=== PATIENT | female | born 1990 | race Caucasian/White ===

== ENCOUNTER 2017-08-03 10:37 | Inpatient (IN) | payer OTHER, SELFPAY ==
[2017-08-03 10:38] VITALS: BP 137/82; PULSE 112; RESP 16; TEMP 36.4; O2SAT 99; BMI 29.2
--- NOTE | 2017-08-03 11:46 | CT_ITS ---
STUDY: CT ABDOMEN AND PELVIS WITHOUT CONTRAST REASON FOR EXAM: Female, 26 years old. Right flank pain. History of kidney stones. RADIATION DOSAGE (If Supplied By Facility): CTDIvol = ( 7.37 ) mGy, DLP = ( 370.31 ) mGycm TECHNIQUE: Transaxial images were obtained from the dome of the diaphragm to the symphysis pubis without oral contrast, and without intravenous contrast. Sagittal and coronal images were reconstructed. Individualized dose optimization techniques were used for this CT. COMPARISON: Comparison is made with prior examination dated July 18, 2017. FINDINGS: The visualized lung bases are unremarkable. The visualized portions of the heart are within normal limits. Normal liver. There are surgical clips in the gallbladder fossa consistent with a prior cholecystectomy. Normal spleen. Normal pancreas. Normal bilateral adrenal glands. Moderate degree of right hydronephrosis and right hydroureter due to a 5 mm calculus in the distal portion of the right ureter just proximal to the ureterovesical junction. There is evidence of a 3 mm nonobstructive calculus in the lower pole calyx of the right kidney. Normal left kidney. Normal visualized stomach. Normal small intestine. Normal colon. The appendix is visualized and appears normal. Normal abdominal aorta. Normal inferior vena cava. Normal retroperitoneum. Normal urinary bladder. Normal abdominal wall. Normal osseous structures. CT/Abdomen/Pelvis without Cont IMPRESSION: 5 mm calculus in the distal portion of the right ureter just proximal to the ureterovesical junction causing a moderate degree of right hydronephrosis and right hydroureter. Nonobstructive 3 mm calculus in the lower pole calyx of the right kidney. Electronically Signed: Jony Alexander MD at 14:06 EST Tel [phone], Service support ,
[2017-08-03] MEDS: Ondansetron 4 MG/2 ML Vial IV ×2 (12:16→23:23)
[2017-08-03] MEDS: 0.9% Normal Saline 1,000 ML 125 ML IV (12:16)
[2017-08-03] MEDS: Ketorolac 30 MG/ML Syringe IV (12:16)
[2017-08-03 12:33] LABS: Absolute Lymphocyte Count 1.02 X10^3/ul (0.83-4.51); Absolute Neutrophil Count 8.8 X10^3/uL (2.0-7.7); Basophil# 0.01 X10^3/uL; Basophil% 0.1 % (0-1); Eosinophil# 0.01 X10^3/uL; Eosinophils% 0.1 % (0-5); Hematocrit 39.4 % (37-47); Hemoglobin 13.5 g/dl (12.0-15.0); Lymphocyte # 1.02 X10^3/ul (4.0); Lymphocyte % 9.9 % (19-41); Mean Corp Hgb Conc 34.3 g/gl (32-36); Mean Corpuscular Hgb 29.6 pg (27.0-32.0); Mean Corpuscular Volume 86.4 fL (81-99); Monocyte% 3.9 % (0-10); Neutrophil # 8.81 X10^3/uL (2.7-7.7); Neutrophil % 85.8 % (47-70); POSITIVE COUNT NO; POSITIVE DIFFERENTIAL NO; POSITIVE MORPHOLOGY NO; Platelet Count 309 K/mm3 (150-450); RBC Distribution Width CV 11.9 % (11.6-14.6); RBC Distribution Width SD 36.9 fl (35.1-43.9); Red Blood Count 4.56 M/mm3 (4.2-5.4); White Blood Count 10.3 K/mm3 (4.4-11.0)
[2017-08-03 12:41] LABS: ALB/GLOB Ratio 0.9 RATIO (0.9-2.4); AST(SGOT) 15 U/L (15-37); Alanine Aminotransfer ALT/SGPT 31 U/L (12-78); Albumin, Serum 3.8 g/dL (3.4-5.0); Alkaline Phosphatase 57 U/L (45-117); Anion Gap 11 (5-15); BUN 15 mg/dL (7-18); BUN/Creat Ratio 19.5 RATIO (10-20); Calcium,Total 8.4 mg/dL (8.5-10.1); Chloride 105 mmol/L (98-107); Creatinine, Serum 0.77 mg/dL (0.55-1.02); EST Glomerular Filtration Rate 95 mL/min (>60); Est Glom Filt Rate - Afr Amer 115 mL/min (>60); Estimated Creatinine Clearance 82.81 ml/min; Globulin 4.3 g/dL (2.2-4.2); Glucose 126 mg/dL (70-110); Lipase 206 U/L (73-393); Potassium 3.3 mmol/L (3.5-5.1); Protein, Total 8.1 g/dL (6.4-8.2); Sodium Level 140 mmol/L (136-145)
[2017-08-03 13:04] LABS: Pregnancy, Serum, hCG Quali. NEGATIVE Negative (0-9 Nonpreg)
[2017-08-03 14:08] LABS: Mucous, Urine 0 SEEN /hpf (<or=2+); Squamous Epithelial Cells - UA 0 SEEN /hpf (5-10)
[2017-08-03 14:11] LABS: Color, Urine Yellow (Yellow); Glucose, Dipstick Normal (Normal); Ketone-Dipstick 15 mg/dl (Negative); Leukocyte Esterase-Dipstick 100 /ul (Negative); Nitrite-Dipstick Negative (Negative); Occult Blood-Urine 250 /ul (Negative); Protein-Dipstick 30 mg/dl (Negative); Urine Bilirubin Dipstick Negative (Negative); Urine Clarity Turbid (Clear); Urine Urobilinogen Normal (Normal)
[2017-08-03 14:14] LABS: Internal QC Validated? YES +Cl - CLEAR BKGD; Pregnancy, Urine Negative Negative
[2017-08-03 14:17] LABS: White Blood Cells 0-5 SEEN /hpf (0-5)
[2017-08-03 14:18] LABS: Amorphous Sediment 2+; Bacteria 2+ /hpf (None Seen); Red Blood Cells-Urine 10-25 SEEN /hpf (0-5)
--- NOTE | 2017-08-03 15:23 | ED.DCSUM_ITS ---
- ER Visit Summary Date of Service: 08/03/17 Chief Complaint: [Right flank pain] History of Present Illness: The patient is a 26 F [resents the emergency department with complaint of right-sided flank pain that she states started today. Patient has had associated vomiting. Patient denies any diarrhea. Patient currently on her menstrual period. Patient states that she was recently in the hospital and diagnosed with a kidney stone on the right side. She denies any fevers.] Physical Examination: HEENT-PERRLA, EOMI. Cranial nerves II through XII grossly intact. TMs clear. Mucous membranes moist. No adenopathy. Cardiovascular-regular rate and rhythm without murmur or ectopy Lungs-clear to auscultation, chest wall stable without crepitus or subcu emphysema Abdomen-normoactive bowel sounds, soft. Patient has tenderness to the right lower quadrant. Patient has CVA tenderness on the right. There is no rebound, rigidity, or perineal signs. Extremities-intact ?4, normal range of motion, normal pulses, atraumatic] Test Results: [CBC with differential obtained showed a white blood cell count of 10.3, hemoglobin 13, hematocrit 39, platelets 309. Chemistries unremarkable other than a slightly depressed potassium at 3.3. Urinalysis unremarkable. HCG was negative. CT flank showed a 5 mm calculus at the right UVJ with moderate hydronephrosis.] Emergency Department Course and Treatment: [Patient was medicated with Toradol, Zofran, and Dilaudid. Patient continues] to complain of pain. Case will be discussed with urologist on-call to the admit patient for pain control. It was noted that patient had a CT scan within the last week that showed a questionable 3 mm stone near the right UVJ versus phlebolith with no hydro-at that time. Treatment Plan: [Admit] Disposition: [Admit] Impression: [Right ureterolithiasis with intractable pain] This note was generated with [employer] dictation software. It may contain incorrect words, spelling, and punctuation that were not noted in review of the chart prior to signing ED Disposition - Plan for ED Patient: Chief Complaint: Flank Pain Referrals: Robert Celeste DO [Primary Care Provider] -
[2017-08-03] MEDS: HYDROmorphone 1 MG/ML Syringe IV (15:37)
[2017-08-03 15:48] VITALS: BP 137/86; PULSE 84; RESP 16; O2SAT 99
[2017-08-03 15:49] VITALS: BP 137/86; PULSE 86; RESP 16; O2SAT 99
[2017-08-03 16:45] VITALS: BMI 29.5
[2017-08-03 16:46] VITALS: BP 133/79; PULSE 84; RESP 18; TEMP 36.4; O2SAT 100
--- NOTE | 2017-08-03 17:17 | PCM.HP.STD ---
Problem List (1) Ureteral calculus, right Status: Acute (2) Hydronephrosis, right Status: Acute (3) Renal colic on right side Status: Acute History of Present Illness Date of Admission: 08/03/17 Chief Complaint: 26-year-old female with a 5 mm stone distal right ureter with intractable renal colic admitted from the emergency room. The patient is a 26 year old with severe pain from a stone in the distal right ureter female who presented to the emergency room now for the second time she has a 5 mm stone in the distal right ureter intractable renal colic was admitted for admission from the emergency room. She is otherwise healthy but has not been able to pass the stone about 2 weeks. CAT scan demonstrated severe right hydronephrosis from high-grade obstruction from the distal right stone. Past Medical History Allergies latex Allergy (Verified 07/18/17 13:12) Swelling Home Medications: Ambulatory Orders Medication Instructions Recorded Venlafaxine HCl [Effexor] 37.5 mg PO DAILY 09/12/15 Ranitidine [Zantac] 150 mg PO BID PRN PRN 08/03/17 Surgical History: arthroscopy, knee, cholecystectomy Psychiatric History: No pertinent psych hx CARE ADVOCATE History: No pertinent CARE ADVOCATE history Lives: Spouse/ Significant Other Smoking Status: Never smoker Tobacco Use: Non-smoker Alcohol: None Drugs: None - *Family History Maternal History Items: No pertinent history Review of Systems Constitutional: Denies: Chills, Fever, Weight Change HEENT: Denies: Head Aches, Sinus Congestion, Sinus Drainage Cardiovascular: Denies: Chest Pain, Palpitations Respiratory: Denies: Cough, Shortness of breath at rest, Sputum production Gastrointestinal: Denies: Abdominal Pain, Nausea, Vomiting Genitourinary: Denies: Dysuria Musculoskeletal: Denies: Joint Pain, Joint Tenderness Skin: Denies: Rash, Wounds Neurological: Denies: Numbness, Tingling, Focal weakness Psychiatric: Denies: Anxiety, Depression, Homicidal Ideations, Suicidal Ideations Hematologic/ Lymphatic: Denies: Easy Bruising, Easy Bleeding VTE Information - Inpt Only VTE Present on Admission: No VTE Mechan Device Prophylaxis: SCD's Patient Problems: Active and Suspected Problems Ureteral calculus, right (Acute) Hydronephrosis, right (Acute) Renal colic on right side (Acute) - Physical Exam General: Alert, Oriented x3, Cooperative HEENT: Atraumatic, PERRLA, EOMI, Normocephalic Neck: Supple, No JVD, Negative Carotid Bruits Lungs: Clear to auscultation, Normal air movement Cardiovascular: Regular rate, No murmurs Abdomen: Bowel Sounds Present, Soft, Non Tender Extremities: No edema, Capillary Refill Less than 3 Seconds Skin: No rashes, No breakdown Musculoskeletal: No Tenderness to Palpation of Joints or Extremities Neurological: Cranial nerves II-XII grossly intact Psych/Mental Status: Normal Affect, Appropriate Vital Signs Temp Pulse Resp BP Pulse Ox 97.6 F L 84 18 133/79 H 100 08/03/17 16:46 08/03/17 16:46 08/03/17 16:46 08/03/17 16:46 08/03/17 16:46 Oxygen Delivery Method Room Air Weight: 70.76 kg Body Mass Index (BMI) 29.5 Assessment/Plan Active and Suspected Problems Ureteral calculus, right (Acute) Hydronephrosis, right (Acute) Renal colic on right side (Acute) Admitted for pain control. Will be n.p.o. at midnight. Plan for surgery tomorrow with right ESWL possible stent possible ureteroscopy. Explained to the patient the surgery and given the pain and the stone she was willing to proceed if she does not pass the stone by tomorrow.
[2017-08-03] MEDS: 0.9% Normal Saline 1,000 ML 100 ML IV (18:29)
[2017-08-03] MEDS: Ketorolac 15 MG/ML Vial IV (20:29)
[2017-08-03] MEDS: Venlafaxine XR 37.5 MG Capsule PO (20:29)
[2017-08-03 21:49] VITALS: BP 128/82; PULSE 76; RESP 18; TEMP 36.7; O2SAT 100
[2017-08-03] MEDS: Ciprofloxacin 400 MG/200 ML BAG 200 MG IV (22:08)
[2017-08-04] VITALS (9 sets, daily range): BP systolic 100–129; BP diastolic 66–94; PULSE 65–95; RESP 14–20; TEMP 36.5–37.1; O2SAT 95–100; BMI 29.5
[2017-08-04] MEDS: proCHLORPERazine 10 MG/2 ML Vial IV (05:18)
[2017-08-04] MEDS: 0.9% Normal Saline 1,000 ML 100 ML IV ×2 (05:18→16:52)
[2017-08-04] MEDS: Ciprofloxacin 400 MG/200 ML BAG 200 MG IV (09:57)
--- NOTE | 2017-08-04 12:43 | NURSING ---
off unit via bed for or. report called to sharon boateng rn
--- NOTE | 2017-08-04 13:47 | DCINST_ITS ---
Discharge Diet: Light diet - advance as tolerated Discharge Activity: Return to Normal Activity Call your doctor if you observe: Fever of 101 or Higher, Uncontrolled pain Instructions: Shock Wave Lithotripsy Allergies/Adverse Reactions: Allergies latex Allergy (Verified 07/18/17 13:12) Swelling Medications to take at Discharge Venlafaxine HCl [Effexor] 37.5 mg PO DAILY 09/12/15 Ranitidine [Zantac] 150 mg PO BID PRN PRN 08/03/17 Ciprofloxacin [Cipro] 500 mg PO BID #10 tab 08/04/17 Docusate Sodium [Colace] 100 mg PO DAILY #14 cap 08/04/17 Hydrocodone/Acetaminophen [[place] 5-325 Tablet] 1 ea PO Q4H PRN PRN #14 tab 08/04 The following prescriptions were given: Hydrocodone/Acetaminophen [[place] 5-325 Tablet] 1 ea PO Q4H PRN PRN #14 tab PRN Reason: Pain Docusate Sodium [Colace] 100 mg PO DAILY #14 cap Ciprofloxacin [Cipro] 500 mg PO BID #10 tab Primary Care Physician: Robert Celeste DO [Primary Care Provider] - Please Follow Up With: Yousuf Wallace MD When: in 2 weeks, please call to make an appointment.
--- NOTE | 2017-08-04 14:48 | PCM.OPRPT ---
Problem List (1) Ureteral calculus, right Status: Acute (2) Hydronephrosis, right Status: Acute (3) Renal colic on right side Status: Acute Report of Operation Date of Procedure: 08/04/17 Pre-Operative Diagnosis: Right distal ureteral calculi causing high-grade obstruction Post-Operative Diagnosis: Same Surgery/Procedure Performed:: Right extracorporeal shockwave lithotripsy Description of Surgical Findings:: 26-year-old female was taken back to the operating room at the smooth induction of general anesthesia she was placed supine on the table we then localize and found the stone in the distal left ureter in the pelvis we able to move the lithotripter into place and we applied shockwave lithotripter to the stone a total of 3000 shockwaves were delivered to the stone the distal ureter and. The stone broke up with a little pieces, some few fragments are still left in the ureter but should pass on her own. At that point we decided not to leave a stent in patient's anesthetic was reversed is taken back to the PACU in good condition for bypass the stone in a few days she will be discharged home and she can follow-up in the office with a KUB in a few weeks. Type of Anesthesia:: General Drains: none - Admit VTE Documentation VTE Present on Admission: No VTE Mechan Device Prophylaxis: SCD's
[2017-08-04] MEDS: Venlafaxine XR 37.5 MG Capsule PO (16:48)
[2017-08-04] MEDS: Polyethylene Glycol 3350 17 GM PACKET PO (16:48)
[2017-08-04] MEDS: Ketorolac 15 MG/ML Vial IV (16:52)
== END 2017-08-04 18:42 | disposition home or self-care (01) | DRG 691 ==
LOC: ED 12:19 → MS3 16:40
PROVIDERS: Emergency Medicine; Admitting Provider Urology; Emergency Provider Emergency Medicine; Family Provider Student in an Organized Health Care Education/Training Program; PCP Student in an Organized Health Care Education/Training Program; Visit Provider Urology
PROC: 0TF6XZZ Fragmentation in Right Ureter, External Approach (ICD-10-PCS; CPT 50590; principal; 2017-08-04 17:00)
DX: N13.2 Hydronephrosis with renal and ureteral calculous obstruction (principal); Z79.899 Other long term (current) drug therapy; Z90.49 Acquired absence of other specified parts of digestive tract
CPT/HCPCS: 74176; 80053; 81001; 81025; 83690; 84703; 85025; 99282; J7030; J0744; J2405

== ENCOUNTER → 2017-08-22 08:55 | Outpatient (CLI) | payer OTHER, SELFPAY ==
--- NOTE | 2017-08-22 08:58 | RAD_ITS ---
STUDY: X-RAY - ABDOMEN/PELVIS REASON FOR EXAM: Female, 27 years old. Kidney stones. TECHNIQUE: Single AP view of the abdomen / pelvis. COMPARISON: CT scan 08/03/2017. FINDINGS: Normal visualized lung bases. There is an unremarkable bowel gas pattern. There is no demonstrated free abdominal air. The visualized liver, spleen and kidneys are grossly normal in size and morphology. No definite renal or ureteral stones. Normal soft tissue structures. Normal visualized osseous structures. RAD/Abdomen Single View IMPRESSION: No definite renal or ureteral stones. Electronically Signed: Red Davies MD at 17:33 EST , Service support ,
== END ==
PROVIDERS: Family Provider Student in an Organized Health Care Education/Training Program; PCP Student in an Organized Health Care Education/Training Program; Visit Provider Urology
DX: N20.0 Calculus of kidney (principal)
CPT/HCPCS: 74018

== ENCOUNTER → 2017-08-22 10:12 | Outpatient (CLI) | payer OTHER, SELFPAY ==
[2017-08-22 11:17] LABS: Anion Gap 7 (5-15); BUN 12 mg/dL (7-18); BUN/Creat Ratio 20.2 RATIO (10-20); Calcium,Total 8.3 mg/dL (8.5-10.1); Chloride 107 mmol/L (98-107); Creatinine, Serum 0.59 mg/dL (0.55-1.02); EST Glomerular Filtration Rate 128 mL/min (>60); Est Glom Filt Rate - Afr Amer 155 mL/min (>60); Glucose 87 mg/dL (74-106); Potassium 3.8 mmol/L (3.5-5.1); Sodium Level 141 mmol/L (136-145)
== END ==
PROVIDERS: Family Provider Student in an Organized Health Care Education/Training Program; PCP Student in an Organized Health Care Education/Training Program; Visit Provider Urology
DX: N20.0 Calculus of kidney (principal)
CPT/HCPCS: 36415; 80048

== ENCOUNTER → 2017-10-10 13:19 | Outpatient (CLI) | payer OTHER, SELFPAY ==
[2017-10-10 14:59] LABS: Absolute Lymphocyte Count 1.02 X10^3/ul (0.83-4.51); Absolute Neutrophil Count 2.8 X10^3/uL (2.0-7.7); Eosinophil# 0.02 X10^3/uL; Eosinophils% 0.5 % (0-5); Hemoglobin 12.6 g/dl (12.0-15.0); Lymphocyte # 1.02 X10^3/ul (4.0); Lymphocyte % 23.9 % (19-41); Mean Corp Hgb Conc 33.2 g/gl (32-36); Mean Corpuscular Hgb 28.9 pg (27.0-32.0); Mean Corpuscular Volume 87.2 fL (81-99); Mean Platelet Vol. 9.8 fl (6.2-12.0); Monocyte# 0.47 X10^3/uL; Neutrophil # 2.75 X10^3/uL (2.7-7.7); Neutrophil % 64.6 % (47-70); Platelet Count 241 K/mm3 (150-450); RBC Distribution Width CV 12.7 % (11.6-14.6); RBC Distribution Width SD 40.7 fl (35.1-43.9); Red Blood Count 4.36 M/mm3 (4.2-5.4); White Blood Count 4.3 K/mm3 (4.4-11.0)
[2017-10-10 15:07] LABS: POSITIVE COUNT NO; POSITIVE DIFFERENTIAL NO; POSITIVE MORPHOLOGY NO
[2017-10-11 09:25] LABS: HIV - WCH Non-Reactive (Nonreactive); Rubella IgG 29.1 IU/mL
[2017-10-13 02:34] LABS: Rapid Plasmin Reagin (RPR) NONREACTIVE (NONREACTIVE)
[2017-10-13 09:21] LABS: HEPATITIS B SURFACE AG Negative (Negative)
== END ==
PROVIDERS: Family Provider Student in an Organized Health Care Education/Training Program; PCP Student in an Organized Health Care Education/Training Program; Visit Provider Obstetrics & Gynecology
DX: Z34.90 Encounter for supervision of normal pregnancy, unspecified, unspecified trimester (principal)
CPT/HCPCS: 85025; 86592; 86703; 86762; 86850; 86900; 86901; 87340

== ENCOUNTER → 2017-10-10 16:23 | Outpatient (CLI) | payer OTHER, SELFPAY ==
[2017-10-10 21:37] LABS: Chlamydia Trachomatis by PCR Negative (Negative); Neisserai gonorrhoeae by PCR Negative (Negative); Probe Check PASS; Sample Adequacy Control PASS; Specimen Processing Control PASS
[2017-10-13 17:19] LABS: HPV Reflexed? NOT INDICATED
== END ==
PROVIDERS: Family Provider Student in an Organized Health Care Education/Training Program; PCP Student in an Organized Health Care Education/Training Program; Visit Provider Obstetrics & Gynecology
DX: Z34.90 Encounter for supervision of normal pregnancy, unspecified, unspecified trimester (principal); Z12.4 Encounter for screening for malignant neoplasm of cervix
CPT/HCPCS: 87086; 87088; 87491; 87591; 88175; G0145

== ENCOUNTER → 2017-10-12 13:55 | Outpatient (CLI) | payer OTHER, SELFPAY ==
--- NOTE | 2017-10-12 14:01 | US_ITS ---
STUDY: THYROID ULTRASOUND REASON FOR EXAM: Female, 27 years old. Enlarged thyroid gland. TECHNIQUE: Ultrasound evaluation of the thyroid was performed with real-time and static bowers-scale imaging. COMPARISON: None. FINDINGS: RIGHT LOBE: The right lobe of the thyroid gland measures 5.5 x 1.6 x 1.6 cm. There is a homogeneous echotexture. There are several anechoic 2 mm structures throughout the thyroid parenchyma consistent with tiny cysts. LEFT LOBE: The left lobe of the thyroid gland measures 5.1 x 1.7 x 1.2 cm. There is a homogeneous echotexture. There are multiple hypoechoic regions within the left lobe of the thyroid, the largest measuring 3 mm in diameter. There is a tiny central region of echogenicity, consistent with colloid cysts. ISTHMUS: The isthmus measures 3 mm. The regional lymph nodes are normal. US/Thyroid IMPRESSION: Multiple bilateral tiny cysts, likely colloid cysts scattered throughout the thyroid parenchyma. Electronically Signed: Travon Lora DO at 14:31 EDT Tel , Service support ,
== END ==
PROVIDERS: Family Provider Student in an Organized Health Care Education/Training Program; PCP Student in an Organized Health Care Education/Training Program; Visit Provider Obstetrics & Gynecology
DX: E04.9 Nontoxic goiter, unspecified (principal)
CPT/HCPCS: 76536

== ENCOUNTER → 2017-10-17 10:47 | Outpatient (CLI) | payer OTHER, SELFPAY ==
[2017-10-17 12:27] LABS: T4 Free Direct 1.07 ng/dL (0.76-1.46)
== END ==
PROVIDERS: Family Provider Student in an Organized Health Care Education/Training Program; PCP Student in an Organized Health Care Education/Training Program; Visit Provider Obstetrics & Gynecology
DX: E01.0 Iodine-deficiency related diffuse (endemic) goiter (principal)
CPT/HCPCS: 36415; 84439; 84443

== ENCOUNTER → 2018-01-08 08:09 | Outpatient (CLI) | payer OTHER, SELFPAY ==
--- NOTE | 2018-01-08 08:10 | US_ITS ---
STUDY: SECOND AND THIRD TRIMESTER OBSTETRICAL ULTRASOUND REASON FOR EXAM: Female, 27 years old. Anatomy scan. LMP: 08/30/2017 TECHNIQUE: Transabdominal PRIOR ULTRASOUND: None. FINDINGS: There is a single intrauterine fetus. The fetus is in a transverse lie with the head on the maternal right side. There is demonstrated cardiac activity with a heart rate of 150 bpm. There is a normal amniotic fluid volume. The largest amniotic fluid pocket measures 4.4 cm. The placenta is posterior with a complete previa. There are Grade 0 placental changes. The cervix measures 5.5 cm in length. The adnexal regions are not visualized. BIOMETRY: BPD: 4.1: 18 weeks, 4 days HC: 15.8: 18 weeks, 5 days AC: 13.2: 18 weeks, 5 days FL: 2.9: 18 weeks, 6 days CI: FL/BPD: FL/HC: FL/AC: HC/AC: age by current US: 18 weeks, 5 days. KRYSTEN by current US: 06/06/2016. Estimated weight: 254 grams, +/- 37 grams, 46 %. age by prior US: weeks, days. KRYSTEN by prior US: . Age by LMP: 18 weeks, 5 days. KRYSTEN by LMP: 06/06/2016. ANATOMY: Gender: Female Cranium: Normal lateral ventricles. Normal choroid plexus. Normal cerebellum. Normal cisterna magna. Normal face, nose and lips. Chest: Normal 4-chamber heart. Abdomen/Pelvis: Normal diaphragm. Normal stomach. Normal abdominal wall. Normal cord insertion. Normal 3 vessel cord. Normal kidneys. Normal bladder. Spine: Normal cervical spine. Normal thoracic spine. Normal lumbar spine. Normal sacrum. Extremities: Normal bilateral upper extremities. Normal bilateral lower extremities. US/OB Anatomy Scan IMPRESSION: Single live fetus in a transverse presentation. No demonstrated anatomic abnormality. Placenta is grade 0 and complete previa. Cervix is closed. age by current US: 18 weeks, 5 days. KRYSTEN by current US: 06/06/2016. Estimated weight: 254 grams, +/- 37 grams, 46 %. Electronically Signed: Red Davies MD at 17:04 EDT , Service support ,
== END ==
LOC: OPUS 08:09
PROVIDERS: Family Provider Student in an Organized Health Care Education/Training Program; PCP Student in an Organized Health Care Education/Training Program; Visit Provider Obstetrics & Gynecology
DX: Z34.81 Encounter for supervision of other normal pregnancy, first trimester (principal)
CPT/HCPCS: 76805

== ENCOUNTER → 2018-03-07 12:18 | Outpatient (CLI) | payer SELFPAY ==
[2018-03-07 13:08] LABS: Absolute Lymphocyte Count 1.24 X10^3/ul (0.83-4.51); Absolute Neutrophil Count 5.4 X10^3/uL (2.0-7.7); Basophil# 0.01 X10^3/uL; Basophil% 0.1 % (0-1); Eosinophil# 0.01 X10^3/uL; Eosinophils% 0.1 % (0-5); Hematocrit 34.1 % (37-47); Hemoglobin 11.3 g/dl (12.0-15.0); Lymphocyte # 1.24 X10^3/ul (4.0); Lymphocyte % 17.6 % (19-41); Mean Corp Hgb Conc 33.1 g/gl (32-36); Mean Corpuscular Hgb 30.5 pg (27.0-32.0); Mean Corpuscular Volume 92.2 fL (81-99); Mean Platelet Vol. 9.8 fl (6.2-12.0); Monocyte# 0.41 X10^3/uL; Monocyte% 5.8 % (0-10); Neutrophil # 5.35 X10^3/uL (2.7-7.7); Neutrophil % 76.3 % (47-70); POSITIVE COUNT NO; POSITIVE DIFFERENTIAL NO; POSITIVE MORPHOLOGY NO; Platelet Count 182 K/mm3 (150-450); RBC Distribution Width SD 43.7 fl (35.1-43.9)
[2018-03-07 13:30] LABS: Glucose Challenge Gest 1H 50g 68 mg/dL (70-140)
== END ==
PROVIDERS: Nurse Practitioner Women's Health; Family Provider Student in an Organized Health Care Education/Training Program; PCP Student in an Organized Health Care Education/Training Program; Visit Provider Obstetrics & Gynecology
DX: O09.92 Supervision of high risk pregnancy, unspecified, second trimester (principal); Z67.91 Unspecified blood type, Rh negative; Z3A.00 Weeks of gestation of pregnancy not specified
CPT/HCPCS: 36415; 82950; 85025; 86850; 86900

== ENCOUNTER → 2018-03-16 08:16 | Outpatient (CLI) | payer SELFPAY | PROVIDERS: Family Provider Student in an Organized Health Care Education/Training Program; PCP Student in an Organized Health Care Education/Training Program; Visit Provider Nurse Practitioner Women's Health | DX: O44.00 Complete placenta previa NOS or without hemorrhage, unspecified trimester (principal); Z3A.00 Weeks of gestation of pregnancy not specified | CPT/HCPCS: 76816 ==

== ENCOUNTER → 2018-04-05 17:19 | Outpatient (CLI) | payer SELFPAY | PROVIDERS: Family Provider Student in an Organized Health Care Education/Training Program; PCP Student in an Organized Health Care Education/Training Program; Referring Provider Obstetrics & Gynecology; Visit Provider Obstetrics & Gynecology | DX: M54.5 Low back pain (principal) | CPT/HCPCS: 87086; 87088 ==

== ENCOUNTER → 2018-04-10 14:40 | Outpatient (CLI) | payer SELFPAY ==
[2018-04-10 16:13] LABS: Absolute Lymphocyte Count 1.21 X10^3/ul (0.83-4.51); Absolute Neutrophil Count 7.3 X10^3/uL (2.0-7.7); Basophil# 0.01 X10^3/uL; Basophil% 0.1 % (0-1); Eosinophil# 0.01 X10^3/uL; Eosinophils% 0.1 % (0-5); Hematocrit 35.5 % (37-47); Hemoglobin 11.7 g/dl (12.0-15.0); Lymphocyte # 1.21 X10^3/ul (4.0); Lymphocyte % 13.1 % (19-41); Mean Corpuscular Hgb 30.6 pg (27.0-32.0); Mean Corpuscular Volume 92.9 fL (81-99); Mean Platelet Vol. 10.7 fl (6.2-12.0); Monocyte# 0.63 X10^3/uL; Monocyte% 6.8 % (0-10); Neutrophil # 7.32 X10^3/uL (2.7-7.7); Neutrophil % 79.6 % (47-70); Platelet Count 211 K/mm3 (150-450); RBC Distribution Width CV 12.6 % (11.6-14.6); RBC Distribution Width SD 41.2 fl (35.1-43.9); Red Blood Count 3.82 M/mm3 (4.2-5.4); White Blood Count 9.2 K/mm3 (4.4-11.0)
[2018-04-10 16:16] LABS: POSITIVE COUNT NO; POSITIVE DIFFERENTIAL NO; POSITIVE MORPHOLOGY NO
[2018-04-10 16:47] LABS: ALB/GLOB Ratio 0.6 RATIO (0.9-2.4); AST(SGOT) 12 U/L (15-37); Alanine Aminotransfer ALT/SGPT 12 U/L (13-56); Albumin, Serum 2.7 g/dL (3.2-5.0); Alkaline Phosphatase 99 U/L (45-117); Anion Gap 8 (5-15); BUN 9 mg/dL (7-18); Calcium,Total 8.4 mg/dL (8.5-10.1); Chloride 105 mmol/L (98-107); Creatinine, Serum 0.56 mg/dL (0.55-1.02); EST Glomerular Filtration Rate 136 mL/min (>60); Est Glom Filt Rate - Afr Amer 164 mL/min (>60); Globulin 4.5 g/dL (2.2-4.2); Glucose 80 mg/dL (74-106); LDH 173 U/L (84-246); Potassium 3.6 mmol/L (3.5-5.1); Protein, Total 7.2 g/dL (6.4-8.2); Sodium Level 139 mmol/L (136-145)
[2018-04-10 16:59] LABS: Protein, Urine (Random) 14.2 mg/dL (<11.9); Protein:Creat Ratio 178 mg/g CRE (0-200)
== END ==
PROVIDERS: Family Provider Student in an Organized Health Care Education/Training Program; PCP Student in an Organized Health Care Education/Training Program; Referring Provider Obstetrics & Gynecology; Visit Provider Obstetrics & Gynecology
DX: I10 Essential (primary) hypertension (principal)
CPT/HCPCS: 36415; 80053; 82570; 83615; 84156; 84550; 85025

== ENCOUNTER → 2018-04-23 09:04 | Outpatient (CLI) | payer SELFPAY ==
--- NOTE | 2018-04-23 09:06 | US_ITS ---
STUDY: SECOND AND THIRD TRIMESTER OBSTETRICAL ULTRASOUND - LIMITED REASON FOR EXAM: Female, 27 years old. History of low-lying placenta. LMP: August 30, 2017. PRIOR ULTRASOUND: Comparison is made with prior study dated March 16, 2018. TECHNIQUE: Transabdominal and Transvaginal TECHNICAL QUALITY: Adequate. FINDINGS: There is a single intrauterine fetus. The fetus is in a cephalic presentation. There is demonstrated cardiac activity with a heart rate of 138 bpm. There is a normal amniotic fluid volume. The largest amniotic fluid pocket measures 3.4 cm x 1.5 cm. The amniotic fluid index (XAVI) is 9.65 cm. The placenta is posterior and low lying but not previa in location. The tip of the placenta is 1.5 cm from the cervical os. There are Grade 1 placental changes. The cervix measures 4.4 cm in length. BIOMETRY: BPD: 7.77 cm: 31 weeks, 2 days HC: 30.36 cm: 33 weeks, 6 days AC: 30.3 cm: 34 weeks, 2 days FL: 6.96 cm: 35 weeks, 5 days Age by LMP: 34 weeks, 0 days. KRYSTEN by LMP: June 04, 2018. age by prior US: 33 weeks, 5 days. KRYSTEN by prior US: June 06, 2018. age by current US: 33 weeks, 6 days. KRYSTEN by current US: June 05, 2018. Estimated weight: 2395 grams, +/- 350 grams, 52 percentile. Gender: Indeterminant US/OB Limited With Biometrics IMPRESSION: Single live uterine gestation with a mean gestational age of 33 weeks and 5 days. The measurements obtained today following the normal expected range. Low-lying posterior placenta. The distal tip of the placenta lies 1.5 cm away from the cervical os. Electronically Signed: Jony Alexander MD at 14:43 EDT Tel [phone], Service support ,
== END ==
PROVIDERS: Family Provider Student in an Organized Health Care Education/Training Program; PCP Student in an Organized Health Care Education/Training Program; Referring Provider Obstetrics & Gynecology; Visit Provider Obstetrics & Gynecology
DX: O44.43 Low lying placenta NOS or without hemorrhage, third trimester (principal); Z3A.33 33 weeks gestation of pregnancy
CPT/HCPCS: 76816

== ENCOUNTER 2018-04-29 19:26 | Outpatient (CLI) | payer SELFPAY ==
[2018-04-29 19:52] VITALS: BMI 36.8
[2018-04-29 20:18] LABS: Mucous, Urine 0 SEEN /hpf (<or=2+)
[2018-04-29 20:21] LABS: Hematocrit 33.5 % (37-47); Hemoglobin 11.1 g/dl (12.0-15.0); Mean Corp Hgb Conc 33.1 g/gl (32-36); Mean Corpuscular Hgb 30.5 pg (27.0-32.0); Mean Platelet Vol. 10.6 fl (6.2-12.0); Platelet Count 186 K/mm3 (150-450); RBC Distribution Width CV 12.2 % (11.6-14.6); RBC Distribution Width SD 39.5 fl (35.1-43.9); Red Blood Count 3.64 M/mm3 (4.2-5.4); Scan Indicated on CBC? Y/N NO; White Blood Count 8.7 K/mm3 (4.4-11.0)
[2018-04-29 20:22] LABS: Color, Urine Yellow (Yellow); Glucose, Dipstick Normal (Normal); Ketone-Dipstick Negative (Negative); Leukocyte Esterase-Dipstick 25 /ul (Negative); Nitrite-Dipstick Negative (Negative); Occult Blood-Urine Negative /ul (Negative); Protein-Dipstick Negative (Negative); Specific Gravity, Urine 1.015 (1.002-1.030); Urine Bilirubin Dipstick Negative (Negative); Urine Clarity Clear (Clear); Urine Urobilinogen Normal (Normal)
[2018-04-29 20:33] LABS: Creatinine, Serum 0.56 mg/dL (0.55-1.02); EST Glomerular Filtration Rate 135 mL/min (>60); Est Glom Filt Rate - Afr Amer 163 mL/min (>60); Estimated Creatinine Clearance 112.86 ml/min; Red Blood Cells-Urine 0-5 SEEN /hpf (0-5); Squamous Epithelial Cells - UA 0-5 SEEN /hpf (5-10)
[2018-04-29 20:34] LABS: Bacteria RARE /hpf (None Seen); White Blood Cells 0-5 SEEN /hpf (0-5)
[2018-04-29 20:37] LABS: Fibrinogen 512 mg/dl (203-444)
--- NOTE | 2018-04-30 02:33 | OB.TRI.HP_ITS ---
- Problem List (1) Abdominal pain affecting Status: Acute History of Present Illness Date of Service: 04/29/18 Was patient seen by the physician?: No Reason For Visit: R/O LABOR History of Present Illness: presents with abdominal pain no bleeding elevated temp but no fever Allergies latex Allergy (Verified 04/29/18 19:53) Swelling oxycodone Allergy (Verified 04/29/18 19:53) Itching - Pertinent Past Medical History Medical History: Past Medical History (Last Reviewed 04/18/18 @ 13:00 by Keyana Chauhan) Anxiety (Acute) effexor Surgical History: Past Surgical History (Last Reviewed 04/18/18 @ 13:00 by Keyana Chauhan) History of cholecystectomy S/P ACL repair kidney stone surgery Laboratory Studies: Laboratory Tests 04/29/18 04/29/18 04/29/18 Range/Units 20:00 20:00 20:00 WBC (4.4-11.0) K/mm3 RBC (4.2-5.4) M/mm3 Hgb (12.0-15.0) g/dl Hct (37-47) % MCV (81-99) fL MCH (27.0-32.0) pg MCHC (32-36) g/gl RDW (11.6-14.6) % RDW Differential (35.1-43.9) fl Plt Count (150-450) K/mm3 MPV (6.2-12.0) fl Fibrinogen 512 H (203-444) mg/dl Creatinine 0.56 (0.55-1.02) mg/dL Estim Creat Clear Calc 112.86 ml/min Est GFR (MDRD) Af Amer 163 (>60) mL/min Est GFR (MDRD) Non-Af 135 (>60) mL/min Urine Color Yellow (Yellow) Urine Clarity Clear (Clear) Urine pH 8.0 (5.0 - 8.0) Ur Specific [place] 1.015 (1.002-1.030) Urine Protein Negative (Negative) mg/dl Urine Glucose (UA) Normal (Normal) mg/dl Urine Ketones Negative (Negative) mg/dl Urine Occult Blood Negative (Negative) /ul Urine Nitrite Negative (Negative) Urine Bilirubin Negative (Negative) mg/dL Urine Urobilinogen Normal (Normal) mg/dl Ur Leukocyte Esterase 25 H (Negative) /ul Urine RBC 0-5 SEEN (0-5) /hpf Urine WBC 0-5 SEEN (0-5) /hpf Ur Squamous Epith Cells 0-5 SEEN (5-10) /hpf Urine Bacteria RARE (None Seen) /hpf Urine Mucus 0 SEEN (<or=2+) /hpf 04/29/18 Range/Units 20:00 WBC 8.7 (4.4-11.0) K/mm3 RBC 3.64 L (4.2-5.4) M/mm3 Hgb 11.1 L (12.0-15.0) g/dl Hct 33.5 L (37-47) % MCV 92.0 (81-99) fL MCH 30.5 (27.0-32.0) pg MCHC 33.1 (32-36) g/gl RDW 12.2 (11.6-14.6) % RDW Differential 39.5 (35.1-43.9) fl Plt Count 186 (150-450) K/mm3 MPV 10.6 (6.2-12.0) fl Fibrinogen (203-444) mg/dl Creatinine (0.55-1.02) mg/dL Estim Creat Clear Calc ml/min Est GFR (MDRD) Af Amer (>60) mL/min Est GFR (MDRD) Non-Af (>60) mL/min Urine Color (Yellow) Urine Clarity (Clear) Urine pH (5.0 - 8.0) Ur Specific [place] (1.002-1.030) Urine Protein (Negative) mg/dl Urine Glucose (UA) (Normal) mg/dl Urine Ketones (Negative) mg/dl Urine Occult Blood (Negative) /ul Urine Nitrite (Negative) Urine Bilirubin (Negative) mg/dL Urine Urobilinogen (Normal) mg/dl Ur Leukocyte Esterase (Negative) /ul Urine RBC (0-5) /hpf Urine WBC (0-5) /hpf Ur Squamous Epith Cells (5-10) /hpf Urine Bacteria (None Seen) /hpf Urine Mucus (<or=2+) /hpf NST - FHR Rate Baby A Baseline: 140 Variability:: Moderate Accelerations:: 15 x 15 Decelerations:: None NST Reactive:: Yes FHR Category:: Category I Uterine Activity:: no regular Impression/Plan abdominal pain- no contractions, reassuring labs reactive nst dc home labor precautions. flexeril given
== END 2018-04-29 21:04 | disposition home or self-care (01) ==
LOC: WPOUT 19:37 → WP 19:37
PROVIDERS: Family Provider Student in an Organized Health Care Education/Training Program; PCP Student in an Organized Health Care Education/Training Program; Visit Provider Obstetrics & Gynecology
DX: O26.899 Other specified pregnancy related conditions, unspecified trimester (principal); R10.9 Unspecified abdominal pain; O99.340 Other mental disorders complicating pregnancy, unspecified trimester; F41.9 Anxiety disorder, unspecified; Z3A.00 Weeks of gestation of pregnancy not specified
CPT/HCPCS: 36415; 59025; 59050; 81001; 82565; 85027; 85384; 87086; 87088; 99218; G0378

== ENCOUNTER 2018-05-03 13:35 | Outpatient (CLI) | payer SELFPAY ==
[2018-05-03] MEDS: Lactated Ringers 1,000 ML 999 ML IV (14:10)
[2018-05-03 14:17] VITALS: BMI 37.5
[2018-05-03 14:25] LABS: Hematocrit 35.1 % (37-47); Hemoglobin 11.8 g/dl (12.0-15.0); Mean Corp Hgb Conc 33.6 g/gl (32-36); Mean Corpuscular Hgb 30.6 pg (27.0-32.0); Mean Corpuscular Volume 91.2 fL (81-99); Mean Platelet Vol. 10.2 fl (6.2-12.0); Platelet Count 207 K/mm3 (150-450); RBC Distribution Width CV 12.3 % (11.6-14.6); RBC Distribution Width SD 40.2 fl (35.1-43.9); Red Blood Count 3.85 M/mm3 (4.2-5.4); White Blood Count 9.3 K/mm3 (4.4-11.0)
[2018-05-03 14:26] LABS: Scan Indicated on CBC? Y/N NO
[2018-05-03 14:32] LABS: International Normalized Ratio 0.9; Prothrombin Time (Protime)PT. 12.4 SECONDS (11.7-14.9)
[2018-05-03 14:33] LABS: Partial Thromboplast Time 24.6 Seconds (24.1-36.2)
[2018-05-03] MEDS: proMETHazine 25 MG/ML Syringe 12.5 MG IV (14:34)
[2018-05-03 14:35] LABS: Protein, Urine (Random) 31.1 mg/dL (<11.9); Protein:Creat Ratio 171 mg/g CRE (0-200)
[2018-05-03] MEDS: Betamethasone/Betamethasone 30 MG/5 ML Vial 12 MG IM (14:36)
[2018-05-03 14:46] LABS: AST(SGOT) 12 U/L (15-37); Alanine Aminotransfer ALT/SGPT 13 U/L (13-56); Creatinine, Serum 0.49 mg/dL (0.55-1.02); EST Glomerular Filtration Rate 159 mL/min (>60); Est Glom Filt Rate - Afr Amer 192 mL/min (>60); Estimated Creatinine Clearance 128.98 ml/min; Uric Acid 3.7 mg/dL (2.6-6.0)
[2018-05-03] MEDS: 0.9% Saline Lock 10 ML Syringe IV (15:21)
[2018-05-03] MEDS: Acetaminophen 500 MG Tablet 1000 MG PO (17:01)
[2018-05-03] MEDS: Ondansetron 4 MG/2 ML Vial IV (17:02)
--- NOTE | 2018-05-03 21:20 | OB.TRI.NOTE ---
- Problem List (1) Elevated blood pressure affecting in third trimester, antepartum Status: Acute (2) Abdominal pain affecting Status: Acute History of Present Illness Date of Service: 05/03/18 Was patient seen by the physician?: Yes Reason For Visit: RULE OUT PREECLAMPSIA Date of Service: 05/03/18 History of Present Illness: patient presents with complaints of headache intemittent visual spots and co pelvic pressure ad adbominal pain. she states she just doesn't feel good. she admits good fm and denies vb or lof. she had an initially elevated bp in the office earlier. Allergies latex Allergy (Verified 05/03/18 12:03) Swelling oxycodone Allergy (Verified 05/03/18 12:03) Itching - Pertinent Past Medical History Medical History: Past Medical History (Last Reviewed 05/03/18 @ 12:03 by Mary Ribera) Anxiety (Acute) effexor Surgical History: Past Surgical History (Last Reviewed 05/03/18 @ 12:03 by Mary Ribera) History of cholecystectomy S/P ACL repair kidney stone surgery Laboratory Studies: Laboratory Tests 05/03/18 05/03/18 05/03/18 Range/Units 14:10 14:10 14:10 WBC 9.3 (4.4-11.0) K/mm3 RBC 3.85 L (4.2-5.4) M/mm3 Hgb 11.8 L (12.0-15.0) g/dl Hct 35.1 L (37-47) % MCV 91.2 (81-99) fL MCH 30.6 (27.0-32.0) pg MCHC 33.6 (32-36) g/gl RDW 12.3 (11.6-14.6) % RDW Differential 40.2 (35.1-43.9) fl Plt Count 207 (150-450) K/mm3 MPV 10.2 (6.2-12.0) fl PT 12.4 (11.7-14.9) SECONDS INR 0.9 APTT 24.6 (24.1-36.2) Seconds Creatinine 0.49 L (0.55-1.02) mg/dL Estim Creat Clear Calc 128.98 ml/min Est GFR (MDRD) Af Amer 192 (>60) mL/min Est GFR (MDRD) Non-Af 159 (>60) mL/min Uric Acid 3.7 (2.6-6.0) mg/dL AST 12 L (15-37) U/L ALT 13 (13-56) U/L U Random Total Protein (<11.9) mg/dL Urine Creatinine (NO RANGE EST.) mg/dL Protein/Creatinin Ratio (0-200) mg/g CRE //18 Range/Units 12:15 WBC (4.4-11.0) K/mm3 RBC (4.2-5.4) M/mm3 Hgb (12.0-15.0) g/dl Hct (37-47) % MCV (81-99) fL MCH (27.0-32.0) pg MCHC (32-36) g/gl RDW (11.6-14.6) % RDW Differential (35.1-43.9) fl Plt Count (150-450) K/mm3 MPV (6.2-12.0) fl PT (11.7-14.9) SECONDS INR APTT (24.1-36.2) Seconds Creatinine (0.55-1.02) mg/dL Estim Creat Clear Calc ml/min Est GFR (MDRD) Af Amer (>60) mL/min Est GFR (MDRD) Non-Af (>60) mL/min Uric Acid (2.6-6.0) mg/dL AST (15-37) U/L ALT (13-56) U/L U Random Total Protein 31.1 H (<11.9) mg/dL Urine Creatinine 182.00 (NO RANGE EST.) mg/dL Protein/Creatinin Ratio 171 (0-200) mg/g CRE Review of Systems Constitutional: Denies: Fever, Malaise Eyes: Denies: Blurred vision, Vision Change HEENT: Denies: Head Aches, Visual Changes Cardiovascular: Denies: Chest Pain, Palpitations Respiratory: Denies: Cough, Shortness of Breath, Wheezing Gastrointestinal: Denies: Abdominal Pain, Diarrhea, Nausea, Vomiting Genitourinary: Denies: Dysuria, Hematuria Musculoskeletal: Denies: Joint Pain, Muscle pain Skin: Denies: Lesions, Rash Neurological: Denies: Blurred vision, Focal weakness, Headaches Psychiatric: Denies: Anxiety, Depression Endocrine: Denies: Heat/ Cold Intolerance Hematologic/ Lymphatic: Denies: Easy Bruising, Easy Bleeding Physical Exam General: Alert, Cooperative, No apparent distress HEENT: Atraumatic, Normocephalic. Negative for: Thyromegaly, Lymphadenopathy Cardiovascular: Regular rate Lungs: Normal air movement Abdomen: Soft, Non Tender, Gravid Neurological: Deep Tendon Reflexes 2+/4 and Symmetrical, Neuro grossly intact. Negative for: Clonus SENIOR FINANCIAL REPORTING ANALYST: Normal external genitalia. Negative for: Vulvar lesions Estimated gestational size: Appropriate for gestational size Presentation: Cephalic NST - FHR Rate Baby A Baseline: 140 Variability:: Moderate Accelerations:: 15 x 15 Decelerations:: None NST Reactive:: Yes FHR Category:: Category I Uterine Activity:: no regular Impression/Plan 27 yo with abdominal pain and elevated blood pressure- repeat bps all normal and normal labs, saravia resolved with tylenol and phenergan, zofran resolved nausea. reassuring status, BMZ given, will fu tomorrow for second dose dc home
== END 2018-05-03 17:45 | disposition home or self-care (01) ==
LOC: WPOUT 13:49 → WP 13:50
PROVIDERS: Family Provider Student in an Organized Health Care Education/Training Program; PCP Student in an Organized Health Care Education/Training Program; Referring Provider Obstetrics & Gynecology; Visit Provider Obstetrics & Gynecology
DX: O26.899 Other specified pregnancy related conditions, unspecified trimester (principal); R10.9 Unspecified abdominal pain; R03.0 Elevated blood-pressure reading, without diagnosis of hypertension; Z3A.00 Weeks of gestation of pregnancy not specified
CPT/HCPCS: 96361; 96374; 96375; 36415; 59025; 59050; 82565; 82570; 84156; 84450; 84460; 84550; 85027; 85610; 85730; 96372; 99218; J7120; A4216; G0378; J0702; J2405

== ENCOUNTER 2018-05-04 14:25 | Outpatient (CLI) | payer SELFPAY ==
[2018-05-04 15:02] VITALS: BMI 37.0
[2018-05-04] MEDS: Betamethasone/Betamethasone 30 MG/5 ML Vial 12 MG IM (15:10)
--- NOTE | 2018-05-06 02:50 | OB.TRI.NOTE ---
- Problem List (1) Abdominal pain affecting Status: Acute (2) Elevated blood pressure affecting in third trimester, antepartum Status: Acute History of Present Illness Date of Service: 05/04/18 Reason For Visit: STEROID SHOT History of Present Illness: second steroid shot Allergies latex Allergy (Verified 05/03/18 12:03) Swelling oxycodone Allergy (Verified 05/03/18 12:03) Itching - Pertinent Past Medical History Medical History: Past Medical History (Last Reviewed 05/03/18 @ 12:03 by Mary Ribera) Anxiety (Acute) effexor Surgical History: Past Surgical History (Last Reviewed 05/03/18 @ 12:03 by Mary Ribera) History of cholecystectomy S/P ACL repair kidney stone surgery Impression/Plan abdominal pain elevated bp, second celestone shot given, patient feeling better. fu as scheduled
== END 2018-05-04 15:10 | disposition home or self-care (01) ==
LOC: WPOUT 14:35 → WP 14:36
PROVIDERS: Family Provider Student in an Organized Health Care Education/Training Program; PCP Student in an Organized Health Care Education/Training Program; Referring Provider Obstetrics & Gynecology; Visit Provider Obstetrics & Gynecology
DX: O26.899 Other specified pregnancy related conditions, unspecified trimester (principal); R10.9 Unspecified abdominal pain; O16.3 Unspecified maternal hypertension, third trimester; O99.340 Other mental disorders complicating pregnancy, unspecified trimester; F41.9 Anxiety disorder, unspecified; Z3A.00 Weeks of gestation of pregnancy not specified
CPT/HCPCS: 96372; 99218; G0378; J0702

== ENCOUNTER → 2018-05-09 11:47 | Outpatient (CLI) | payer SELFPAY ==
[2018-05-09 12:12] LABS: ROM Internal Control Test YES-OK TO RESULT pt. (Internal QC); ROM Patient Test Negative (Negative)
[2018-05-09 16:14] LABS: Group B Strep DNA By PCR Negative (Negative); Internal Control PASS; Probe Check PASS; Specimen Processing Control PASS
== END ==
PROVIDERS: Family Provider Student in an Organized Health Care Education/Training Program; PCP Student in an Organized Health Care Education/Training Program; Referring Provider Obstetrics & Gynecology; Visit Provider Obstetrics & Gynecology
DX: O09.92 Supervision of high risk pregnancy, unspecified, second trimester (principal); O99.89 Other specified diseases and conditions complicating pregnancy, childbirth and the puerperium; N89.8 Other specified noninflammatory disorders of vagina; Z3A.00 Weeks of gestation of pregnancy not specified
CPT/HCPCS: 84112; 87081; 87653

== ENCOUNTER 2018-05-10 13:30 | Outpatient (CLI) | payer SELFPAY ==
[2018-05-10 13:37] VITALS: BMI 37.4
[2018-05-10 14:23] LABS: Protein, Urine (Random) 30.5 mg/dL (<11.9); Protein:Creat Ratio 188 mg/g CRE (0-200)
--- NOTE | 2018-05-21 21:11 | OB.TRI.NOTE ---
- Problem List (1) Decreased movement Status: Acute History of Present Illness Date of Service: 05/10/18 Was patient seen by the physician?: No Reason For Visit: DECREASED MOVEMENT History of Present Illness: decreased movement Allergies latex Allergy (Verified 05/21/18 12:00) Swelling oxycodone Allergy (Verified 05/21/18 12:00) Itching - Pertinent Past Medical History Medical History: Past Medical History (Last Reviewed 05/21/18 @ 12:00 by Keyana Chauhan) Anxiety (Acute) effexor Surgical History: Past Surgical History (Last Reviewed 05/21/18 @ 12:00 by Keyana Chauhan) History of cholecystectomy S/P ACL repair kidney stone surgery Laboratory Studies: Laboratory Tests 05/10/18 Range/Units 14:00 U Random Total Protein 30.5 H (<11.9) mg/dL Urine Creatinine 162.00 (NO RANGE EST.) mg/dL Protein/Creatinin Ratio 188 (0-200) mg/g CRE NST - FHR Rate Baby A Baseline: 140 Variability:: Moderate Accelerations:: 15 x 15 Decelerations:: None NST Reactive:: Yes FHR Category:: Category I Uterine Activity:: irregular Impression/Plan decreased movement, reactive nst reassuring FHT dc home fu as scheduled
== END 2018-05-10 14:30 | disposition home or self-care (01) ==
LOC: WPOUT 13:36 → WP 13:36
PROVIDERS: Family Provider Student in an Organized Health Care Education/Training Program; PCP Student in an Organized Health Care Education/Training Program; Referring Provider Obstetrics & Gynecology; Visit Provider Obstetrics & Gynecology
DX: O36.8190 Decreased fetal movements, unspecified trimester, not applicable or unspecified (principal); O99.340 Other mental disorders complicating pregnancy, unspecified trimester; F41.9 Anxiety disorder, unspecified; Z3A.00 Weeks of gestation of pregnancy not specified
CPT/HCPCS: 59025; 59050; 82570; 84156; 99218; G0378

== ENCOUNTER → 2018-05-14 09:10 | Outpatient (CLI) | payer SELFPAY ==
--- NOTE | 2018-05-14 09:13 | US_ITS ---
STUDY: SECOND AND THIRD TRIMESTER OBSTETRICAL ULTRASOUND - LIMITED REASON FOR EXAM: Female, 27 years old. Routine survey. History of a low-lying placenta. LMP: August 28, 2017. PRIOR ULTRASOUND: Comparison is made with prior examination dated April 23, 2018. TECHNIQUE: Transabdominal and Transvaginal TECHNICAL QUALITY: Adequate. FINDINGS: There is a single intrauterine fetus. The fetus is in a cephalic presentation. There is demonstrated cardiac activity with a heart rate of 136 bpm. There is a normal amniotic fluid volume. The largest amniotic fluid pocket measures 3.0 cm x 8.7 cm. The amniotic fluid index (XAVI) is 7.6 cm. The placenta is posterior and low lying but not previa in location. The distal tip of the placenta is 1.9 cm away from the cervical os. There are Grade 1 placental changes. The cervix measures 4.27 cm in length. BIOMETRY: BPD: 8.41 cm: 34 weeks, 0 days HC: 31.75 cm: 35 weeks, 5 days AC: 33.27 cm: 37 weeks, 2 days FL: 7.05 cm: 36 weeks, 1 days Age by LMP: 37 weeks, 0 days. KRYSTEN by LMP: June 04, 2018. age by prior US: 36 weeks, 6 days. KRYSTEN by prior US: June 05, 2018. age by current US: 35 weeks, 6 days. KRYSTEN by current US: June 12, 2018. Estimated weight: 2921 grams, +/- 426 grams, 39 percentile. Gender: Indeterminant US/OB Limited With Biometrics IMPRESSION: Single live intrauterine gestation with mean gestational age of 36 weeks and 6 days. The measurements obtained today following the normal expected range. Posterior low-lying placenta. Distal tip of the placenta measures 1.9 cm away from the cervical os. Electronically Signed: Jony Alexander MD at 9:39 EST Tel [phone], Service support ,
== END ==
PROVIDERS: Family Provider Student in an Organized Health Care Education/Training Program; PCP Student in an Organized Health Care Education/Training Program; Referring Provider Obstetrics & Gynecology; Visit Provider Obstetrics & Gynecology
DX: O44.43 Low lying placenta NOS or without hemorrhage, third trimester (principal); Z3A.00 Weeks of gestation of pregnancy not specified
CPT/HCPCS: 76816

== ENCOUNTER → 2018-05-16 18:19 | Outpatient (CLI) | payer SELFPAY ==
[2018-05-16 18:45] LABS: Protein, Urine (Random) 15.6 mg/dL (<11.9); Protein:Creat Ratio 119 mg/g CRE (0-200)
== END ==
PROVIDERS: Family Provider Student in an Organized Health Care Education/Training Program; PCP Student in an Organized Health Care Education/Training Program; Referring Provider Obstetrics & Gynecology; Visit Provider Obstetrics & Gynecology
DX: I10 Essential (primary) hypertension (principal)
CPT/HCPCS: 82570; 84156

== ENCOUNTER 2018-05-27 04:25 | Inpatient (IN) | payer SELFPAY ==
[2018-05-27 03:37] VITALS: BMI 34.9
[2018-05-27] MEDS: Lactated Ringers 1,000 ML 50 ML IV (04:40)
[2018-05-27 05:08] LABS: Hemoglobin 12.1 g/dl (12.0-15.0); Mean Corp Hgb Conc 32.7 g/gl (32-36); Mean Corpuscular Hgb 29.6 pg (27.0-32.0); Mean Corpuscular Volume 90.5 fL (81-99); Mean Platelet Vol. 10.3 fl (6.2-12.0); Platelet Count 236 K/mm3 (150-450); RBC Distribution Width CV 12.6 % (11.6-14.6); RBC Distribution Width SD 41.1 fl (35.1-43.9); Red Blood Count 4.09 M/mm3 (4.2-5.4); White Blood Count 10.7 K/mm3 (4.4-11.0)
[2018-05-27 05:12] LABS: Scan Indicated on CBC? Y/N NO
--- NOTE | 2018-05-27 05:58 | PCM.HP.OB ---
- Problem List (1) heart rate decelerations affecting management of mother Status: Acute (2) Low lying placenta nos or without hemorrhage, third trimester Status: Acute Comment: 2 cm away- cleared for vaginal delivery (3) Supervision of high risk in second trimester Status: Acute Comment: PRR KRYSTEN 06/06/18 girl Aleks Dave Lucas (4) Rh negative state in antepartum period Status: Acute Comment: RHOGAM PRN and 28 weeks- given (5) Anxiety Status: Acute Comment: effexor (6) Thyromegaly Status: Acute Comment: Cyst only on US, normal TSH History Date of Admission: 08/03/17 Final KRYSTEN: 06/04/18 Gestational age: 38 Weeks and 6 Days History of this : This is a 27 year-old, at 38 weeks gestational age presents due to contractions and she was found to not make any cervical change however she had a spontaneous heart rate deceleration that lasted 3 minutes. Due to the decel, the decision for delivery was made. Overall there is a category I tracing present so an IOL for planned is appropriate. Medical History: Medical History (Last Reviewed 05/21/18 @ 12:00 by Keyana Chauhan) Anxiety (Acute) F41.9 effexor Surgical History: Surgical History (Last Reviewed 05/21/18 @ 12:00 by Keyana Chauhan) History of cholecystectomy Z90.49 S/P ACL repair Z98.890 kidney stone surgery Allergies latex Allergy (Verified 05/27/18 03:39) Swelling oxycodone Allergy (Verified 05/27/18 03:39) Itching Home Medications: Home Medications vitamin,calcium,mcqswzoj-xzzf-bjovc acid tablet 1 tab PO QDAY 10/10/17 venlafaxine 37.5 mg tablet 37.5 mg PO DAILY #90 tab 11/21/17 ranitidine 150 mg tablet 150 mg PO BID PRN PRN #60 tab 03/09/18 Smoking Status: Never smoker Alcohol: None Number of Fetus(es): 1 Heart Tracins moderate variability reactive category I tracing now, previous 3 minute decel into 90s TOCO Analysis: irregular History Past Pregnancies: Past PregnanciesPregancy History 4 Elective abortions Hx Para 2 Spontaneous abortions 1 Hx # Term Pregnancies 2 Ectopic pregnancies Hx # Pregnancies Multiple births # of living children 2 Past Pregnancies Del. Date Name GA/Weeks Outcome Route Bth Weight Gen Labor Lgth Anesthesia Del Locatn Provider FOB Unknown 2008 Aleks 38 live - full term 6lbs 15 oz Male epidural [facility] AT Unknown 2016 [place] 38 live - full term 7LBS 4OZ Male epidural [facility] rr Labs: Mom's Problem List Problem Status Onset Code heart rate decelerations affecting management of mother Acute O36.8390 Mom's Labs & Results 05/27/18 05/27/18 05/27/18 04:40 04:40 04:40 WBC 10.7 RBC 4.09 L Hgb 12.1 Hct 37.0 MCV 90.5 MCH 29.6 MCHC 32.7 RDW 12.6 RDW Differential 41.1 Plt Count 236 MPV 10.3 Blood Type Cancelled Pending A1 Antigen Typing Cancelled Rho(D) Type Cancelled Antibody Screen Cancelled Pending Course Did the patient receive Yes care? Labs Blood Type: A RH: NEGATIVE RPR/VDRL/Syphilis Nonreactive Rubella status Immune HbSAg Negative Date Done: 10/10/17 Chlamydia Negative Gonorrhea Negative HIV/AIDS Non-Reactive Group B Strep: Negative Current Obstetrical History Gestational Diabetes No Incompetent Cervix No Infertility No IUGR No Macrosomia No Hypertension/Pre-eclampsia Yes: higher bp towards the end of , but no meds Placenta Previa/Abruption Yes: resolved PTL/PROM No Uterine anomaly No Oligohydramnios No Polyhydramnios No Multiple gestation No Past Medical History Asthma No Diabetes No Hypertension No Heart disease No Mitral valve prolapse No Neurologic/Seizure disorder/ No Migraines Kidney disease No Liver disease No Varicosities No Clotting disorders/Hx of DVT No Thyroid Dysfunction No Other medical diseases No Psychiatric disorders Yes: anxiety and depression Major trauma No Abnormal PAP smear No Sleep apnea No Mammogram in the last 2 years No Social History Marital Status: Alleged father Lucas Blake Hx Smoking No Smoking Status Never smoker Expected Delivery Method: Spontaneous Vaginal Describe any other labor & delivery plans:: OB Visit. KRYSTEN Calculator. Estimated Delivery Date 06/06/18. Based on Ultrasound Date 10/10/17. Current WG 37w 5d. Number 1. Expected Delivery Route/Plan. . Specific Issue/Plans. flu vaccine: no. minichart given: yes. tdap vaccine: given. rhogam: given. LARC form signed:declines. labor support person: Lucas. pain management: epidural. cut cord/dad catch: yes. : yes. PP control planned: []. special requests: [] Review of Systems Constitutional: Denies: Fever, Malaise Eyes: Denies: Blurred vision, Vision Change HEENT: Denies: Head Aches, Visual Changes Cardiovascular: Denies: Chest Pain, Palpitations Respiratory: Denies: Cough, Shortness of Breath, Wheezing Gastrointestinal: Denies: Abdominal Pain, Diarrhea, Nausea, Vomiting Genitourinary: Denies: Dysuria, Hematuria Musculoskeletal: Denies: Joint Pain, Muscle pain Skin: Denies: Lesions, Rash Neurological: Denies: Blurred vision, Focal weakness, Headaches Psychiatric: Denies: Anxiety, Depression Endocrine: Denies: Heat/ Cold Intolerance Hematologic/ Lymphatic: Denies: Easy Bruising, Easy Bleeding Physical Exam General: Alert, Cooperative, No apparent distress HEENT: Atraumatic, Normocephalic. Negative for: Thyromegaly, Lymphadenopathy Cardiovascular: Regular rate Lungs: Normal air movement Abdomen: Soft, Non Tender, Gravid Neurological: Deep Tendon Reflexes 2+/4 and Symmetrical, Neuro grossly intact. Negative for: Clonus [employer]: Normal external genitalia. Negative for: Vulvar lesions Estimated gestational size: Appropriate for gestational size Presentation: Cephalic Assessment/Plan All Active Problems (Last Reviewed 05/21/18 @ 12:00 by Keyana Chauhan) heart rate decelerations affecting management of mother (Acute) Low lying placenta nos or without hemorrhage, third trimester (Acute) Supervision of high risk in second trimester (Acute) Rh negative state in antepartum period (Acute) Anxiety (Acute) Thyromegaly (Acute) Abdominal pain affecting (Resolved) Decreased movement (Resolved) Elevated blood pressure affecting in third trimester, antepartum (Resolved) Hydronephrosis, right (Resolved) Placenta previa antepartum (Resolved) Renal colic on right side (Resolved) Ureteral calculus, right (Resolved) This is a 27 year-old, , at 38 weeks gestational age presents for IOL secondary to heart rate decel Patient presents IOL, plan expectant management for , cytotec then pitocin/AROM PRN Pain management: plans epidural. GBS neg rh neg- rhogam after delivery if indicated Management of any complications: borderline low lying placenta- resolved I have reviewed the [facility] and made any clinically relevant updates.
[2018-05-27] MEDS: miSOPROStol 25 MCG TABLET VAGINAL (08:20)
--- NOTE | 2018-05-27 12:08 | PCM.PN.BLA ---
Progress Note fht 140s moderate variability reactive no decels s/p cytotec x 1- now /-3 recommend pitocin and epi PRN
[2018-05-27] MEDS: Oxytocin 30 units/NS 500 ml 30 UNITS/500 ML IV.SOLN 167 UNITS IV ×3 (12:55→18:30)
[2018-05-27] MEDS: Oxytocin 30 units/NS 500 ml 30 UNITS/500 ML IV.SOLN 334 UNITS IV (18:00)
--- NOTE | 2018-05-27 18:16 | PCM.OB.VAG ---
- Problem List (1) heart rate decelerations affecting management of mother Status: Acute (2) Low lying placenta nos or without hemorrhage, third trimester Status: Acute Comment: 2 cm away- cleared for vaginal delivery (3) Supervision of high risk in second trimester Status: Acute Comment: PRR KRYSTEN 06/06/18 girl Aleks Dave Lucas (4) Rh negative state in antepartum period Status: Acute Comment: RHOGAM PRN and 28 weeks- given (5) Anxiety Status: Acute Comment: effexor (6) Thyromegaly Status: Acute Comment: Cyst only on US, normal TSH Vaginal Delivery Maternal Presentation: Medically Indicated Induction 27-year-old at 38 weeks 6 days induction of labor secondary to heart rate decelerations Method of Induction: Pitocin, Cytotec Medical Reason for Induction: Compromise: list: Amniotic Membrane Rupture Type: Artificial Amniotic Fluid Description: Moderate meconium Final KRYSTEN: 06/04/18 Gestational age: 38 Weeks and 6 Days Date of Procedure: 05/27/18 Pre-Operative Diagnosis: Induction of labor deceleration Post-Operative Diagnosis: Same Surgery/ Procedure Performed: Spontaneous Vaginal Delivery Type of Anesthesia: Epidural Description of Procedure: Patient began pushing and delivered the head in the MALATHI presentation. The head was delivered atraumatically a loose nuchal cord x2 was identified and easily reduced over the infant's head. The anterior and posterior shoulders delivered without complication followed by the rest of the and the was placed on the maternal abdomen. Delayed cord clamping was employed for approximately 60 seconds. Cord was clamped and cut and gentle traction was applied to the cord and the placenta delivered spontaneously immediately following it was noted to be intact with three-vessel cord. The perineum and vagina were inspected and noted to have no laceration. EBL was 400 cc and some mild uterine atony was encountered but with bimanual massage and emptying the bladder bleeding was within normal limits. Methergine x1 was given.. Patient and tolerated delivery well. Presentation: MALATHI Placental Delivery Description: Spontaneous Placenta Disposition: [facility] Cord Vessel Description: 3 Vessels Cord Entanglement: Around neck x 2, loose Estimated Blood Loss: 400 Infant A gender: Female Episiotomy Description: None Laceration: None Medications given after delivery: IV Pitocin, IM Methergin Complications: None
[2018-05-28] MEDS: Acetaminophen 500 MG Tablet 1000 MG PO (00:06)
[2018-05-28 00:08] VITALS: BP 102/68; PULSE 97; RESP 16; TEMP 36.3; O2SAT 97
[2018-05-28 04:00] VITALS: BP 122/65; PULSE 85; RESP 18; TEMP 36.4
--- NOTE | 2018-05-28 07:52 | PCM.PN.OB ---
Patient Problems: Active and Suspected Problems (Last Reviewed 05/21/18 @ 12:00 by Keyana Chauhan) heart rate decelerations affecting management of mother (Acute) Subjective: No CP, LOF. Doing well - Physical Exam General: Alert, Oriented x3 Abdomen: Soft, Non Tender, - - FF below U Vital Signs Temp Pulse Resp BP Pulse Ox 97.5 F L 85 18 122/65 H 97 05/28/18 04:00 05/28/18 04:00 05/28/18 04:00 05/28/18 04:00 05/28/18 00:08 Oxygen Delivery Method Room Air Weight: 203 lb 14.841 oz Body Mass Index (BMI) 34.9 Finger Stick Blood Glucose 84 Intake and Output for Last 24 Hours 05/26/18 05/27/18 05/28/18 23:59 23:59 23:59 Output Total 400 / 400 350 / 350 Balance -400 / -400 -350 / -350 Laboratory Tests Past 24 Hrs 05/27/18 20:51 Screen NEGATIVE Baby's Blood Type A POSITIVE Baby's ANTWAN NEGATIVE Medical Necessity - Tobacco Use Smoking Status: Never smoker Assessment/Plan All Active Problems (Last Reviewed 05/21/18 @ 12:00 by Keyana Chauhan) heart rate decelerations affecting management of mother (Acute) Low lying placenta nos or without hemorrhage, third trimester (Acute) Supervision of high risk in second trimester (Acute) Rh negative state in antepartum period (Acute) Anxiety (Acute) Thyromegaly (Acute) Abdominal pain affecting (Resolved) Decreased movement (Resolved) Elevated blood pressure affecting in third trimester, antepartum (Resolved) Hydronephrosis, right (Resolved) Placenta previa antepartum (Resolved) Renal colic on right side (Resolved) Ureteral calculus, right (Resolved) PPD #1: Routine care, needs rhogam. Pain controlled.
[2018-05-28] MEDS: Venlafaxine HCl 75 MG Tablet 37.5 MG PO (08:02)
[2018-05-28] MEDS: Senna/Docusate Sodium 1 Tablet PO (08:02)
[2018-05-28] MEDS: Naproxen 250 MG Tablet PO (08:04)
[2018-05-28 08:53] VITALS: BP 105/76; PULSE 87; RESP 16; TEMP 36.3; O2SAT 98
[2018-05-28] MEDS: Prenatal Vits Tablet 1 TABLET PO (10:34)
[2018-05-28 11:50] VITALS: BP 108/81; PULSE 80; RESP 16; TEMP 36.3; O2SAT 94
[2018-05-28 15:15] VITALS: BP 119/56; PULSE 87; RESP 16; TEMP 36.3
[2018-05-28 19:40] VITALS: BP 126/63; PULSE 90; RESP 16; TEMP 36.3; O2SAT 97
[2018-05-29 01:00] VITALS: BP 125/71; PULSE 85; RESP 16; TEMP 35.9; O2SAT 98
[2018-05-29] MEDS: Naproxen 250 MG Tablet PO (01:01)
[2018-05-29 08:12] VITALS: BP 112/67; PULSE 80; RESP 18; TEMP 36.3
[2018-05-29] MEDS: Senna/Docusate Sodium 1 Tablet PO (08:27)
[2018-05-29] MEDS: Prenatal Vits Tablet 1 TABLET PO (08:27)
--- NOTE | 2018-05-29 08:36 | PCM.PN.OB ---
Patient Problems: Active and Suspected Problems (Last Reviewed 05/21/18 @ 12:00 by Keyana Chauhan) heart rate decelerations affecting management of mother (Acute) Subjective: No CP, SOb. Doing well. Plans home today. - Physical Exam General: Alert, Oriented x3 Abdomen: Soft, Non Tender, - - FF below U Vital Signs Temp Pulse Resp BP Pulse Ox 97.3 F L 80 18 112/67 98 05/29/18 08:12 05/29/18 08:12 05/29/18 08:12 05/29/18 08:12 05/29/18 01:00 Oxygen Delivery Method Room Air Weight: 203 lb 14.841 oz Body Mass Index (BMI) 34.9 Finger Stick Blood Glucose 84 Intake and Output for Last 24 Hours 05/27/18 05/28/18 05/29/18 23:59 23:59 23:59 Output Total 400 / 400 350 / 350 Balance -400 / -400 -350 / -350 Medical Necessity - Tobacco Use Smoking Status: Never smoker Assessment/Plan All Active Problems (Last Reviewed 05/21/18 @ 12:00 by Keyana Chauhan) heart rate decelerations affecting management of mother (Acute) Low lying placenta nos or without hemorrhage, third trimester (Acute) Supervision of high risk in second trimester (Acute) Rh negative state in antepartum period (Acute) Anxiety (Acute) Thyromegaly (Acute) Abdominal pain affecting (Resolved) Decreased movement (Resolved) Elevated blood pressure affecting in third trimester, antepartum (Resolved) Hydronephrosis, right (Resolved) Placenta previa antepartum (Resolved) Renal colic on right side (Resolved) Ureteral calculus, right (Resolved) PPD #2 Routine care. . Home today. Needs rhogam.
--- NOTE | 2018-05-29 08:38 | PCM.DCVAG ---
Additional Instructions: If you experience any of the following, contact your healthcare provider. Bleeding that soaks a pad every hour for 2 hours Fever 100.4 or higher Unrelieved incision or abdominal pain Swelling, redness, discharge or bleeding from your incision or episiotomy site Your incision begins to separate Problems urinating (including inability to urinate or burning while urinating). Visual changes Severe headache Flu-like symptoms Pain or redness in one of both of your breasts Pain, warmth, tenderness or swelling in your legs, especially the calf area Frequent nausea and vomiting Symptoms of depression or anxiety If you experience any of the following, call 911 or go to the nearest Emergency Room. Chest pain Problems breathing Seizure activity Partial or complete paralysis of a body part, slurred speech, weakness or drooping of the face, or a sudden inability to walk or hold your balance Allergies/Adverse Reactions: Allergies latex Allergy (Verified 05/27/18 03:39) Swelling oxycodone Allergy (Verified 05/27/18 03:39) Itching Medications to take at Discharge vitamin,calcium,wxlvzcly-saaa-xnfxb acid tablet 1 tab PO QDAY 10/10/17 venlafaxine 37.5 mg tablet 37.5 mg PO DAILY #90 tab 11/21/17 ranitidine 150 mg tablet 150 mg PO BID PRN PRN #60 tab 03/09/18 Primary Care Physician: Robert Celeste DO [Primary Care Provider] - Test Results: Test results from this visit will be discussed in further detail at your follow-up appointment, if applicable.
--- NOTE | 2018-05-29 08:39 | DCINST_ITS ---
Additional Instructions: If you experience any of the following, contact your healthcare provider. * Bleeding that soaks a pad every hour for 2 hours * Fever 100.4 or higher * Unrelieved incision or abdominal pain * Swelling, redness, discharge or bleeding from your incision or episiotomy site * Your incision begins to separate * Problems urinating (including inability to urinate or burning while urinating). * Visual changes * Severe headache * Flu-like symptoms * Pain or redness in one of both of your breasts * Pain, warmth, tenderness or swelling in your legs, especially the calf area * Frequent nausea and vomiting * Symptoms of depression or anxiety If you experience any of the following, call 911 or go to the nearest Emergency Room. * Chest pain * Problems breathing * Seizure activity * Partial or complete paralysis of a body part, slurred speech, weakness or drooping of the face, or a sudden inability to walk or hold your balance Allergies/Adverse Reactions: Allergies latex Allergy (Verified 05/27/18 03:39) Swelling oxycodone Allergy (Verified 05/27/18 03:39) Itching Medications to take at Discharge vitamin,calcium,xyusredw-qwaw-jgpdc acid tablet 1 tab PO QDAY 10/10/17 venlafaxine 37.5 mg tablet 37.5 mg PO DAILY #90 tab 11/21/17 ranitidine 150 mg tablet 150 mg PO BID PRN PRN #60 tab 03/09/18 Primary Care Physician: Robert Celeste DO [Primary Care Provider] - Test Results: Test results from this visit will be discussed in further detail at your follow- up appointment, if applicable.
[2018-05-29] MEDS: Venlafaxine HCl 75 MG Tablet 37.5 MG PO (09:48)
--- NOTE | 2018-05-29 11:00 | NURSING ---
certificate verified with mother and father. Telecia signed to confirm spelling and correct dates prior to discharge. this RN served as the witness. community health education coordinator aware that copy of signed paperwork not available at discharge. parents ended up taking paperwork in suitcase. this RN signed a second copy without mother's signature just stating a witness was indeed present. no further needs at this time.
== END 2018-05-29 11:20 | disposition home or self-care (01) | DRG 806 ==
LOC: WPOUT 04:27 → WP 05:35
PROVIDERS: Admitting Provider Obstetrics & Gynecology; Family Provider Student in an Organized Health Care Education/Training Program; PCP Student in an Organized Health Care Education/Training Program; Referring Provider Obstetrics & Gynecology; Visit Provider Obstetrics & Gynecology
DX: O76 Abnormality in fetal heart rate and rhythm complicating labor and delivery (principal); O44.43 Low lying placenta NOS or without hemorrhage, third trimester; Z37.0 Single live birth; O36.0130 Maternal care for anti-D [Rh] antibodies, third trimester, not applicable or unspecified; O69.81X0 Labor and delivery complicated by cord around neck, without compression, not applicable or unspecified; O77.0 Labor and delivery complicated by meconium in amniotic fluid; O99.344 Other mental disorders complicating childbirth; F32.9 Major depressive disorder, single episode, unspecified; F41.9 Anxiety disorder, unspecified; O99.284 Endocrine, nutritional and metabolic diseases complicating childbirth; E01.0 Iodine-deficiency related diffuse (endemic) goiter; O99.62 Diseases of the digestive system complicating childbirth; K21.9 Gastro-esophageal reflux disease without esophagitis; Z3A.38 38 weeks gestation of pregnancy
CPT/HCPCS: 59025; 59050; 85027; 85461; 86850; 86900; 86901; 90384; 99218; J7120; G0378; J2790

== ENCOUNTER → 2018-09-17 18:18 | Outpatient (CLI) | payer SELFPAY ==
[2018-09-17 16:51] VITALS: BMI 34.9
== END ==
PROVIDERS: Family Provider Student in an Organized Health Care Education/Training Program; PCP Student in an Organized Health Care Education/Training Program; Referring Provider Nurse Practitioner Women's Health; Visit Provider Nurse Practitioner Women's Health
DX: N39.0 Urinary tract infection, site not specified (principal)
CPT/HCPCS: 87086; 87088

== ENCOUNTER → 2020-09-04 14:24 | Outpatient (CLI) | payer SELFPAY ==
[2018-09-17 16:51] VITALS: BMI 34.9
[2020-09-04 15:24] LABS: hCG Titer Quant., Serum 16 mIU/mL (1-3)
== END ==
LOC: PAVLAB 14:26
PROVIDERS: PCP Student in an Organized Health Care Education/Training Program; Referring Provider Obstetrics & Gynecology; Visit Provider Obstetrics & Gynecology
DX: N92.6 Irregular menstruation, unspecified (principal)
CPT/HCPCS: 36415; 84702

== ENCOUNTER → 2020-09-06 16:24 | Outpatient (CLI) | payer SELFPAY ==
[2018-09-17 16:51] VITALS: BMI 34.9
[2020-09-06 17:22] LABS: hCG Titer Quant., Serum 77 mIU/mL (1-3)
== END ==
LOC: LAB 16:25
PROVIDERS: PCP Student in an Organized Health Care Education/Training Program; Visit Provider Obstetrics & Gynecology
DX: O20.0 Threatened abortion (principal); Z3A.00 Weeks of gestation of pregnancy not specified
CPT/HCPCS: 36415; 84702

== ENCOUNTER → 2020-10-01 | Outpatient (CLI) | payer SELFPAY ==
[2020-10-01 10:03] VITALS: BMI 32.7
[2020-10-01 15:34] LABS: Amphetamine Urine VISTA NEGATIVE (<1000 ng/mL); Barbiturate Urine VISTA NEGATIVE (< 200 ng/mL); Benzodiazepine Urine VISTA NEGATIVE (< 200 ng/mL); Cocaine Urine VISTA NEGATIVE (< 300 ng/mL); Ecstacy Urine VISTA NEGATIVE (< 500 ng/mL); Methadone Urine VISTA NEGATIVE (< 300 ng/mL); PCP Urine VISTA NEGATIVE (< 25 ng/mL); THC Urine VISTA NEGATIVE (< 50 ng/mL); Vista UDS pH Range 5
[2020-10-05 07:06] LABS: Chlamydia By Nucleic Acid AMP Negative (Negative)
[2020-10-05 12:34] LABS: Gonococcus By Nucleic Acid AMP Negative (Negative)
[2020-10-08 03:07] LABS: HPV Genotype 16, Aptima Negative (Negative)
[2020-10-08 09:02] LABS: HPV APTIMA, High Risk Positive (Negative); HPV Genotype 18,45 Aptima Negative (Negative)
== END | disposition home or self-care (01) ==
LOC: LABSPEC 13:26
PROVIDERS: PCP Student in an Organized Health Care Education/Training Program; Visit Provider Obstetrics & Gynecology
DX: Z34.80 Encounter for supervision of other normal pregnancy, unspecified trimester (principal); Z12.4 Encounter for screening for malignant neoplasm of cervix
CPT/HCPCS: 80307; 87086; 87088; 87186; 87491; 87591; 87624; 88175; G0145

== ENCOUNTER → 2020-10-15 | Outpatient (CLI) | payer SELFPAY ==
[2020-10-15 09:56] VITALS: BMI 32.7
[2020-10-15 13:52] LABS: Protein, Urine (Random) 18.5 mg/dL (<11.9); Protein:Creat Ratio 128 mg/g CRE (0-200)
== END | disposition home or self-care (01) ==
PROVIDERS: PCP Student in an Organized Health Care Education/Training Program; Visit Provider Obstetrics & Gynecology
DX: O13.1 Gestational [pregnancy-induced] hypertension without significant proteinuria, first trimester (principal); Z3A.00 Weeks of gestation of pregnancy not specified
CPT/HCPCS: 82570; 84156

== ENCOUNTER → 2020-10-26 11:55 | Outpatient (CLI) | payer SELFPAY ==
[2020-10-26 11:27] VITALS: BMI 33.0
[2020-10-26 12:48] LABS: Absolute Lymphocyte Count 1.27 X10^3/uL (0.83-4.51); Absolute Neutrophil Count 4.3 X10^3/uL (2.0-7.7); Basophil# 0.01 X10^3/uL; Basophil% 0.2 % (0-1); Eosinophil# 0.01 X10^3/uL; Eosinophils% 0.2 % (0-5); Hematocrit 39.6 % (37-47); Hemoglobin 12.9 g/dL (12.0-15.0); Lymphocyte # 1.27 X10^3/ul (0.83-4.51); Lymphocyte % 21.6 % (19-41); Mean Corp Hgb Conc 32.6 g/dL (32-36); Mean Corpuscular Hgb 28.5 pg (27.0-32.0); Mean Corpuscular Volume 87.4 fL (81-99); Mean Platelet Vol. 10.5 fl (6.2-12.0); Monocyte% 5.1 % (0-10); NRBC Flagged by Analyzer 0 % (0-5); Neutrophil # 4.29 X10^3/uL (2.7-7.7); Neutrophil % 72.7 % (47-70); Platelet Count 214 K/mm3 (150-450); RBC Distribution Width SD 38.3 fl (35.1-43.9); Red Blood Count 4.53 M/mm3 (4.2-5.4); White Blood Count 5.9 K/mm3 (4.4-11.0)
[2020-10-26 13:24] LABS: ALB/GLOB Ratio 0.8 RATIO (0.9-2.4); AST(SGOT) 10 U/L (15-37); Alanine Aminotransfer ALT/SGPT 19 U/L (13-56); Albumin, Serum 3.3 g/dL (3.2-5.0); Alkaline Phosphatase 54 U/L (45-117); Anion Gap 7 (5-15); BUN 11 mg/dL (7-18); BUN/Creat Ratio 20.1 RATIO (10-20); Calcium,Total 8.8 mg/dL (8.5-10.1); Chloride 104 mmol/L (98-107); Creatinine, Serum 0.55 mg/dL (0.55-1.02); EST Glomerular Filtration Rate 137 mL/min (>60); Est Glom Filt Rate - Afr Amer 166 mL/min (>60); Glucose 80 mg/dL (74-106); Potassium 3.6 mmol/L (3.5-5.1); Protein, Total 7.3 g/dL (6.4-8.2); Sodium Level 136 mmol/L (136-145)
[2020-10-26 13:49] LABS: HIV - WCH Non-Reactive (Nonreactive); Hepatitis B Surface Antigen Non-Reactive (Nonreactive); Hepatitis C Antibody Non-Reactive (Nonreactive); Rubella IgG Reactive (Nonreactive)
== END ==
LOC: PAVLAB 11:57 → LAB 11:59
PROVIDERS: PCP Student in an Organized Health Care Education/Training Program; Referring Provider Obstetrics & Gynecology; Visit Provider Obstetrics & Gynecology
DX: O13.9 Gestational [pregnancy-induced] hypertension without significant proteinuria, unspecified trimester (principal); Z3A.00 Weeks of gestation of pregnancy not specified
CPT/HCPCS: 36415; 80053; 85025; 86703; 86762; 86803; 86850; 86900; 86901; 87340

== ENCOUNTER → 2020-11-19 | Outpatient (CLI) | payer SELFPAY ==
[2020-11-19 13:19] VITALS: BMI 33.0
== END | disposition home or self-care (01) ==
LOC: LABSPEC 16:33
PROVIDERS: PCP Student in an Organized Health Care Education/Training Program; Referring Provider Obstetrics & Gynecology; Visit Provider Obstetrics & Gynecology
DX: R30.0 Dysuria (principal)
CPT/HCPCS: 87086; 87088; 87186

== ENCOUNTER → 2020-12-16 | Outpatient (CLI) | payer SELFPAY ==
[2020-12-16 11:43] VITALS: BMI 34.2
== END | disposition home or self-care (01) ==
LOC: LABSPEC 12:55
PROVIDERS: PCP Student in an Organized Health Care Education/Training Program; Referring Provider Nurse Practitioner Women's Health; Visit Provider Nurse Practitioner Women's Health
DX: O23.40 Unspecified infection of urinary tract in pregnancy, unspecified trimester (principal); Z3A.00 Weeks of gestation of pregnancy not specified
CPT/HCPCS: 87086; 87088; 87186

== ENCOUNTER → 2020-12-21 13:16 | Outpatient (CLI) | payer SELFPAY ==
[2020-11-19 13:19] VITALS: BMI 33.0
[2020-12-21 11:49] VITALS: BMI 34.2
--- NOTE | 2020-12-21 13:18 | US_ITS ---
STUDY: SECOND AND THIRD TRIMESTER OBSTETRICAL ULTRASOUND REASON FOR EXAM: Female, 30 years old anatomy scan LMP: 08/09/2020. TECHNIQUE: Transabdominal and Transvaginal TECHNICAL QUALITY: Adequate. PRIOR ULTRASOUND: None. FINDINGS: There is a single intrauterine fetus. The fetus is in a breech presentation. There is demonstrated cardiac activity with a heart rate of 157 bpm. There is a normal amniotic fluid volume. The largest amniotic fluid pocket measures 4.7 x 4.3 cm. The amniotic fluid index (XAVI) is within normal limits. The placenta is anterior and low lying but not previa in location. There are Grade 0 placental changes. The cervix measures 4.6 cm in length. The bilateral adnexal regions are normal. BIOMETRY: BPD: 3.98 cm: 18 weeks, 0 days HC: 15.98 cm: 18 weeks, 5 days AC: 13.8 cm: 19 weeks, 1 days FL: 2.91 cm: 18 weeks, 6 days CI: 70% FL/BPD: 73% FL/HC: FL/AC: 21% HC/AC: 1.16 age by current US: 18 weeks, 5 days. KRYSTEN by current US: 05/19/2021. Estimated weight: 267 grams, +/- 40 grams, 35 %. Age by LMP: 19 weeks, 1 days. KRYSTEN by LMP: 05/16/2021. ANATOMY: Gender: Indeterminant Cranium: Normal lateral ventricles. Normal choroid plexus. Normal cerebellum. Normal cisterna magna. Normal face, nose and lips. Chest: Normal 4-chamber heart. Abdomen/Pelvis: Normal diaphragm. Normal stomach. Normal abdominal wall. Normal cord insertion. Normal 3 vessel cord. Normal kidneys. Normal bladder. Spine: Limited evaluation of the cervical, thoracic and lumbar spine. This is due to the position. Follow-up is recommended. Extremities: Normal bilateral upper extremities. Normal bilateral lower extremities. IMPRESSION: Single live intrauterine gestation with mean gestational age of 18 weeks and 5 days. Limited visualization of the spine as described. Follow-up is recommended. Anterior low-lying placenta. Electronically Signed: Jony Alexander MD at 15:18 EDT , Service support , STUDY: FIRST TRIMESTER OBSTETRICAL ULTRASOUND REASON FOR EXAM: Female, 30 years old anatomy scan LMP: 08/09/2020. TECHNIQUE: Transvaginal TECHNICAL QUALITY: Adequate. PRIOR ULTRASOUND: None. FINDINGS: Transvaginal examination for assessment of the placenta and cervical length. Cervical length is 4.6 cm. Anterior low-lying placenta. US/OB Anatomy Scan IMPRESSION: Anterior low-lying placenta. Cervical length measures 4.6 cm. Electronically Signed: Jony Alexander MD at 15:19 EDT , Service support ,
--- NOTE | 2020-12-21 13:18 | US_ITS ---
STUDY: SECOND AND THIRD TRIMESTER OBSTETRICAL ULTRASOUND REASON FOR EXAM: Female, 30 years old anatomy scan LMP: 08/09/2020. TECHNIQUE: Transabdominal and Transvaginal TECHNICAL QUALITY: Adequate. PRIOR ULTRASOUND: None. FINDINGS: There is a single intrauterine fetus. The fetus is in a breech presentation. There is demonstrated cardiac activity with a heart rate of 157 bpm. There is a normal amniotic fluid volume. The largest amniotic fluid pocket measures 4.7 x 4.3 cm. The amniotic fluid index (XAVI) is within normal limits. The placenta is anterior and low lying but not previa in location. There are Grade 0 placental changes. The cervix measures 4.6 cm in length. The bilateral adnexal regions are normal. BIOMETRY: BPD: 3.98 cm: 18 weeks, 0 days HC: 15.98 cm: 18 weeks, 5 days AC: 13.8 cm: 19 weeks, 1 days FL: 2.91 cm: 18 weeks, 6 days CI: 70% FL/BPD: 73% FL/HC: FL/AC: 21% HC/AC: 1.16 age by current US: 18 weeks, 5 days. KRYSTEN by current US: 05/19/2021. Estimated weight: 267 grams, +/- 40 grams, 35 %. Age by LMP: 19 weeks, 1 days. KRYSTEN by LMP: 05/16/2021. ANATOMY: Gender: Indeterminant Cranium: Normal lateral ventricles. Normal choroid plexus. Normal cerebellum. Normal cisterna magna. Normal face, nose and lips. Chest: Normal 4-chamber heart. Abdomen/Pelvis: Normal diaphragm. Normal stomach. Normal abdominal wall. Normal cord insertion. Normal 3 vessel cord. Normal kidneys. Normal bladder. Spine: Limited evaluation of the cervical, thoracic and lumbar spine. This is due to the position. Follow-up is recommended. Extremities: Normal bilateral upper extremities. Normal bilateral lower extremities. IMPRESSION: Single live intrauterine gestation with mean gestational age of 18 weeks and 5 days. Limited visualization of the spine as described. Follow-up is recommended. Anterior low-lying placenta. Electronically Signed: Jony Alexander MD at 15:18 EDT , Service support , STUDY: FIRST TRIMESTER OBSTETRICAL ULTRASOUND REASON FOR EXAM: Female, 30 years old anatomy scan LMP: 08/09/2020. TECHNIQUE: Transvaginal TECHNICAL QUALITY: Adequate. PRIOR ULTRASOUND: None. FINDINGS: Transvaginal examination for assessment of the placenta and cervical length. Cervical length is 4.6 cm. Anterior low-lying placenta. US/Transvaginal w/Preg US IMPRESSION: Anterior low-lying placenta. Cervical length measures 4.6 cm. Electronically Signed: Jony Alexander MD at 15:19 EDT , Service support ,
== END ==
PROVIDERS: PCP Student in an Organized Health Care Education/Training Program; Visit Provider Obstetrics & Gynecology
DX: O32.1XX0 Maternal care for breech presentation, not applicable or unspecified (principal); Z3A.18 18 weeks gestation of pregnancy
CPT/HCPCS: 76805; 76817

== ENCOUNTER → 2020-12-22 12:23 | Outpatient (CLI) | payer SELFPAY ==
[2020-12-22 11:33] VITALS: BMI 34.2
== END ==
LOC: LAB 12:25
PROVIDERS: PCP Student in an Organized Health Care Education/Training Program; Referring Provider Nurse Practitioner Women's Health; Visit Provider Nurse Practitioner Women's Health
DX: O46.90 Antepartum hemorrhage, unspecified, unspecified trimester (principal)
CPT/HCPCS: 36415; 86850; 86900; 86901

== ENCOUNTER → 2021-01-04 14:23 | Outpatient (CLI) | payer SELFPAY ==
[2020-12-21 11:49] VITALS: BMI 34.2
[2020-12-22 11:33] VITALS: BMI 34.2
--- NOTE | 2021-01-04 14:26 | US_ITS ---
STUDY: SECOND AND THIRD TRIMESTER OBSTETRICAL ULTRASOUND - LIMITED REASON FOR EXAM: Female, 30 years old complete spine views LMP: 08/09/2020 PRIOR ULTRASOUND: 12/21/2020 TECHNIQUE: Transabdominal TECHNICAL QUALITY: Adequate. FINDINGS: There is a single intrauterine fetus. The fetus is in a cephalic presentation. There is demonstrated cardiac activity with a heart rate of 119 bpm. There is a normal amniotic fluid volume. The largest amniotic fluid pocket measures cm. The amniotic fluid index (XAVI) is cm. The placenta is anterior and low lying but not previa in location. There are Grade 0 placental changes. The cervix measures 3.6 cm in length. Normal appearance to the spine. US/OB Limited (No Biometrics) IMPRESSION: 1. Living intrauterine as described above. 2. Anterior low-lying placenta. 3. Normal spine. Electronically Signed: Bao Gonzalez MD at 10:49 EDT Tel , Service support ,
== END ==
PROVIDERS: PCP Student in an Organized Health Care Education/Training Program; Referring Provider Obstetrics & Gynecology; Visit Provider Obstetrics & Gynecology
DX: Z34.80 Encounter for supervision of other normal pregnancy, unspecified trimester (principal)
CPT/HCPCS: 76815

== ENCOUNTER → 2021-02-11 | Outpatient (CLI) | payer SELFPAY ==
[2021-02-11 14:56] VITALS: BMI 34.2
== END | disposition home or self-care (01) ==
LOC: LABSPEC 16:54
PROVIDERS: PCP Student in an Organized Health Care Education/Training Program; Visit Provider Obstetrics & Gynecology
DX: O26.899 Other specified pregnancy related conditions, unspecified trimester (principal); R10.9 Unspecified abdominal pain; Z3A.00 Weeks of gestation of pregnancy not specified
CPT/HCPCS: 87070; 87205

== ENCOUNTER → 2021-02-15 07:54 | Outpatient (CLI) | payer SELFPAY ==
[2021-01-18 09:46] VITALS: BMI 34.2
[2021-02-11 14:56] VITALS: BMI 34.2
--- NOTE | 2021-02-15 07:57 | US_ITS ---
STUDY: SECOND AND THIRD TRIMESTER OBSTETRICAL ULTRASOUND - LIMITED REASON FOR EXAM: Female, 30 years old placenta follow-up LMP: 08/09/2020. PRIOR ULTRASOUND: Comparison is made with prior examination dated 01/04/2021. TECHNIQUE: Transabdominal TECHNICAL QUALITY: Adequate. FINDINGS: There is a single intrauterine fetus. The fetus is in a breech presentation. There is demonstrated cardiac activity with a heart rate of 152 bpm. There is a normal amniotic fluid volume. The largest amniotic fluid pocket measures 3.3 cm. The amniotic fluid index (XAVI) is within normal limits. The placenta is anterior in location and is not low lying. There are Grade 0 placental changes. The cervix measures 3.6 cm in length. US/OB Limited (No Biometrics) IMPRESSION: The placenta is anterior in location and is not low lying at this time. Electronically Signed: Jony Alexander MD at 13:05 EDT , Service support ,
[2021-02-15 10:02] LABS: Absolute Lymphocyte Count 1.08 X10^3/uL (0.83-4.51); Absolute Neutrophil Count 6.2 X10^3/uL (2.0-7.7); Basophil# 0.01 X10^3/uL; Basophil% 0.1 % (0-1); Eosinophil# 0.03 X10^3/uL; Eosinophils% 0.4 % (0-5); Hematocrit 36.1 % (37-47); Hemoglobin 11.8 g/dL (12.0-15.0); Lymphocyte # 1.08 X10^3/ul (0.83-4.51); Lymphocyte % 14.1 % (19-41); Mean Corp Hgb Conc 32.7 g/dL (32-36); Mean Corpuscular Hgb 29.9 pg (27.0-32.0); Mean Corpuscular Volume 91.4 fL (81-99); Mean Platelet Vol. 10.3 fl (6.2-12.0); Monocyte# 0.36 X10^3/uL; Monocyte% 4.7 % (0-10); NRBC Flagged by Analyzer 0 % (0-5); Neutrophil # 6.15 X10^3/uL (2.7-7.7); Neutrophil % 80.4 % (47-70); Platelet Count 199 K/mm3 (150-450); RBC Distribution Width CV 12.3 % (11.6-14.6); Red Blood Count 3.95 M/mm3 (4.2-5.4); White Blood Count 7.7 K/mm3 (4.4-11.0)
[2021-02-15 10:10] LABS: Glucose Challenge Gest 1H 50g 92 mg/dL (70-140)
== END ==
PROVIDERS: Nurse Practitioner Women's Health; PCP Student in an Organized Health Care Education/Training Program; Referring Provider Obstetrics & Gynecology; Visit Provider Obstetrics & Gynecology
DX: Z13.1 Encounter for screening for diabetes mellitus (principal); O44.42 Low lying placenta NOS or without hemorrhage, second trimester; Z3A.23 23 weeks gestation of pregnancy
CPT/HCPCS: 76815; 82950; 85025

== ENCOUNTER → 2021-03-18 10:39 | Outpatient (CLI) | payer SELFPAY ==
[2021-03-18 11:27] LABS: Syphilis Antibodies Non-reactive
== END ==
LOC: PAVLAB 10:40
PROVIDERS: Obstetrics & Gynecology; PCP Student in an Organized Health Care Education/Training Program; Referring Provider Obstetrics & Gynecology; Visit Provider Obstetrics & Gynecology
DX: O36.0190 Maternal care for anti-D [Rh] antibodies, unspecified trimester, not applicable or unspecified (principal); Z3A.00 Weeks of gestation of pregnancy not specified
CPT/HCPCS: 36415; 86780; 86850; 86900; 86901

== ENCOUNTER → 2021-04-14 11:08 | Outpatient (CLI) | payer SELFPAY ==
[2021-04-14 11:22] LABS: ROM Internal Control Test YES-OK TO RESULT pt. (Internal QC)
[2021-04-14 11:27] LABS: Absolute Lymphocyte Count 1.27 X10^3/uL (0.83-4.51); Basophil# 0.01 X10^3/uL; Basophil% 0.1 % (0-1); Eosinophil# 0.02 X10^3/uL; Eosinophils% 0.2 % (0-5); Lymphocyte # 1.27 X10^3/ul (0.83-4.51); Lymphocyte % 14.1 % (19-41); Mean Corp Hgb Conc 33.3 g/dL (32-36); Mean Corpuscular Hgb 30.4 pg (27.0-32.0); Mean Corpuscular Volume 91.1 fL (81-99); Mean Platelet Vol. 10.4 fl (6.2-12.0); Monocyte# 0.56 X10^3/uL; Monocyte% 6.2 % (0-10); NRBC Flagged by Analyzer 0 % (0-5); Neutrophil # 7.02 X10^3/uL (2.7-7.7); Platelet Count 219 K/mm3 (150-450); RBC Distribution Width CV 12.5 % (11.6-14.6); RBC Distribution Width SD 41.2 fl (35.1-43.9); Red Blood Count 3.95 M/mm3 (4.2-5.4)
[2021-04-14 11:37] LABS: ALB/GLOB Ratio 0.6 RATIO (0.9-2.4); AST(SGOT) 11 U/L (15-37); Alanine Aminotransfer ALT/SGPT 12 U/L (13-56); Albumin, Serum 2.6 g/dL (3.2-5.0); Alkaline Phosphatase 93 U/L (45-117); Anion Gap 6 (5-15); BUN 11 mg/dL (7-18); BUN/Creat Ratio 17.3 RATIO (10-20); Calcium,Total 8.6 mg/dL (8.5-10.1); Chloride 107 mmol/L (98-107); Creatinine, Serum 0.64 mg/dL (0.55-1.02); EST Glomerular Filtration Rate 116 mL/min (>60); Est Glom Filt Rate - Afr Amer 140 mL/min (>60); Globulin 4.6 g/dL (2.2-4.2); Glucose 81 mg/dL (74-106); Potassium 3.7 mmol/L (3.5-5.1); Protein, Total 7.2 g/dL (6.4-8.2); Sodium Level 137 mmol/L (136-145)
[2021-04-14 11:37] LABS: ROM Patient Test Negative (Negative)
[2021-04-14 11:38] LABS: Protein, Urine (Random) 76.5 mg/dL (<11.9); Protein:Creat Ratio 500 mg/g CRE (0-200)
== END ==
PROVIDERS: PCP Student in an Organized Health Care Education/Training Program; Referring Provider Obstetrics & Gynecology; Visit Provider Obstetrics & Gynecology
DX: O26.892 Other specified pregnancy related conditions, second trimester (principal); N89.8 Other specified noninflammatory disorders of vagina; R10.2 Pelvic and perineal pain; O13.2 Gestational [pregnancy-induced] hypertension without significant proteinuria, second trimester; Z3A.00 Weeks of gestation of pregnancy not specified
CPT/HCPCS: 36415; 80053; 82570; 84112; 84156; 85025; 87077; 87086; 87088; 87186

== ENCOUNTER 2021-04-16 17:54 | Outpatient (CLI) | payer SELFPAY ==
[2021-04-16 17:58] VITALS: BMI 38.3
[2021-04-16 18:18] VITALS: BP 127/71; PULSE 88; TEMP 36.5
[2021-04-16 18:41] VITALS: BP 126/70; PULSE 82
[2021-04-16 18:56] VITALS: BP 125/71; PULSE 83
[2021-04-16] MEDS: Acetaminophen 500 MG Tablet 1000 MG PO (19:09)
[2021-04-16 19:33] VITALS: BP 129/73; PULSE 80; TEMP 36.6; O2SAT 99
--- NOTE | 2021-04-21 07:56 | OB.TRI.PN ---
Progress Notes Date of Service: 04/16/21 Progress Note: Patient presents for triage evaluation secondary to cramping and diarrhea. Cervix unchanged from prior exam. Not alesia on monitor. Reported headache- BPs normal. FHT: Moderate variability reactive no decelerations category I tracing [place]: Irregular Contractions Assessment and plan: Reactive NST, reassuring maternal and status patient discharged to home to follow-up at next scheduled visit. See problem list details for additional plan information. Charges/Coding Procedures Urinary/Genital 52xxx-59xxx: 05411-21 non-stress test Interp
== END 2021-04-16 20:30 | disposition home or self-care (01) ==
LOC: WPOUT 17:57 → WP 17:57
PROVIDERS: PCP Student in an Organized Health Care Education/Training Program; Referring Provider Obstetrics & Gynecology; Visit Provider Obstetrics & Gynecology
DX: O62.9 Abnormality of forces of labor, unspecified (principal); O26.891 Other specified pregnancy related conditions, first trimester; R10.9 Unspecified abdominal pain; O99.891 Other specified diseases and conditions complicating pregnancy; R19.7 Diarrhea, unspecified; R51.9 Headache, unspecified; Z3A.00 Weeks of gestation of pregnancy not specified
CPT/HCPCS: 59025; 59050; 99218; G0378

== ENCOUNTER → 2021-04-22 | Outpatient (CLI) | payer SELFPAY | END | disposition home or self-care (01) | PROVIDERS: PCP Student in an Organized Health Care Education/Training Program; Referring Provider Obstetrics & Gynecology; Visit Provider Obstetrics & Gynecology | DX: Z34.80 Encounter for supervision of other normal pregnancy, unspecified trimester (principal) | CPT/HCPCS: 87081 ==

== ENCOUNTER 2021-04-27 22:05 | Outpatient (CLI) | payer SELFPAY ==
[2021-04-27 22:15] VITALS: PULSE 98; O2SAT 98
[2021-04-27 22:20] VITALS: BP 135/67; PULSE 90; TEMP 36.9
[2021-04-27 22:30] VITALS: BMI 38.0
[2021-04-27 22:58] LABS: Color, Urine Yellow (Yellow); Glucose, Dipstick Normal (Normal); Ketone-Dipstick Negative (Negative); Leukocyte Esterase-Dipstick 500 /ul (Negative); Nitrite-Dipstick Positive (Negative); Occult Blood-Urine 150 /ul (Negative); Protein-Dipstick 30 mg/dl (Negative); Urine Bilirubin Dipstick Negative (Negative); Urine Clarity Cloudy (Clear); Urine Urobilinogen Normal (Normal)
[2021-04-28] MEDS: Nitrofurantoin Macrocrystals 100 MG Capsule PO (00:01)
--- NOTE | 2021-05-02 21:02 | OB.TRI.PN ---
Progress Notes Date of Service: 04/27/21 Progress Note: Patient presents for triage evaluation secondary to labor FHT: 130 Moderate variability reactive no decelerations category I tracing [place]: irregular Contractions Assessment and plan: false labor Reactive NST, reassuring maternal and status patient discharged to home to follow-up as scheduled. See problem list details for additional plan information. Laboratory Studies: Laboratory Tests 04/27/21 Range/Units 22:40 Urine Color Yellow (Yellow) Urine Clarity Cloudy (Clear) Urine pH 6.0 (5.0 - 8.0) Ur Specific [place] 1.020 (1.002-1.030) Urine Protein 30 H (Negative) mg/dl Urine Glucose (UA) Normal (Normal) mg/dl Urine Ketones Negative (Negative) mg/dl Urine Occult Blood 150 H (Negative) /ul Urine Nitrite Positive H (Negative) Urine Bilirubin Negative (Negative) mg/dL Urine Urobilinogen Normal (Normal) mg/dl Ur Leukocyte Esterase 500 H (Negative) /ul Charges/Coding Procedures Urinary/Genital 52xxx-59xxx: 73868-24 non-stress test Interp
== END 2021-04-28 00:25 | disposition home or self-care (01) ==
LOC: WPOUT 22:09 → WP 22:09
PROVIDERS: PCP Student in an Organized Health Care Education/Training Program; Visit Provider Obstetrics & Gynecology
DX: O47.9 False labor, unspecified (principal); Z3A.00 Weeks of gestation of pregnancy not specified
CPT/HCPCS: 59025; 59050; 81002; 99218; G0378

== ENCOUNTER → 2021-04-30 | Outpatient (CLI) | payer SELFPAY ==
[2021-04-30 12:54] LABS: Protein, Urine (Random) 91.1 mg/dL (<11.9); Protein:Creat Ratio 1251 mg/g CRE (0-200)
== END | disposition home or self-care (01) ==
LOC: LABSPEC 12:13
PROVIDERS: PCP Student in an Organized Health Care Education/Training Program; Referring Provider Obstetrics & Gynecology; Visit Provider Obstetrics & Gynecology
DX: O12.10 Gestational proteinuria, unspecified trimester (principal); Z3A.00 Weeks of gestation of pregnancy not specified
CPT/HCPCS: 82570; 84156

== ENCOUNTER 2021-05-07 00:25 | Inpatient (IN) | payer SELFPAY ==
[2021-05-06 22:56] VITALS: BP 131/80; PULSE 83; PULSE 85; TEMP 36.6; O2SAT 96
[2021-05-06 23:02] VITALS: BMI 39.2
[2021-05-06 23:35] LABS: Mucous, Urine 0 SEEN /hpf (<or=2+)
[2021-05-06 23:37] LABS: Absolute Lymphocyte Count 1.64 X10^3/uL (0.83-4.51); Absolute Neutrophil Count 9.3 X10^3/uL (2.0-7.7); Basophil# 0.02 X10^3/uL; Basophil% 0.2 % (0-1); Eosinophil# 0.03 X10^3/uL; Eosinophils% 0.3 % (0-5); Hematocrit 36.1 % (37-47); Hemoglobin 12.1 g/dL (12.0-15.0); Lymphocyte # 1.64 X10^3/ul (0.83-4.51); Lymphocyte % 13.9 % (19-41); Mean Corp Hgb Conc 33.5 g/dL (32-36); Mean Corpuscular Hgb 30.4 pg (27.0-32.0); Mean Corpuscular Volume 90.7 fL (81-99); Mean Platelet Vol. 10.4 fl (6.2-12.0); Monocyte# 0.73 X10^3/uL; Monocyte% 6.2 % (0-10); NRBC Flagged by Analyzer 0 % (0-5); Neutrophil # 9.28 X10^3/uL (2.7-7.7); Neutrophil % 78.7 % (47-70); Platelet Count 211 K/mm3 (150-450); RBC Distribution Width CV 12.9 % (11.6-14.6); RBC Distribution Width SD 42.5 fl (35.1-43.9); Red Blood Count 3.98 M/mm3 (4.2-5.4); White Blood Count 11.8 K/mm3 (4.4-11.0)
[2021-05-06 23:39] LABS: Color, Urine Yellow (Yellow); Glucose, Dipstick Normal (Normal); Ketone-Dipstick Negative (Negative); Leukocyte Esterase-Dipstick 500 /ul (Negative); Nitrite-Dipstick Positive (Negative); Occult Blood-Urine 250 /ul (Negative); Protein-Dipstick 100 mg/dl (Negative); Specific Gravity, Urine 1.015 (1.002-1.030); Urine Bilirubin Dipstick Negative (Negative); Urine Clarity Turbid (Clear); Urine Urobilinogen Normal (Normal)
[2021-05-06 23:47] LABS: Bacteria 4+ /hpf (None Seen); Red Blood Cells-Urine 25-50 SEEN /hpf (0-5); White Blood Cells >100 SEEN /hpf (0-5)
[2021-05-06 23:48] LABS: Squamous Epithelial Cells - UA 0-5 SEEN /hpf (5-10)
[2021-05-07] VITALS (42 sets, daily range): BP systolic 115–132; BP diastolic 60–73; PULSE 68–115; RESP 16; TEMP 36.1–36.6; O2SAT 86–100
[2021-05-07 00:22] LABS: ROM Internal Control Test YES-OK TO RESULT pt. (Internal QC); ROM Patient Test Negative (Negative)
--- NOTE | 2021-05-07 01:18 | NURSING ---
patient refuses covid test
[2021-05-07] MEDS: Oxytocin 30 units/NS 500 ml 30 UNITS/500 ML IV.SOLN 334 UNITS IV (03:22)
--- NOTE | 2021-05-07 04:04 | HP.PCM.OB_ITS ---
HPI - General General Date of Admission: 05/07/21 HPI Narrative ULISES GARCIA, is a 30 F who presents in active labor 4 to 5 cm dilated regular contractions no bleeding or loss of fluid admits good movement Maternal Data Information KRYSTEN Calculator Estimated Delivery Date Method Current WG Current Estimate 05/16/21 LMP (Certain) 38w 5d Other Estimates 05/17/21 Ultrasound #1 38w 4d PFSH PFSH Medical History (Updated 05/07/21 @ 04:[address] Milagros Tim MD) Anxiety Anxiety Home Medications prenat.vits,jose alberto,[id number]-[id number] 1 tab PO QDAY 10/10/17 [History Last Taken 05/06/21] miscellaneous medical supply #1 ea 04/14/21 [Rx Last Taken Unknown] cephalexin 500 mg PO BID 04/16/21 [History Last Taken 04/16/21 10:00] nitrofurantoin monohydrate/macrocrystals 100 mg capsule 100 mg PO BID #14 cap 04/20/21 [Rx Last Taken Unknown] citalopram 20 mg PO DAILY 05/06/21 [History Last Taken 05/06/21] Allergy/AdvReac Type Severity Reaction Status Date / Time latex Allergy Swelling Verified 05/06/21 23:00 oxycodone Allergy Itching Verified 05/06/21 23:00 Family History Unknown Colon cancer Surgical History H/O lithotripsy History of cholecystectomy S/P ACL repair Social History adopted: No household members: family housing: house number of children: 3 current occupational status: employed Smoking Status: Never smoker second hand exposure: No alcohol intake: never substance use type: does not use caffeine: Yes what type of physical activity do you participate in: none seatbelt use: always do you feel safe at home: Yes additional social history: Lucas- Self Employed Patient works for [employer] History 5 Elective abortions Hx Para 3 Spontaneous abortions 1 Hx # Term Pregnancies 3 Ectopic pregnancies Hx # Pregnancies Multiple births # of living children 3 Past Pregnancies Del. Date Name GA/Weeks Outcome Route Bth Weight Infant Gen Labor Lgth Anesthesia Del Locatn Provider FOB Unknown 2008 Aleks 38 live - full term 6lbs 15 oz Male 11 hours epidural [facility] AT 02/07/16 Felton 38 live - full term 7LBS 4OZ Male 3 ho urs epidural [facility] RR Lucas 05/27/18 Bowen 38 live - full term 7lbs 4oz Female 6 hours epidural [facility] SM Lucas Delivery Date: No notes to display Delivery Date: 02/07/16 Laceration: 2nd degree - perineal; lightly stained mecium Mary Ribera Delivery Date: 05/27/18 IOL decels, mild uterine atony was encountered but with bimanual massage and emptying the bladder bleeding was WNL nuchal cord x2 loose Mary Ribera Visit Details Expected Delivery Route/Plan Labor Preferences- CB/BF classes: no labor support person: Lucas labor intervention preferences: [] pain management options preferred: epidural cut cord/dad catch: yes : yes PP control planned: BS discussed possible routes of delivery and associated risks: [] special requests: [] Plans covid status: non immune counseled regarding risk of covid in vs vaccination and declined vaccination flu vaccine: no tdap vaccine: declines rhogam: due 03/16 LARC form signed: yes Problem list reviewed and updated with the most current plan of care details and appropriate orders placed. Relevant counseling for the gestational age provided. Continue routine care and follow up unless otherwise noted in visit notes/problem list details OB Flowsheet Initial Weight: 176 lb Date -?-?-?-?-?-?-?-?-?-?-?-?- EGA Weight BP Urine Prot -?-?-?-?-?-?-?-?-?-?-?-?- Glucose FHR FuHt Pres Dilation -?-?-?-?-?-?-?-?-?-?-?-?- Effaced St Visit Note 10/01/20 -?-?-?-?-?-?-?-?-?-?-?-?- 7w 4d 176 lb (+0 oz) 130/88 -?-?-?-?-?-?-?-?-?-?-?-?- 145 -?-?-?-?-?-?-?-?-?-?-?-?- GP - CRL 12mm co nsistent with LMP. 10/15/20 -?-?-?-?-?-?-?-?-?-?-?-?- 9w 4d 176 lb (+0 oz) -?-?-?-?-?-?-?-?-?-?-?-?- 145 -?-?-?-?-?-?-?-?-?-?-?-?- SM- patient here for severe nuasea, some emesis, and severe mood symptoms no SI HI but anhedonia, low energ, fatigue, trouble sleeping, lability. start celexa and meclizine, counseling. if no improvement recommend effexor 10/26/20 -?-?-?-?-?-?-?-?-?-?-?-?- 11w 1d 178 lb (+2 lb) 102/80 Negative -?-?-?-?-?-?-?-?-?-?-?-?- Negative 155 -?-?-?-?-?-?-?-?-?-?-?-?- SM- nausea impro ving. mood stabilizing. no emesis x 1 week SM- nausea improving. mood stabilizing. no emesis x 1 week. still needs NOB labs drawn 11/19/20 -?-?-?-?-?-?-?-?-?-?-?-?- 14w 4d 181 lb (+5 lb) 124/88 Negative -?-?-?-?-?-?-?-?-?-?-?-?- Negative 150 -?-?-?-?-?-?-?-?-?-?-?-?- SM- having some dysuria- pos on dip. no vb cramping 12/16/20 -?-?-?-?-?-?-?-?-?-?-?-?- 18w 3d 184 lb 8 oz (+8 lb 8 oz) 110/70 110/70 Negative -?-?-?-?-?-?-?-?-?-?-?-?- Negative 138 -?-?-?-?-?-?-?-?-?-?-?-?- -c/o vaginal i tching with DC. Used OTC monistat 2 wk ago. Exam confirms erythema, caseous dc. Rx terazole sent. 12/21/20 -?-?-?-?-?-?-?-?-?-?-?-?- 19w 1d 184 lb (+8 lb) 104/80 Negative -?-?-?-?-?-?-?-?-?-?-?-?- Negative 154 -?-?-?-?-?-?-?-?-?-?-?-?- -No Vb, LOF. F eeling well now. Anatomy US today. No VB. LOF 12/22/20 -?-?-?-?-?-?-?-?-?-?-?-?- 19w 2d 184 lb (+8 lb) 122/76 -?-?-?-?-?-?-?-?-?-?-?-?- 140 0 -?-?-?-?-?-?-?-?-?-?-?-?- -work in for p in spotting last pm. Did have TV US yesterday/low lying placenta. Cervix closed. No blood in vaginal vault. 01/18/21 -?-?-?-?-?-?-?-?-?-?-?-?- 23w 1d 192 lb (+16 lb) 124/72 Negative -?-?-?-?-?-?-?-?-?-?-?-?- Negative 145 23 -?-?-?-?-?-?-?-?-?-?-?-?- GP - no LOF, VB, DFM, ctx. Feeling movement but less than last due to anterior placenta. Reassurance provided. 02/11/21 -?-?-?-?-?-?-?-?-?-?-?-?- 26w 4d 111/70 -?-?-?-?-?-?-?-?-?-?-?-?- 140 26 0 -?-?-?-?-?-?-?-?-?-?-?-?- GP - no LOF, VB, DFM. Having increased pelvic pressure and slight increased discharge. Culture collected. 02/15/21 -?-?-?-?-?-?-?-?-?-?-?-?- 27w 1d 198 lb 2 oz (+22 lb 2 oz) 140/82 120/66 Negative -?-?-?-?-?-?-?-?-?--?-?-?- Negative 149 28 -?-?-?-?-?-?-?-?-?-?-?-?- MH-No VB, LOF. G ood FM. US today pending but told low placenta resolved. Breech. 28 wk labs. Larc. Declines tdap. Rhogan due 03/1603/03/21 -?-?-?-?-?-?-?-?-?-?-?-?- 29w 3d 204 lb (+28 lb) 142/80 122/80 Negative -?-?-?-?-?-?-?-?-?-?-?-?- Negative 145 29 -?-?-?-?-?-?-?-?-?-?-?-?- GP - no LOF, VB, DFM, ctx. Denies complaints. 03/18/21 -?-?-?-?-?-?-?-?-?-?-?-?- 31w 4d 205 lb (+29 lb) 102/74 -?-?-?-?-?-?-?-?-?-?-?-?- 145 32 0.5 -?-?-?-?-?-?-?-?-?-?-?-?- SM- no vb lof go od fm no reuglar ctx 03/29/21 -?-?-?-?-?-?-?-?-?-?-?-?- 33w 1d 205 lb 2 oz (+29 lb 2 oz) 138/80 Trace -?-?-?-?-?-?-?-?-?-?-?-?- Negative 155 33 Cephalic 0 .5 -?-?-?-?-?-?-?-?-?-?-?-?- GP - no LOF, VB, DFM, regular ctx. Having significant pressure that wraps around to back. Reassurance provided. Discussed supportive measures. 04/14/21 -?-?-?-?-?-?-?-?-?-?-?-?- 35w 3d 209 lb 2 oz (+33 lb 2 oz) 128/80 1+ -?-?-?-?-?-?-?-?-?-?-?-?- Negative 140 35 Cephalic 0 .5 -?-?-?-?-?-?-?-?-?-?-?-?- 40 -3 GP - no VB , DFM, ctx. Poossible LOF - ROM sent. Having UTI sx with proteinuria - PreE labs ordered, urine culture collected. 04/22/21 -?-?-?-?-?-?-?-?-?-?-?-?- 36w 4d 118/80 -?-?-?-?-?-?-?-?-?-?-?-?- 140 37 Cephalic 1 -?-?-?-?-?-?-?-?-?-?-?-?- 40 SM- no v b lof good fm no regular ctx 04/30/21 -?-?-?-?-?-?-?-?-?-?-?-?- 37w 5d 213 lb 4 oz (+37 lb 4 oz) 130/78 2+ -?-?-?-?-?-?-?-?-?-?-?-?- Negative 140 38 Cephalic 1 -?-?-?-?-?-?-?-?-?-?-?-?- SM- on macrobid for uti. repeat urine culture next week no vb lof good fm no reugla rctx 05/07/21 -?-?-?-?-?-?-?-?-?-?--?-?- 38w 5d 208 lb (+32 lb) 131/80 129/71 127/69 129/71 130/62 132/60 121/61 100 mg/dl (Negative) H -?-?-?-?-?-?-?-?-?-?-?-?- -?-?-?-?-?-?-?-?-?-?-?-?- NST FHR Rate Baby A Baseline: 140 Variability:: Moderate Accelerations:: 15 x 15 Decelerations:: None NST Reactive:: Yes FHR Category:: Category I Uterine Activity:: q3-5 ROS Constitutional Constitutional: Reports systems reviewed and no addt'l complaints, except as documented ENT HEENT: Reports systems reviewed and no addt'l complaints, except as documented Cardiovascular Cardiovascular: Reports systems reviewed and no addt'l complaints, except as documented Respiratory/Chest Respiratory/Chest: Reports systems reviewed and no addt'l complaints, except as documented Gastrointestinal Gastrointestinal: Reports systems reviewed and no addt'l complaints, except as documented and nausea; Denies abdominal pain Genitourinary Genitourinary: Reports systems reviewed and no addt'l complaints, except as documented, contractions Details: present and frequency (regular ) and movement Details: present Musculoskeletal Musculoskeletal: Reports systems reviewed and no addt'l complaints, except as documented Integumentary Integumentary: Reports as per HPI Neurologic Neurologic: Reports systems reviewed and no addt'l complaints, except as documented Endocrine Endocrinology: Reports systems reviewed and no addt'l complaints, except as documented Vital Signs Vital Signs Vital Signs: 05/06/21 22:51 05/06/21 22:56 05/07/21 00:17 Temperature 97.9 F Temperature Source Temporal Pulse Rate 85 86 Blood Pressure 131/80 H 129/71 H BP Systolic 131 129 BP Diastolic 80 71 Pulse Ox 96 99 05/07/21 01:44 05/07/21 01:48 05/07/21 01:49 Temperature 97.5 F L Temperature Source Temporal Pulse Rate 92 90 Blood Pressure 127/69 H BP Systolic 127 BP Diastolic 69 Pulse Ox 97 05/07/21 01:52 05/07/21 02:22 05/07/21 02:55 Temperature 97.0 F L Temperature Source Temporal Pulse Rate 110 H 115 H Blood Pressure BP Systolic BP Diastolic Pulse Ox 98 98 05/07/21 02:56 05/07/21 03:29 05/07/21 03:34 Temperature Temperature Source Pulse Rate 85 83 78 Blood Pressure 129/71 H 130/62 H BP Systolic 129 130 BP Diastolic 71 62 Pulse Ox 96 99 05/07/21 03:39 05/07/21 03:44 05/07/21 03:49 Temperature Temperature Source Pulse Rate 75 74 75 Blood Pressure 132/60 H BP Systolic 132 BP Diastolic 60 Pulse Ox 97 98 100 05/07/21 03:54 05/07/21 03:59 Temperature Temperature Source Pulse Rate 78 77 Blood Pressure 121/61 H BP Systolic 121 BP Diastolic 61 Pulse Ox 100 100 Weight Weight: 208 lb Body Mass Index (BMI) 39.2 Physical Exam Const alert, oriented x3 and healthy appearing Constitutional Narrative: uncomfortable with contractions HEENT normocephalic and moist oral mucous membranes Head and Scalp: atraumatic Neck full ROM, no lymphadenopathy, supple and thyroid normal General: trachea midline Thyroid: thyroid normal Lymph Lymphatic: no lymphadenopathy noted Chest inspection of chest normal Resp normal respiratory effort Cardio regular rate GI normal to inspection, nondistended, normoactive bowel sounds, soft to palpation and non-tender Inspection: gravid external exam normal Bimanual Exam - Vag & Uterus: uterus non-tender Manual OB Exam: estimated gestational size appropriate, presentation cephalic, dilated, effaced and station Extremity normal to inspection General Extremity: Negative for edema Skin no rashes or lesions noted Neuro deep tendon reflexes 2+ bilaterally Motor Exam: strength 5/5 throughout and clonus absent Psych mental status grossly normal Labs Labs Labs: Blood Type A NEGATIVE Antibody Screen NEGATIVE Hct 36.1 % (37-47) L Hgb 12.1 g/dL (12.0-15.0) Obstetrics US Syphilis Total Ab Non-reactive Rubella IgG Antibody Reactive (Nonreactive) Hep Bs Antigen Non-Reactive (Nonreactive) Neisseria gonorrhoeae DNA (STANISLAW) Negative (Negative) HIV 1&2 Antibody Non-Reactive (Nonreactive) C.trachomatis DNA (PCR) Negative (Negative) Glucose 1 Hr 50 gm 92 mg/dL (70-140) Group B Strep DNA Negative (Negative) Rhogam given: Yes Assessment & Plan (1) Recurrent urinary tract infection affecting : COMMENT: x2. recommend daily keflex. Repeat culture on 05/07 (2) Anxiety and depression: COMMENT: celexa, counseling referral. 8/9 stble (3) HPV test positive: COMMENT: needs pap PP (4) Gestational hypertension: QUALIFIERS: Trimester: second trimester Qualified Code(s): O13.2 - Gestational [-induced] hypertension without significant proteinuria, second trimester COMMENT: in prior . Pre-e labs on 05/07 (5) Supervision of other normal : COMMENT: PRR KRYSTEN: 05/16/21 PC: Kwadwo Fink Kaisley Spouse: Lucas (6) Rh negative status during : QUALIFIERS: Trimester: first trimester Qualified Code(s): O26.891 - Other specified related conditions, first trimester; Z67.91 - Unspecified blood type, Rh negative COMMENT: rhogam 03/18 (7) : QUALIFIERS: Weeks of gestation: 36 weeks Qualified Code(s): Z3A.36 - 36 weeks gestation of COMMENT: declines genetic and carrier, ntd screening. Anatomy US normal; GBS NEG (8) Active labor at term: PLAN: arom clear fluid exp management
--- NOTE | 2021-05-07 04:06 | OP.PCM_ITS ---
Assessment & Plan (1) Active labor at term: (2) Vaginal delivery: COMMENT: 38 SM IAL girl Serv[place] (3) : QUALIFIERS: Weeks of gestation: 36 weeks Qualified Code(s): Z3A.36 - 36 weeks gestation of COMMENT: declines genetic and carrier, ntd screening. Anatomy US normal; GBS NEG (4) Rh negative status during : QUALIFIERS: Trimester: first trimester Qualified Code(s): O26.891 - Other specified related conditions, first trimester; Z67.91 - Unspecified blood type, Rh negative COMMENT: rhogam 03/18 (5) Supervision of other normal : COMMENT: PRR KRYSTEN: 05/16/21 PC: Kwadwo Fink Kaisley Spouse: Lucas (6) Gestational hypertension: QUALIFIERS: Trimester: second trimester Qualified Code(s): O13.2 - Gestational [-induced] hypertension without significant proteinuria, second trimester COMMENT: in prior . Pre-e labs on 05/07 (7) HPV test positive: COMMENT: needs pap PP (8) Anxiety and depression: COMMENT: celexa, counseling referral. 02/15 stble (9) Recurrent urinary tract infection affecting : COMMENT: x2. recommend daily keflex. Repeat culture on 05/07 Maternal Data Information KRYSTEN Calculator Estimated Delivery Date Method Current WG Current Estimate 05/16/21 LMP (Certain) 38w 5d Other Estimates 05/17/21 Ultrasound #1 38w 4d Vaginal Delivery Operative Information Pre-Operative Diagnosis: IAL Post-Operative Diagnosis: same Surgery / Procedure Performed: Spontaneous Vaginal Delivery Type of Anesthesia: Epidural Special Medications: none Estimated Blood Loss: 100 Fluids Replaced: crystalloid Findings Description of Procedure: Patient began pushing and delivered the head in the [L OA] presentation. The head was delivered atraumatically . The anterior and posterior shoulders delivered without complication followed by the rest of the infant and the was placed on the maternal abdomen. Delayed cord clamping was employed for approximately 60 seconds. Cord was clamped and cut and gentle traction was applied to the cord and the placenta delivered spontaneously immediately following it was noted to be intact with three-vessel cord. The perineum and vagina were inspected and [noted to have no laceration]. EBL was [100 cc]. Patient and tolerated delivery well. Presentation: MALATHI Amniotic Membrane Rupture Type: Artificial Amniotic Fluid Description: Clear Placental Delivery Description: Spontaneous Placenta Disposition: [facility] Cord Vessel Description: 3 Vessels Cord Entanglement: None Infant A Gender: Female Delayed Cord Clamping: Yes Post Vaginal Delivery Medications Given After Delivery: IV Pitocin Episiotomy Description: None Laceration: None Complication Complications: None Procedures Urinary/Genital 52xxx-59xxx: [id number] Vaginal Delivery [facility]
--- NOTE | 2021-05-07 04:12 | PCM.DC ---
Discharge Instructions Diet Discharge Diet: No restrictions Activity Discharge Activity: Return to Normal Activity, May Not Drive (while taking narcotic pain medications.) and May Shower May resume sexual activity in: 4-6 weeks Dressing / Incision Call your doctor if your incision/area has: Continuous Slow Oozing, Sudden Increased Bleeding, Increased Pain/ Swelling, Increased Redness and Foul Smelling Discharge Follow Up Care Please Follow Up With: Milagros Tim MD When: Call [phone] to make an appointment with your doctor in 6 weeks. If you had elevated blood pressure or 4th degree laceration, you will need to be seen in 2 weeks. Test Results: Test results from this visit will be discussed in further detail at your follow-up appointment, if applicable. Discharge Plan Admission Admit Date/Time: 05/07/21 00:25 Attending Provider: Milagros Tim Primary Care Provider: Robert Celeste Discharge Orders/Prescriptions Prescriptions: No Action prenat.vits,jose alberto,[id number] [ Vitamin] tablet 1 tab PO QDAY RF: 0 (DME) Blood Pressure Cuff Misc See Rx Instructions .ROUTE .MEDSUPPLY Qty: 1 RF: 0 cephalexin 500 mg capsule 500 mg PO BID RF: 0 citalopram 20 mg tablet 20 mg PO DAILY RF: 0 nitrofurantoin monohyd/m-cryst [Macrobid] 100 mg capsule 100 mg PO BID Qty: 14 RF: 0
[2021-05-07] MEDS: Acetaminophen 500 MG Tablet 1000 MG PO ×2 (04:38→10:51)
[2021-05-07] MEDS: Citalopram 20 MG Tablet PO (22:34)
[2021-05-07] MEDS: Cephalexin 500 MG Capsule PO (22:34)
[2021-05-08] VITALS (9 sets, daily range): BP systolic 111–132; BP diastolic 64–72; PULSE 70–86; RESP 14–18; TEMP 35.9–36.2; O2SAT 97–99
[2021-05-08] MEDS: Cephalexin 500 MG Capsule PO (08:01)
[2021-05-08] MEDS: Naproxen 500 MG Tablet PO (08:01)
--- NOTE | 2021-05-08 08:47 | PN.OBGYN_ITS ---
Subjective Subjective Patient doing well without complaints. Tolerating PO. Ambulating and voiding without difficulty. feeding well. Denies chest pain, shortness of breath, calf pain/swelling, fevers, chills, lightheadedness. Objective Data Objective Data Vital Signs: Vital Signs Temp Pulse Resp BP Pulse Ox 96.6 F L 81 14 124/69 H 97 05/08/21 07:56 05/08/21 07:56 05/08/21 07:40 05/08/21 07:56 05/08/21 07:40 Oxygen Delivery Method Room Air Weight: 208 lb Body Mass Index (BMI) 39.2 Intake & Output: Intake and Output for Last 24 Hours 05/06/21 05/07/21 05/08/21 23:59 23:59 23:59 Intake Total 500 / 500 Output Total 400 / 400 Balance 100 / 100 Lab / Micro Data Result Diagrams: 05/06/21 23:20 Micro: Microbiology 05/06/21 23:00 Urine, Clean Catch Urine Culture - Preliminary GNR lactose assistant speech language pathologist GNR lactose assistant speech language pathologist#2 ROS Constitutional Constitutional: Reports systems reviewed and no addt'l complaints, except as documented Cardiovascular Cardiovascular: Reports systems reviewed and no addt'l complaints, except as documented Respiratory/Chest Respiratory/Chest: Reports systems reviewed and no addt'l complaints, except as documented Gastrointestinal Gastrointestinal: Reports systems reviewed and no addt'l complaints, except as documented Physical Exam Const alert, oriented x3 and no apparent distress HEENT Head and Scalp: atraumatic Resp normal respiratory effort GI soft to palpation and non-tender Bimanual Exam - Vag & Uterus: uterus non-tender Uterus Palpation: uterus fundus firm (below Umbilicus) Assessment & Plan (1) Vaginal delivery: COMMENT: 38 SM IAL girl [place] PLAN: s/p PPD # 1 1. routine post delivery care 2. breast feeding- support given 3. rh negative 4. rubella immune
--- NOTE | 2021-05-08 13:16 | CASEMGMT ---
SW Note Referral Reason: History of anxiety. Currently on Celexa Referral Source: Mom: Joelle PNC: Dr. Morales Bryan Control: Tub ual Ligation Baby: Servando Mauro 05/07/21 Weight 6#8 ounces Pediatrican: Strong Breast Feeding SW reviewed chart. SW met with patient. Patient gave this caption writer permission to speak to her in the presence of the FOB/patient's , Lucas. MOB's Other Children: Boy age 12, Boy age 5 and daughter age 2 Housing: Patient, FOB and their children reside in a house. Transportation: Patient reports she has access to transportation and is able to drive. Supplies: Patient has carseat, crib, bassinet and all supplies. Supports: Patient said that her is a support as well as her mother in law and mother (who are both local). Education Level: Patient graduated from High School. No learning issues. 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 She is not employed outside the home. Agency Involvement: Patient reports no JFS, WIC, HMG, Counseling, Legal or CSB involvement FOB: Lucas Time Together: 14 years Involved at : FOB appears to be involved with the nb Employment: Self Employed in [employer]. Patient said that FOB can be available to assist due to his job. FOB is father to patient's 3 other children. FOB MH/AOD and DV: Denied by patient Mental Health: Patient reports anxiety during this . She reports she was just anxious and went and spoke to her MD and has been on celexa which has been helping. Patient said that she plans to continue to take the celexa but eventually is hoping to wean off it. Patient denied any SI/HI. Patient had also advised RN that this was unexpected which, along with the COVID, contributed to patient's heightened anxiety. Patient was educated on Post Depression, Shaken Baby Syndrome and Safe Sleeping Patient denied any drug or alcohol use. Patient said that she is excited to go home. Patient smiled and appeared comfortable with . Patient appeared to be bonding well with the . SW spoke to Shikha RN who reports no discharge concerns. SW provided patient with handout packet on Post Depression and resources and support. Of note Patient's PHQ score was 0 per charting Plan: Home at discharge [place]
== END 2021-05-08 12:36 | disposition home or self-care (01) | DRG 806 ==
LOC: WPOUT 00:33 → WP 00:33
PROVIDERS: Admitting Provider Obstetrics & Gynecology; PCP Student in an Organized Health Care Education/Training Program; Visit Provider Obstetrics & Gynecology
DX: O23.43 Unspecified infection of urinary tract in pregnancy, third trimester (principal); N39.0 Urinary tract infection, site not specified; B96.20 Unspecified Escherichia coli [E. coli] as the cause of diseases classified elsewhere; Z37.0 Single live birth; O99.344 Other mental disorders complicating childbirth; F32.A Depression, unspecified; F41.9 Anxiety disorder, unspecified; O26.891 Other specified pregnancy related conditions, first trimester; Z67.91 Unspecified blood type, Rh negative; Z3A.38 38 weeks gestation of pregnancy; Z87.59 Personal history of other complications of pregnancy, childbirth and the puerperium
CPT/HCPCS: 59025; 59050; 81001; 84112; 85025; 85461; 86850; 86900; 86901; 87077; 87086; 87088; 87186; 90384; 99218; G0378; J2790

== ENCOUNTER 2021-05-15 07:12 | Inpatient (IN) | payer SELFPAY ==
[2021-05-15] VITALS (12 sets, daily range): BP systolic 109–149; BP diastolic 56–90; PULSE 78–135; RESP 16–20; TEMP 36.3–37.1; O2SAT 97–100; BMI 38.0; BMI 37.9
--- NOTE | 2021-05-15 07:22 | EDS_ITS ---
HPI History of Present Illness Chief Complaint: Abd Pain Informant: patient Onset/Context/Timing Onset: Days Context: Gradual Onset Timing: Waxes and wanes Current Severity: Moderate Maximum Severity: Moderate Narrative Narrative: Patient presents secondary to right upper quadrant pain. Patient states of the past couple days she is had intermittent pain that typically would get better when she would pass gas. Pain has been constant since yesterday. She did have a small bowel movement this morning without improvement of her pain. No fever or chills. No nausea or vomiting. Mild reflux. Patient is 1 week from a vaginal delivery. She is currently breast-feeding. She has had a prior cholecystectomy. [facility] Medical History (Updated 05/15/21 @ 10:[address] Melisa Duarte MD) Anxiety Home Medications prenat.vits,jose alberto,[id number] 1 tab PO QDAY 10/10/17 [History Last Taken 05/06/21] miscellaneous medical supply #1 ea 04/14/21 [Rx Last Taken Unknown] nitrofurantoin monohydrate/macrocrystals 100 mg capsule 100 mg PO BID #14 cap 04/20/21 [Rx Last Taken Unknown] citalopram 20 mg PO DAILY 05/06/21 [History Last Taken 05/06/21] cephalexin 500 mg capsule 500 mg PO Q12H #14 cap 05/07/21 [Rx Last Taken Unknown] Allergy/AdvReac Type Severity Reaction Status Date / Time latex Allergy Swelling Verified 05/15/21 07:15 oxycodone Allergy Itching Verified 05/15/21 07:15 Family History Unknown Colon cancer Surgical History H/O lithotripsy History of cholecystectomy S/P ACL repair Social History adopted: No household members: family housing: house number of children: 3 current occupational status: employed Smoking Status: Never smoker second hand exposure: No alcohol intake: never substance use type: does not use caffeine: Yes what type of physical activity do you participate in: none seatbelt use: always do you feel safe at home: Yes additional social history: [place]- Self Employed Patient works for [employer] ROS ROS ED Constitutional Constitutional ED: Denies chills or fever(s) Eyes Eyes: Denies change in vision ENT ENT ED: Denies sore throat Cardiovascular Cardiovascular: Denies chest pain Respiratory/Chest Respiratory/Chest: Denies cough or dyspnea Gastrointestinal Gastrointestinal: Reports abdominal pain; Denies diarrhea, nausea or vomiting Genitourinary Genitourinary ED: Denies dysuria Musculoskeletal Musculoskeletal: Denies back pain Integumentary Denies rash Neurologic Neurologic: Denies headache(s) or weakness Allergic/Immunologic Allergic/Immunologic ED: Denies urticaria EXAM Physical Exam Const Vital Signs: 05/15/21 07:13 05/15/21 09:44 05/15/21 10:18 Temperature 97.4 F L Temperature Source Temporal Pulse Rate 84 78 110 H Respiratory Rate 18 16 Blood Pressure 128/90 H 134/69 H 149/89 H Blood Pressure Mean 102 90 109 Pulse Ox 99 98 100 Oxygen Delivery Method Room Air Room Air Room Air Positive well nourished and well developed General Appearance ED: well developed HEENT Reports normocephalic and head/scalp atraumatic Eyes PERRL and EOMs intact bilaterally Neck supple Chest Wall inspection of chest normal and palpation of chest normal Resp normal respiratory effort and clear to auscultation bilaterally Cardio regular rate and regular rhythm GI Auscultation: normoactive bowel sounds Palpation: soft and tender RUQ (Minimal tenderness to the right upper quadrant. No guarding or rebound.) Extremity normal to inspection Neuro oriented x3 and no sensory deficits noted Sensorium / Orientation: alert Motor Exam: strength 5/5 throughout Psych mental status grossly normal Skin no rashes or lesions noted MDM MDM MDM Narrative Medical decision making narrative: Lab work obtained and patient given Toradol and Zofran. Lab Data Attestation: I reviewed the patient's lab results. Labs: Laboratory Results - last 24 hr 05/15/21 05/15/21 05/15/21 07:29 07:29 09:08 WBC 11.5 H RBC 4.44 Hgb 13.1 Hct 40.3 MCV 90.8 MCH 29.5 MCHC 32.5 RDW Std Deviation 40.8 RDW Coeff of Seferino 12.3 Plt Count 279 MPV 9.6 Immature Gran % (Auto) 0.400 Neut % (Auto) 84.9 H Lymph % (Auto) 10.4 L [place] % (Auto) 3.8 Eos % (Auto) 0.3 Baso % (Auto) 0.2 Absolute Neuts (auto) 9.7 H Absolute Lymphs (auto) 1.19 Nucleated RBC % 0 Sodium 138 Potassium 4.0 Chloride 109 H Carbon Dioxide 23.0 Anion Gap 6 BUN 17 Creatinine 0.86 Estim Creat Clear Calc 71.52 Est GFR (MDRD) Af Amer 99 Est GFR (MDRD) Non-Af 82 BUN/Creatinine Ratio 19.9 Glucose 103 Calcium 8.7 Total Bilirubin 0.30 Direct Bilirubin 0.07 AST 15 ALT 24 Alkaline Phosphatase 92 Total Protein 7.3 Albumin 2.8 L Globulin 4.5 H Lipase 155 Urine Color Yellow Urine Clarity Clear Urine pH 5.0 Ur Specific [place] 1.015 Urine Protein 100 H Urine Glucose (UA) Normal Urine Ketones Negative Urine Occult Blood 250 H Urine Nitrite Negative Urine Bilirubin Negative Urine Urobilinogen Normal Ur Leukocyte Esterase 500 H Urine RBC 0-5 SEEN Urine WBC 0-5 SEEN Ur Squamous Epith Cells 0-5 SEEN Urine Bacteria 1+ Urine Mucus 0 SEEN Radiography Diagnostic Testing: Clinical Impression(s) from Imaging Studies Abdomen/Pelvis CT 05/15/21 08:12 IMPRESSION: 1. Persistent moderate right hydronephrosis with 5 mm stone in the right renal pelvis. Blood clots or debris in the right renal pelvis. 2. Air in the right renal pelvis and lower pole calyx. In the absence of recent intervention, emphysematous pyelonephritis cannot be excluded. 3. Air in the bladder presumably secondary to recent catheterization. Otherwise cystitis cannot be excluded. 4. Enlarged uterus with fluid and density within it as described above. 5. Otherwise no focal acute inflammatory process. Electronically Signed: August Thompson MD at 9:16 EDT Tel , Service support , Treatment and Re-Evaluation Comments:: Lab work reveals minimal elevation in white count. Renal function normal. Patient sent for CT flank which reveals air in the right kidney. CT is done both with and without IV contrast. This reveals moderate right hydronephrosis with a 5 mm stone in the right renal pelvis and blood clots or debris in the renal pelvis. There is air in the renal pelvis and lower pole concerning for emphysematous pyelonephritis. Urinalysis is obtained and does reveal 1+ bacteria. Patient is given a dose of IV Rocephin and urine culture ordered. Patient discussed with Dr. Wallace. He will admit the patient for stent placement. Discharge Plan Triage Chief Complaint: Abd Pain ED Provider: Melisa Duarte Dx/Rx/DC Orders Clinical Impression: Calculus of right kidney, Emphysematous pyelonephritis Prescriptions: No Action prenat.vits,jose alberto,[id number] [ Vitamin] tablet 1 tab PO QDAY RF: 0 (DME) Blood Pressure Cuff Misc See Rx Instructions .ROUTE .MEDSUPPLY Qty: 1 RF: 0 citalopram 20 mg tablet 20 mg PO DAILY RF: 0 nitrofurantoin monohyd/m-cryst [Macrobid] 100 mg capsule 100 mg PO BID Qty: 14 RF: 0 cephalexin 500 mg capsule 500 mg PO Q12H Qty: 14 RF: 0 Primary Care Provider: Robert Celeste Referrals: Robert Celeste DO [Primary Care Provider] - Disposition Disposition: Acute Care Hospital [facility]
[2021-05-15] MEDS: Ketorolac 30 MG/ML Syringe IV (07:34)
[2021-05-15 07:40] LABS: Absolute Lymphocyte Count 1.19 X10^3/uL (0.83-4.51); Absolute Neutrophil Count 9.7 X10^3/uL (2.0-7.7); Basophil# 0.02 X10^3/uL; Basophil% 0.2 % (0-1); Eosinophil# 0.04 X10^3/uL; Eosinophils% 0.3 % (0-5); Hematocrit 40.3 % (37-47); Hemoglobin 13.1 g/dL (12.0-15.0); Lymphocyte # 1.19 X10^3/ul (0.83-4.51); Lymphocyte % 10.4 % (19-41); Mean Corp Hgb Conc 32.5 g/dL (32-36); Mean Corpuscular Hgb 29.5 pg (27.0-32.0); Mean Corpuscular Volume 90.8 fL (81-99); Mean Platelet Vol. 9.6 fl (6.2-12.0); Monocyte# 0.44 X10^3/uL; Monocyte% 3.8 % (0-10); NRBC Flagged by Analyzer 0 % (0-5); Neutrophil # 9.72 X10^3/uL (2.7-7.7); Neutrophil % 84.9 % (47-70); Platelet Count 279 K/mm3 (150-450); RBC Distribution Width CV 12.3 % (11.6-14.6); RBC Distribution Width SD 40.8 fl (35.1-43.9); Red Blood Count 4.44 M/mm3 (4.2-5.4); White Blood Count 11.5 K/mm3 (4.4-11.0)
[2021-05-15 08:07] LABS: AST(SGOT) 15 U/L (15-37); Alanine Aminotransfer ALT/SGPT 24 U/L (13-56); Albumin, Serum 2.8 g/dL (3.2-5.0); Alkaline Phosphatase 92 U/L (45-117); Anion Gap 6 (5-15); BUN 17 mg/dL (7-18); BUN/Creat Ratio 19.9 RATIO (10-20); Bilirubin, Direct 0.07 mg/dL (0.00-0.30); Calcium,Total 8.7 mg/dL (8.5-10.1); Chloride 109 mmol/L (98-107); Creatinine, Serum 0.86 mg/dL (0.55-1.02); EST Glomerular Filtration Rate 82 mL/min (>60); Est Glom Filt Rate - Afr Amer 99 mL/min (>60); Estimated Creatinine Clearance 71.52 ml/min; Globulin 4.5 g/dL (2.2-4.2); Glucose 103 mg/dL (74-106); Lipase 155 U/L (73-393); Protein, Total 7.3 g/dL (6.4-8.2); Sodium Level 138 mmol/L (136-145)
--- NOTE | 2021-05-15 08:12 | CT_ITS ---
STUDY: CT ABDOMEN AND PELVIS WITH AND WITHOUT CONTRAST REASON FOR EXAM: Female, 30 years old. Right sided abd pain RADIATION DOSAGE (If Supplied By Facility): CTDIvol = ( 16.05 ) mGy, DLP = ( 2536.13 ) mGycm TECHNIQUE: Transaxial images were obtained from the dome of the diaphragm to the symphysis pubis without oral contrast. Intravenous contrast was administered. Sagittal and coronal images were reconstructed. Individualized dose optimization techniques were used for this CT. COMPARISON: 08/03/2017. FINDINGS: The visualized lung bases are unremarkable. The visualized portions of the heart are within normal limits. Normal liver. Absent gallbladder consistent with previous cholecystectomy. Normal spleen. Normal pancreas. Normal bilateral adrenal glands. Persistent moderate right hydronephrosis. 5 mm stone in the right renal pelvis with adjacent densities/debris. Pockets of air in the right renal pelvis and lower pole calyx of the right kidney. No evidence of ureteral stone. Normal left kidney. Normal visualized stomach. Nonspecific fluid-filled small bowel loops without evidence of bowel obstruction. Thickening of the colon particularly the transverse and descending colon likely due to underdistention. Colitis is less likely. The appendix is visualized and appears normal. Normal abdominal aorta. Normal inferior vena cava. Normal retroperitoneum. The bladder is not well-distended. Air in the bladder which could be due to recent catheterization. Otherwise infectious process cannot excluded. Enlarged uterus with fluid within the endometrial cavity and densities could represent blood clots. There are small umbilical hernia containing fat. No demonstrated acute osseous changes. CT/CT Abd/Pelvis W/WO Contrast IMPRESSION: 1. Persistent moderate right hydronephrosis with 5 mm stone in the right renal pelvis. Blood clots or debris in the right renal pelvis. 2. Air in the right renal pelvis and lower pole calyx. In the absence of recent intervention, emphysematous pyelonephritis cannot be excluded. 3. Air in the bladder presumably secondary to recent catheterization. Otherwise cystitis cannot be excluded. 4. Enlarged uterus with fluid and density within it as described above. 5. Otherwise no focal acute inflammatory process. Electronically Signed: August Thompson MD at 9:16 EDT Tel , Service support ,
[2021-05-15 09:12] LABS: Mucous, Urine 0 SEEN /hpf (<or=2+)
[2021-05-15 09:17] LABS: Color, Urine Yellow (Yellow); Glucose, Dipstick Normal (Normal); Ketone-Dipstick Negative (Negative); Leukocyte Esterase-Dipstick 500 /ul (Negative); Nitrite-Dipstick Negative (Negative); Occult Blood-Urine 250 /ul (Negative); Protein-Dipstick 100 mg/dl (Negative); Specific Gravity, Urine 1.015 (1.002-1.030); Urine Bilirubin Dipstick Negative (Negative); Urine Clarity Clear (Clear); Urine Urobilinogen Normal (Normal)
[2021-05-15 09:23] LABS: Red Blood Cells-Urine 0-5 SEEN /hpf (0-5); Squamous Epithelial Cells - UA 0-5 SEEN /hpf (5-10); White Blood Cells 0-5 SEEN /hpf (0-5)
[2021-05-15 09:24] LABS: Bacteria 1+ /hpf (None Seen)
[2021-05-15] MEDS: Ceftriaxone 1 GM/50 ML BAG IV (09:43)
[2021-05-15] MEDS: LORazepam 2 MG/ML Syringe 0.5 MG IV (10:53)
[2021-05-15] MEDS: Ondansetron 4 MG/2 ML Vial IV (10:53)
--- NOTE | 2021-05-15 11:35 | NURSING ---
1030: Instructed pt on pump use. Pt verbalized understanding. Pt declines pumping at this time d/t feeling nauseated. CARMELITA Brand aware that breastpump in room and that ER needs to charge for pump.
--- NOTE | 2021-05-15 11:37 | HP.PCM_ITS ---
HPI - General General Date of Admission: 05/15/21 HPI Narrative ULISES GARCIA, is a 30 F who presents with pyelonephritis in right kidney gas in the kidney consistent with gaseous pyelonephritis case Dr. Wallace and they will she has an pyelonephritis and obstructing stone in the right kidney, patient will be admitted for IV antibiotics she is clinically stable the CAT scan shows signs of severe infection but she is clinically stable so admitted for IV antibiotics and plan to place a stent tomorrow morning the team has been notified. [facility] Medical History (Updated 05/15/21 @ 10:[address] Melisa Duarte MD) Anxiety Home Medications prenat.vits,jose alberto,[id number] 1 tab PO QDAY 10/10/17 [History Last Taken 05/06/21] miscellaneous medical supply #1 ea 04/14/21 [Rx Last Taken Unknown] nitrofurantoin monohydrate/macrocrystals 100 mg capsule 100 mg PO BID #14 cap 04/20/21 [Rx Last Taken Unknown] citalopram 20 mg PO DAILY 05/06/21 [History Last Taken 05/06/21] cephalexin 500 mg capsule 500 mg PO Q12H #14 cap 05/07/21 [Rx Last Taken Unknown] Allergy/AdvReac Type Severity Reaction Status Date / Time latex Allergy Swelling Verified 05/15/21 07:15 oxycodone Allergy Itching Verified 05/15/21 07:15 Family History Unknown Colon cancer Surgical History H/O lithotripsy History of cholecystectomy S/P ACL repair Social History adopted: No household members: family housing: house number of children: 3 current occupational status: employed Smoking Status: Never smoker second hand exposure: No alcohol intake: never substance use type: does not use caffeine: Yes what type of physical activity do you participate in: none seatbelt use: always do you feel safe at home: Yes additional social history: [place]- Self Employed Patient works for [employer] [facility] [employer] [facility] Constitutional Constitutional: Denies chills, fever(s) or malaise Eyes Eyes: Denies blurry vision or change in vision ENT HEENT: Reports none Cardiovascular Cardiovascular: Denies chest pain or palpitations Respiratory/Chest Respiratory/Chest: Denies cough or shortness of breath with exertion Gastrointestinal Gastrointestinal: Denies abdominal pain, constipation or diarrhea Genitourinary Genitourinary: Reports systems reviewed and no addt'l complaints, except as documented Musculoskeletal Musculoskeletal: Denies back pain, joint stiffness or joint swelling Integumentary Integumentary: Denies dry skin, jaundice, lesions or rash Neurologic Neurologic: Denies confusion, syncope or weakness Psychiatric Psychiatric: Reports none; Denies anxiety or depression Endocrine Endocrinology: Denies excessive sweating, fatigue or flushing Hematologic/Lymphatic Hematologic/Lymphatic: Denies anemia, easy bleeding or easy bruising Vital Signs Vital Signs Vital Signs: 05/15/21 07:13 05/15/21 09:44 05/15/21 10:18 Temperature 97.4 F L Temperature Source Temporal Pulse Rate 84 78 110 H Respiratory Rate 18 16 Blood Pressure 128/90 H 134/69 H 149/89 H Blood Pressure Mean 102 90 109 Pulse Ox 99 98 100 Oxygen Delivery Method Room Air Room Air Room Air 05/15/21 10:46 Temperature 98 F Temperature Source Temporal Pulse Rate 115 H Respiratory Rate 16 Blood Pressure 135/79 H Blood Pressure Mean 97 Pulse Ox 100 Oxygen Delivery Method Room Air Weight Weight: 91.172 kg Body Mass Index (BMI) 38.0 Physical Exam Const alert and oriented x3 General Appearance: cooperative HEENT normocephalic, head/scalp atraumatic, EAC's normal and TM's normal bilaterally Eyes PERRL and EOMs intact bilaterally Pupil: sluggish Neck no lymphadenopathy, supple and no JVD General: trachea midline Lymph Lymphatic: no lymphadenopathy noted, lymphedema and lymphadenopathy Resp normal respiratory effort, normal air movement and clear to auscultation bilaterally Cardio regular rate, regular rhythm and peripheral pulses 2+ throughout GI soft to palpation, non-tender and non-distended Extremity normal capillary refill and no clubbing, cyanosis or edema General Extremity: no tenderness to palpation of joints or extremities Skin no rashes or lesions noted General Skin Exam: turgor normal Lesions: no lesions Rashes: no rashes Neuro CN's II-XII intact bilaterally Speech: speech normal Motor Exam: strength 5/5 throughout; Negative for general weakness Psych thought process normal, cooperative and affect normal Appearance: appropriate Results Lab / Micro Data Result Diagrams: 05/15/21 07:29 05/15/21 07:29 Labs: Laboratory Results - last 24 hr 05/15/21 07:29: WBC 11.5 H, RBC 4.44, Hgb 13.1, Hct 40.3, MCV 90.8, MCH 29.5, MCHC 32.5, RDW Std Deviation 40.8, RDW Coeff of Seferino 12.3, Plt Count 279, MPV 9.6, Immature Gran % (Auto) 0.400, Neut % (Auto) 84.9 H, Lymph % (Auto) 10.4 L, [place] % (Auto) 3.8, Eos % (Auto) 0.3, Baso % (Auto) 0.2, Absolute Neuts (auto) 9.7 H, Absolute Lymphs (auto) 1.19, Nucleated RBC % 0 05/15/21 07:29: Sodium 138, Potassium 4.0, Chloride 109 H, Carbon Dioxide 23.0, Anion Gap 6, BUN 17, Creatinine 0.86, Estim Creat Clear Calc 71.52, Est GFR (MDRD) Af Amer 99, Est GFR (MDRD) Non-Af 82, BUN/Creatinine Ratio 19.9, Glucose 103, Calcium 8.7, Total Bilirubin 0.30, Direct Bilirubin 0.07, AST 15, ALT 24, Alkaline Phosphatase 92, Total Protein 7.3, Albumin 2.8 L, Globulin 4.5 H, Lipase 155 05/15/21 09:08: Urine Color Yellow, Urine Clarity Clear, Urine pH 5.0, Ur Specific [place] 1.015, Urine Protein 100 H, Urine Glucose (UA) Normal, Urine Ketones Negative, Urine Occult Blood 250 H, Urine Nitrite Negative, Urine Bilirubin Negative, Urine Urobilinogen Normal, Ur Leukocyte Esterase 500 H, Urine RBC 0-5 SEEN, Urine WBC 0-5 SEEN, Ur Squamous Epith Cells 0-5 SEEN, Urine Bacteria 1+, Urine Mucus 0 SEEN Radiology Impression Abdomen/Pelvis CT 05/15/21 08:12 IMPRESSION: 1. Persistent moderate right hydronephrosis with 5 mm stone in the right renal pelvis. Blood clots or debris in the right renal pelvis. 2. Air in the right renal pelvis and lower pole calyx. In the absence of recent intervention, emphysematous pyelonephritis cannot be excluded. 3. Air in the bladder presumably secondary to recent catheterization. Otherwise cystitis cannot be excluded. 4. Enlarged uterus with fluid and density within it as described above. 5. Otherwise no focal acute inflammatory process. Electronically Signed: August Thompson MD at 9:16 EDT Tel , Service support , Assessment & Plan Assessment/Plan (1) Calculus of right kidney: (2) Emphysematous pyelonephritis:
[2021-05-15] MEDS: Ketorolac 15 MG/ML Vial IV (12:21)
[2021-05-15] MEDS: 0.9% Saline Lock 10 ML Syringe IV (12:22)
[2021-05-15] MEDS: Acetaminophen 500 MG Tablet PO (12:51)
[2021-05-15] MEDS: Lidocaine Jelly 2% 20 ML Syringe (URO-JET) 20 APPLIC (17:50)
--- NOTE | 2021-05-15 17:58 | PCM.DC ---
Discharge Instructions Diet Discharge Diet: No restrictions Activity Discharge Activity: May Not Drive (while taking narcotic pain medications.) Dressing / Incision Call your doctor if you observe: Fever of 101 or Higher Follow Up Care Please Follow Up With: Yousuf Wallace MD When: Call [phone] to get set up for surgery to laser stone Test Results: Test results from this visit will be discussed in further detail at your follow-up appointment, if applicable. Discharge Plan Admission Admit Date/Time: 05/15/21 11:28 Primary Reason for Your Visit: right pyelonephritis and obstructing stone Attending Provider: Yousuf Wallace Primary Care Provider: Robert Celeste Discharge Orders/Prescriptions Prescriptions: New cephalexin 500 mg capsule 500 mg PO TID Qty: 20 RF: 0 acetaminophen [Tylenol Extra Strength] 500 mg tablet 500 mg PO Q6H PRN (Reason: fever or pain) Qty: 20 RF: 0 Continued prenat.vits,jose alberto,[id number] [ Vitamin] tablet 1 tab PO QDAY RF: 0 (DME) Blood Pressure Cuff Misc See Rx Instructions .ROUTE .MEDSUPPLY Qty: 1 RF: 0 citalopram 20 mg tablet 20 mg PO DAILY RF: 0 Referrals / Follow Up: Robert Celeste DO [Primary Care Provider] - Yousuf Wallace MD [STAFF PHYSICIAN] - Disposition Discharge Orders: Discharge Patient (Routine); Ordered 05/15/21 Ordered By: Dr. Yousuf Wallace
--- NOTE | 2021-05-15 17:59 | PCM.OPRPT ---
Report of Operation Date of Procedure: 05/15/21 Pre-Operative Diagnosis: Right pyelonephritis emphysematous with obstructing stone Post-Operative Diagnosis: Same Surgery/Procedure Performed:: Cystoscopy right retrograde pyelogram right stent placement Description of Surgical Findings:: Indication 30-year-old female she is 1 week states that she is being treated with antibiotics during her infection she presented with severe pain on the right side CAT scan was done demonstrated emphysematous right pyelonephritis with obstructing stone and some debris so today were to take her to surgery for stent placement. Room at the smooth induction of general anesthesia she was placed in dorsolithotomy position. The urethra vaginal area prepped and draped in usual sterile fashion went in the bladder with a 21 [place] rigid cystourethroscope the entire length the urethra is normal the bladder was normal cannulated the right ureteral orifice with a Pollick catheter and a Glidewire advanced up into the kidney once in the kidney performed a retrograde pyelogram with only about 5 cc of contrast to delineate the anatomy then the wire was coiled in the upper pole the kidney I then placed a stent to a 6 [place] by 26 cm stent once the stent was in place and pulled the wire the stent coiled in the kidney bladder good position and drained purulent looking urine from the right kidney also some air came to the stent. Patient desired to go home she is a from child she is clinically stable so we will discharge her home with antibiotics and my office will get her set up for surgery to laser the obstructing stone at a separate setting once her infection is cleared. Surgeon: neema Type of Anesthesia: General Drains: stent right Admit VTE Documentation VTE Present on Admission: No VTE Mechan Device Prophylaxis: None VTE Pharm Prophylaxis ordered?: No
== END 2021-05-15 20:40 | disposition home or self-care (01) | DRG 660 ==
LOC: ED 10:46 → MS2 11:32
PROVIDERS: Admitting Provider Urology; Emergency Provider Emergency Medicine; PCP Student in an Organized Health Care Education/Training Program; Visit Provider Urology
PROC: 0T768DZ Dilation of Right Ureter with Intraluminal Device, Via Natural or Artificial Opening Endoscopic (ICD-10-PCS; principal; 2021-05-15 17:20)
DX: N20.0 Calculus of kidney (principal); N13.6 Pyonephrosis; B96.20 Unspecified Escherichia coli [E. coli] as the cause of diseases classified elsewhere; F41.9 Anxiety disorder, unspecified; Z79.899 Other long term (current) drug therapy
CPT/HCPCS: 74178; 76000; 80048; 80076; 81001; 83690; 85025; 87077; 87086; 87088; 87186; 87426; 99284; J7050; Q9967; A4216; C1769; C2617; J2405

== ENCOUNTER 2021-05-26 12:33 | Day surgery (SDC) | payer MEDICAID, SELFPAY ==
[2021-05-26] VITALS (8 sets, daily range): BP systolic 124–152; BP diastolic 77–98; PULSE 65–99; RESP 16–18; TEMP 36.1–37.1; O2SAT 98–100; BMI 35.8
--- NOTE | 2021-05-26 12:41 | RAD_ITS ---
STUDY: X-RAY - ABDOMEN/PELVIS REASON FOR EXAM: Female, 30 years old. For preop for stent removal TECHNIQUE: Two AP supine views of the abdomen and pelvis. COMPARISON: 08/22/2017 FINDINGS: Since the previous study, a right-sided JJ stent has been placed and is in satisfactory position. No suspicious calcifications overlying either renal shadow, or along the expected course of either ureter, one could be obscured by the overlying bowel gas and stool. There is a moderate amount of colonic fecal material. There is no demonstrated free abdominal air. The visualized liver, spleen and kidneys are grossly normal in size and morphology. Normal soft tissue structures. Normal visualized osseous structures. RAD/Abdomen Single View IMPRESSION: Satisfactory appearance of a right-sided JJ stent Retained stool Electronically Signed: Moshe Haskins MD at 13:16 EST , Service support ,
[2021-05-26 13:15] LABS: Internal QC Validated? YES +Cl - CLEAR BKGD
[2021-05-26 13:18] LABS: Pregnancy, Urine Negative Negative
[2021-05-26] MEDS: Lactated Ringers 1,000 ML 15 ML IV (13:20)
[2021-05-26] MEDS: Cefazolin 2 GM in 0.9% Normal Saline 100 ML IV (15:15)
--- NOTE | 2021-05-26 16:09 | HP.PCM_ITS ---
HPI - General HPI Narrative ULISES GARCIA, is a 30 F who presents for treatment of right kidney stone and removal of stent PFSH Medical History Anxiety Home Medications prenat.vits,jose alberto,fvn-xuzh-ugemo 1 tab PO QDAY 10/10/17 [History Last Taken 05/13/21 10:00] miscellaneous medical supply #1 ea 04/14/21 [Rx Last Taken Unknown] citalopram [Celexa] 20 mg PO DAILY 05/06/21 [History Last Taken 05/13/21 10:00] acetaminophen [Tylenol Extra Strength] 500 mg PO Q6H PRN #20 tab 05/15/21 [Rx Last Taken Unknown] cephalexin 500 mg PO TID #20 cap 05/15/21 [Rx Last Taken Unknown] cephalexin 500 mg PO TID #15 cap 05/26/21 [Rx Last Taken Unknown] Allergy/AdvReac Type Severity Reaction Status Date / Time latex Allergy Swelling Verified 05/26/21 13:21 oxycodone Allergy Itching Verified 05/26/21 13:21 Family History Unknown Colon cancer Surgical History H/O lithotripsy History of cholecystectomy S/P ACL repair Social History adopted: No household members: family housing: house number of children: 3 current occupational status: employed Smoking Status: Never smoker second hand exposure: No alcohol intake: never substance use type: does not use caffeine: Yes what type of physical activity do you participate in: none seatbelt use: always do you feel safe at home: Yes additional social history: [place]- Self Employed Patient works for [employer] Vital Signs Vital Signs Vital Signs: 05/26/21 13:20 Temperature 97.9 F Temperature Source Temporal Pulse Rate 74 Respiratory Rate 18 Respiratory Pattern Normal Blood Pressure 142/77 H Blood Pressure Mean 98 Blood Pressure Source Monitor Blood Pressure Position Sitting Blood Pressure Location Right Arm Pulse Ox 98 Oxygen Delivery Method Room Air Weight Weight: 86 kg Body Mass Index (BMI) 35.8 Results Lab / Micro Data Labs: Laboratory Results - last 24 hr 05/26/21 13:00: Urine Test Negative Micro: Microbiology 05/26/21 13:13 Interface Orders SARS-CoV-2 Antigen (Rapid) - Final Radiology Impression KUB X-Ray 05/26/21 12:41 IMPRESSION: Satisfactory appearance of a right-sided JJ stent Retained stool Electronically Signed: Moshe Haskins MD at 13:16 EST , Service support ,
--- NOTE | 2021-05-26 16:09 | PCM.DC ---
Discharge Instructions Diet Discharge Diet: No restrictions Activity Discharge Activity: Return to Normal Activity and May Not Drive (while taking narcotic pain medications.) Dressing / Incision Call your doctor if you observe: Fever of 101 or Higher Follow Up Care Please Follow Up With: Yousuf Wallace MD When: Call [phone] for an appointment Test Results: Test results from this visit will be discussed in further detail at your follow-up appointment, if applicable. Discharge Plan Admission Primary Reason for Your Visit: right kidney stone and stent Attending Provider: Yousuf Wallace Primary Care Provider: Robert Celeste Discharge Orders/Prescriptions Prescriptions: New cephalexin 500 mg capsule 500 mg PO TID Qty: 15 RF: 0 Continued prenat.vits,jose alberto,xxi-ggfp-ogbuj [ Vitamin] tablet 1 tab PO QDAY RF: 0 (DME) Blood Pressure Cuff Misc See Rx Instructions .ROUTE .MEDSUPPLY Qty: 1 RF: 0 citalopram [Celexa] 20 mg tablet 20 mg PO DAILY RF: 0 acetaminophen [Tylenol Extra Strength] 500 mg tablet 500 mg PO Q6H PRN (Reason: fever or pain) Qty: 20 RF: 0 No Action cephalexin 500 mg capsule 500 mg PO TID Qty: 20 RF: 0 Referrals / Follow Up: Robert Celeste DO [Primary Care Provider] - Disposition Disposition (needs filled in before D/C Order can be placed): Home, Self Care
--- NOTE | 2021-05-26 16:09 | PCM.OPRPT ---
Report of Operation Date of Procedure: 05/26/21 Pre-Operative Diagnosis: right kidney stone Post-Operative Diagnosis: same Surgery/Procedure Performed:: right ESWL and cysto stent removal. Description of Surgical Findings:: Patient presents to the hospital for treatment of a kidney stone with shockwave lithotripsy. In the preoperative area and x-ray was done to confirm the location of the stone. The x-ray was reviewed and the stone location was reviewed. In the preoperative setting I spoke with the patient regarding the treatment of the stone how the treatment would be conducted and the expectations after surgery. The patient understands there is a risk of bleeding and infection. Also discussed the very rare risk of hematoma or damage to the kidney. We also discussed the risk that the shockwave machine will fail to break the stone adequately and that the patient may need other surgical procedures. We also discussed the possibility that the patient may need a stent after the procedure. After reviewing the procedure with the patient, the patient is signed the consent form all the patient's questions were addressed and was taken back to the operating room for treatment of a kidney stone. Patient was taken back to the operating room, patient was identified by the nursing staff, we identified the side of the treatment and the patient side of treatment had been marked by my initials. The patient underwent general anesthetic and was placed supine on the lithotripter table. We then used fluoroscopy to identify the stone on the right side. We then positioned the patient under the lithotripter and we used triangulation technique to identify the location of the stone and then we made sure that the stone was engaged in the F2 focal point of F2 Donier lithoprior machine. Once the patient was positioned appropriately and the stone was identified and placed in the F2 focal point of the lithotripter machine we then proceeded with shockwave lithotripsy. In the beginning the shockwave was delivered at a rate of 90 shocks per minute, we monitor the EKG for any ectopy. The patient's urethra and genitals were prepped and draped in usual sterile fashion. I went into the bladder with a 21 Sudanese rigid cystourethroscope. I grabbed the stent emanating from the right ureteral orifice and then gently remove the stent from the bladder. I then drained the patient's bladder. The power was slowly increased to 5 kV and subsequently at the 7 kV. We then proceeded with the treatment we move the therapy had around during the treatment to make sure the stone stayed in the F2 focal point during the entire treatment and after 3000 shockwaves were delivered to the stone under fluoroscopic guidance the treatment was completed. The patient was given instructions to call the office to make an a follow-up appointment with an xray to evaluate the success of the treatment, pateint understands that its possible the stones may need another procedure.At this point the patient's anesthetic was reversed patient was extubated and taken back to the PACU in stable condition. Surgeon: neema Type of Anesthesia: General Drains: stent removed Admit VTE Documentation VTE Present on Admission: No VTE Mechan Device Prophylaxis: SCD's VTE Pharm Prophylaxis ordered?: No
== END 2021-05-26 17:47 | disposition home or self-care (01) ==
LOC: SDC 12:35 → AC 12:37
PROVIDERS: Anesthesiology; PCP Student in an Organized Health Care Education/Training Program; Referring Provider Urology; Visit Provider Urology
PROC: (CPT 50590; principal; 2021-05-26 14:15)
DX: N20.0 Calculus of kidney (principal); F41.9 Anxiety disorder, unspecified; Z79.899 Other long term (current) drug therapy; Z20.822 Contact with and (suspected) exposure to COVID-19
CPT/HCPCS: 50590; 52310; 74018; 81025; 87426; J7120; J2405

== ENCOUNTER → 2021-06-22 11:35 | Outpatient (CLI) | payer MEDICAID, SELFPAY ==
--- NOTE | 2021-06-22 11:45 | RAD_ITS ---
STUDY: X-RAY - ABDOMEN/PELVIS REASON FOR EXAM: Female, 30 years old. Calculus of kidney TECHNIQUE: Single AP view of the abdomen / pelvis. COMPARISON: Comparison is made with prior study dated 05/26/2021. FINDINGS: There is an abundance of fecal material throughout the colon. The previously seen right-sided double-J stent catheter has been removed. Normal soft tissue structures. Normal visualized osseous structures. RAD/Abdomen Single View IMPRESSION: A large amount of fecal material is seen in the colon. Status post removal of the right double-J stent catheter. Electronically Signed: Jony Alexander MD at 15:45 EST , Service support ,
[2021-06-29 16:15] LABS: HPV APTIMA, High Risk Positive (Negative)
== END ==
PROVIDERS: Obstetrics & Gynecology; PCP Student in an Organized Health Care Education/Training Program; Referring Provider Urology; Visit Provider Urology
DX: N20.0 Calculus of kidney (principal); Z12.4 Encounter for screening for malignant neoplasm of cervix
CPT/HCPCS: 74018; 87624; 88175; G0145

== ENCOUNTER 2021-07-16 12:56 | Outpatient (CLI) | payer SELFPAY ==
--- NOTE | 2021-07-15 | IMM_PTH ---
PATIENT: ULISES GARCIA LOC: [facility] U#:[id number] AGE/SX: 30/F ROOM: RE07/16/[address]: Dr. Melisa Landis DO : 1990 BED: DIS: 07/16/2021 SPEC #: [id number] RECD: 07/19/21 12:44 STATUS: LALA REIgnacio #: [id number] BILLY: 07/15/21 00:[address]: Melisa Landis DEPT: IMMUNOHISTOCHEMISTRY RECD BY: Lakshmi Mullins ENTERED: 07/19/21 12:45 SP TYPE: IMMUNO OTHR DR: Dr. Robert Celetse DO Tissues: B - Uterine cervix, NOS Procedures: p16 (initial) KI-67 (add) PHYSICIAN & INSTITUTION [place] [phone] SPECIMEN INFORMATION: Tissue Source: B ? 6 o?clock cervix Clinical Info: HPV positive Specimen Number: [id number] CPT code: 06443, 17266 METHODOLOGY: Deparaffinized sections of prefer/formalin-fixed tissue or PAP/DQ stained slides are incubated with monoclonal/polyclonal antibodies/oligonucleotide probes. Localization is made via biotin free immunoperoxidase method. Appropriate controls are performed and reacted as expected. Results on target cell population are indicated in the following table: RESULTS: ANTIBODY / CLONE RESULT Block B P16 (E6H4) positive, block-like Ki-67 (30-9) positive, moderate These tests were developed and their performance characteristics determined by [facility]. They may not have been cleared or approved by the U.S. Food and Drug Administration. The FDA has determined that such clearance or approval is not necessary. The above immunohistochemical/dualISH markers are ordered and reviewed by the Pathologist. INTERPRETATION: B. Cervix at 6 o?clock, biopsy: Moderately severe squamous dysplasia, MIRANDA II (HSIL). AM:nik 07/20/2021
--- NOTE | 2021-07-15 11:45 | CER_PTH ---
PATIENT: ULISES GARCIA LOC: [facility] U#:[id number] AGE/SX: 30/F ROOM: RE07/16/[address]: Dr. Melisa Landis DO : 1990 BED: DIS: 07/16/2021 SPEC #: [id number] RECD: 07/15/21 14:50 STATUS: LALA ALEJANDRO #: [id number] BILLY: 07/15/21 11:[address]: Melisa Landis DEPT: SURGICAL PATHOLOGY RECD BY: Jaky Veliz ENTERED: 07/16/21 13:16 SP TYPE: CERV OTHR DR: Dr. Robert Celeste, DO Tissues: A - Endocervical B - Uterine cervix, NOS Procedures: Surgery Specimen Level IV HEADER OPERATION: Colposcopy PRE-OP DIAGNOSIS: HPV positive TISSUE SUBMITTED: A ? ECC, B ? 6 o?clock MICROSCOPIC DIAGNOSIS A. Endocervix, curettings: Scant fragments of proliferative endometrium. Fragments of benign endocervix. B. Cervix at 6 o?clock, biopsy: Moderate squamous dysplasia, MIRANDA II (HSIL). Chronic inflammation and squamous metaplasia. See comment. AM:nik 07/19/2021 COMMENT B. Results from immunohistochemistry ([id number]) for surrogate HPV marker (p16) will be reported separately. Case has been reviewed in consultation with Dr. Espinoza who concurs with the above diagnosis. IDC:SJ MICROSCOPIC DESCRIPTION Slides are reviewed. GROSS DESCRIPTION A - Received in fixative is one container labeled with the patient's name and designated ECC. The specimen consists of multiple irregular fragments of disla mucoid tissue that in aggregate measure 1 x 0.2 x 0.1 cm. The specimen is totally submitted in one cassette. B - Received in fixative is one container labeled with the patient's name and designated 6 o'clock cervix. The specimen consists of one irregular fragment of light disla soft tissue that measures 0.3 x 0.2 x .1 cm. Also present in the container are multiple fragments of mucoid tissue that in aggregate measure 1 x 0.5 x 0.1 cm. The specimen is totally submitted in one cassette. / MAL:nik 07/16/2021 TC:0 CPT: 32896 x2
== END 2021-07-16 23:59 | disposition home or self-care (01) ==
LOC: LABSPEC 12:56
PROVIDERS: PCP Student in an Organized Health Care Education/Training Program; Visit Provider Obstetrics & Gynecology
DX: N87.1 Moderate cervical dysplasia (principal)
CPT/HCPCS: 88305; 88341; 88342

== ENCOUNTER 2021-07-20 22:31 | Emergency (ER) | payer SELFPAY ==
[2021-07-20 22:32] VITALS: BP 127/84; PULSE 125; RESP 16; TEMP 36.7; O2SAT 96; BMI 34.0
[2021-07-20 22:58] VITALS: RESP 17
--- NOTE | 2021-07-20 23:29 | EX.ED.DYSGE1 ---
HPI History of Present Illness Chief Complaint: Other, Pain/Inj Narrative Narrative: Patient is a 30-year-old female who is breast-feeding. She states in the last 1 to 2 days she has developed a low-grade fever with increased breast pain right sided breast swelling and now the development of a rash located along her right breast. She denies any cough congestion sore throat abdominal pain vomiting diarrhea or dysuria. She states she is concerned she is developing a soft tissue infection and therefore comes in for evaluation. Patient also denies any nipple discharge. [facility] Medical History (Updated 07/20/21 @ 23:[address] 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) Syncope Home Medications prenat.vits,jose alberto,isi-gbho-ysrzo 1 tab PO QDAY 10/10/17 [History Last Taken 05/13/21 10:00] citalopram [Celexa] 20 mg PO DAILY 05/06/21 [History Last Taken 05/13/21 10:00] acetaminophen [Tylenol Extra Strength] 500 mg PO Q6H PRN #20 tab 05/15/21 [Rx Last Taken Unknown] amoxicillin-pot clavulanate 1 tab PO BID 10 Days #20 tab 07/20/21 [Rx Last Taken Unknown] Allergy/AdvReac Type Severity Reaction Status Date / Time latex Allergy Swelling Verified 07/20/21 22:32 oxycodone Allergy Itching Verified 07/20/21 22:32 Family History Unknown Colon cancer Surgical History H/O lithotripsy History of cholecystectomy S/P ACL repair Social History adopted: No household members: family housing: house number of children: 4 current occupational status: employed Smoking Status: Never smoker second hand exposure: No alcohol intake: never substance use type: does not use caffeine: Yes what type of physical activity do you participate in: none seatbelt use: always do you feel safe at home: Yes additional social history: [employer]- Self Employed Patient works for [employer] [facility] ED Constitutional Constitutional ED: Reports fever(s); Denies chills ENT ENT ED: Denies sore throat Cardiovascular Cardiovascular: Denies chest pain Respiratory/Chest Respiratory/Chest: Denies cough or dyspnea Gastrointestinal Gastrointestinal: Reports nausea; Denies abdominal pain, diarrhea or vomiting Genitourinary Genitourinary ED: Denies dysuria Musculoskeletal Musculoskeletal: Denies myalgias Integumentary Reports rash Neurologic Neurologic: Denies headache(s) Hematologic/Lymphatic Hematologic/Lymphatic: Denies easy bleeding or easy bruising EXAM Physical Exam Const Vital Signs: 07/20/21 22:32 07/20/21 22:58 07/20/21 23:06 Temperature 98.0 F Temperature Source Temporal Pulse Rate 125 H Respiratory Rate 16 17 Respiratory Effort Normal Respiratory Pattern Normal Blood Pressure 127/84 H Blood Pressure Mean 98 Pulse Ox 96 Oxygen Delivery Method Room Air Positive well nourished and well developed General Appearance ED: well developed HEENT Reports moist mucous membranes Eyes PERRL and EOMs intact bilaterally Neck supple Resp normal respiratory effort and clear to auscultation bilaterally Cardio regular rhythm Rate: tachycardic GI normal to inspection, nondistended, normoactive bowel sounds, non-tender, non-distended and no masses Auscultation: normoactive bowel sounds Palpation: soft Extremity normal to inspection Neuro oriented x3 and CN's II-XII intact bilaterally Sensorium / Orientation: alert Motor Exam: strength 5/5 throughout Psych mental status grossly normal Skin Skin Narrative: The right breast is slightly swollen compared to the left. There is erythematous blanchable skin changes to the upper portion of the right breast consistent with mastitis. No palpable induration or fluctuance to suggest abscess. No nipple drainage noted. MDM MDM MDM Narrative Medical decision making narrative: Patient presented to the ER slightly tachycardic but otherwise afebrile with stable vital. Her history and exam is consistent with acute mastitis but it is localized to the breast tissue at this time with no secondary findings to suggest systemic infection. Therefore I feel there is no need for further work-up. Patient will be placed on Augmentin secondary to this and is otherwise safe for discharge. Discharge Plan Triage Chief Complaint: Other, Pain/Inj ED Provider: Ayaan Gonzalez Dx/Rx/DC Orders Clinical Impression: Mastitis Instructions: ED Mastitis Prescriptions: New amoxicillin-pot clavulanate 875-125 mg tablet 1 tab PO BID 10 Days Qty: 20 RF: 0 No Action prenat.vits,jose alberto,nuo-osgy-rbwjn [ Vitamin] tablet 1 tab PO QDAY RF: 0 citalopram [Celexa] 20 mg tablet 20 mg PO DAILY RF: 0 acetaminophen [Tylenol Extra Strength] 500 mg tablet 500 mg PO Q6H PRN (Reason: fever or pain) Qty: 20 RF: 0 Primary Care Provider: Robert Celeste Referrals: Robert Celeste DO [Primary Care Provider] - Disposition Disposition: Home, Self Care
[2021-07-21] MEDS: Amox/Clavulanate 875 MG Tablet PO (00:01)
== END 2021-07-21 00:14 | disposition home or self-care (01) ==
PROVIDERS: Emergency Provider Emergency Medicine; PCP Student in an Organized Health Care Education/Training Program; Visit Provider Emergency Medicine
DX: N61.0 Mastitis without abscess (principal)
CPT/HCPCS: 99283

== ENCOUNTER 2021-07-27 10:00 | Day surgery (SDC) | payer SELFPAY ==
--- NOTE | 2021-07-27 | IMM_PTH ---
PATIENT: ULISES GARCIA LOC: [facility] [place] U#:[id number] AGE/SX: 30/F ROOM: RE07/27/[address]: Dr. Milagros Tim MD : 1990 BED: DIS: 07/27/2021 SPEC #: [id number] RECD: 07/29/21 14:40 STATUS: LALA REQ #: [id number] BILLY: 07/27/21 00:[address]: Milagros Tim DEPT: IMMUNOHISTOCHEMISTRY RECD BY: Lakshmi Mullins ENTERED: 07/29/21 14:42 SP TYPE: IMMUNO OTHR DR: Dr. Robert Celeste DO Tissues: C - Uterine cervix, NOS Procedures: p16 (initial) KI-67 (add) PHYSICIAN & INSTITUTION [place] [id number] SPECIMEN INFORMATION: Tissue Source: C ? Cervix, cone Clinical Info: Sterilization Specimen Number: [id number] C4 CPT code: 81206, 72921 METHODOLOGY: Deparaffinized sections of prefer/formalin-fixed tissue or PAP/DQ stained slides are incubated with monoclonal/polyclonal antibodies/oligonucleotide probes. Localization is made via biotin free immunoperoxidase method. Appropriate controls are performed and reacted as expected. Results on target cell population are indicated in the following table: RESULTS: ANTIBODY / CLONE RESULT Block C4 P16 (E6H4) positive, block-like Ki-67 (30-9) positive, moderate These tests were developed and their performance characteristics determined by [facility]. They may not have been cleared or approved by the U.S. Food and Drug Administration. The FDA has determined that such clearance or approval is not necessary. The above immunohistochemical/dualISH markers are ordered and reviewed by the Pathologist. INTERPRETATION: C. Cervix, LEEP conization: Consistent with moderate squamous dysplasia, MIRANDA II (HSIL). AM:nik 07/30/2021 Case has been reviewed in consultation with Dr. Espinoza who concurs with the above diagnosis. IDC:SJ
[2021-07-27 10:18] VITALS: BP 128/82; PULSE 80; RESP 16; TEMP 36.3; O2SAT 100; BMI 37.5
[2021-07-27] MEDS: Lactated Ringers 1,000 ML 15 ML IV (10:31)
[2021-07-27 10:36] LABS: Absolute Lymphocyte Count 1.88 X10^3/uL (0.83-4.51); Absolute Neutrophil Count 3.7 X10^3/uL (2.0-7.7); Basophil# 0.03 X10^3/uL; Basophil% 0.5 % (0-1); Eosinophil# 0.09 X10^3/uL; Eosinophils% 1.5 % (0-5); Hematocrit 41.4 % (37-47); Hemoglobin 13.1 g/dL (12.0-15.0); Internal QC Validated? YES +Cl - CLEAR BKGD; Lymphocyte # 1.88 X10^3/ul (0.83-4.51); Lymphocyte % 30.4 % (19-41); Mean Corp Hgb Conc 31.6 g/dL (32-36); Mean Corpuscular Hgb 28.1 pg (27.0-32.0); Mean Corpuscular Volume 88.8 fL (81-99); Mean Platelet Vol. 9.5 fl (6.2-12.0); Monocyte# 0.42 X10^3/uL; Monocyte% 6.8 % (0-10); NRBC Flagged by Analyzer 0 % (0-5); Neutrophil # 3.67 X10^3/uL (2.7-7.7); Neutrophil % 59.3 % (47-70); Platelet Count 295 K/mm3 (150-450); Pregnancy, Urine Negative Negative; RBC Distribution Width CV 11.9 % (11.6-14.6); RBC Distribution Width SD 39.1 fl (35.1-43.9); Red Blood Count 4.66 M/mm3 (4.2-5.4); White Blood Count 6.2 K/mm3 (4.4-11.0)
--- NOTE | 2021-07-27 11:25 | CONE_PTH ---
PATIENT: ULISES GARCIA LOC: [facility] [place] U#:[id number] AGE/SX: 30/F ROOM: RE07/27/[address]: Dr. Milagros Tim MD : 1990 BED: DIS: 07/27/2021 SPEC #: [id number] RECD: 07/27/21 15:35 STATUS: LALA ALEJANDRO #: [id number] BILLY: 07/27/21 11:[address]: Milagros Tim DEPT: SURGICAL PATHOLOGY RECD BY: Jaky Veliz ENTERED: 07/28/21 09:37 SP TYPE: Leep Cone FLO DR: Dr. Robert Celeste, DO Tissues: A - Fallopian tube B - Endocervical C - UTERINE CERVIX LEEP Procedures: Surgery Specimen Level II Surgery Specimen Level IV Surgery Specimen Level V HEADER OPERATION: Laparoscopic salpingectomy, LEEP cone PRE-OP DIAGNOSIS: Sterilization TISSUE SUBMITTED: A ? Bilateral fallopian tubes, B ? Endocervical curettings, C ? Cervix, cone MICROSCOPIC DIAGNOSIS A. Right and left fallopian tubes, bilateral salpingectomies: Two complete segments of fallopian tubes with no pathologic change. B. Endocervix, curettings: Fragments of benign lower uterine endometrium and endocervix. C. Cervix, LEEP conization: Mild to moderate squamous dysplasia, MIRANDA I-II (HSIL). Squamous metaplasia and chronic inflammation. Margins of excision are free of dysplasia. See comment. AM:nik 07/29/2021 COMMENT C. A single detached fragment of squamous epithelium also contains moderate dysplasia. Results from immunohistochemistry ([id number]) for surrogate HPV marker (p16) will be reported separately. Case has been reviewed in consultation with Dr. Espinoza who concurs with the above diagnosis. IDC:SJ MICROSCOPIC DESCRIPTION Slides are reviewed. GROSS DESCRIPTION A - Received in fixative is one container labeled with the patient's name and designated bilateral fallopian tubes. The specimen consists of bilateral fallopian tubes including fimbrial ends measuring 5 cm in length and 0.5 cm in diameter and 4.5 cm in length and 0.5 cm in diameter. The fallopian tubes are not identified as right or left. Sections reveal unremarkable cut surfaces. [employer] sections are submitted in two cassettes with each cassette containing one fallopian tube. B - Received in fixative is one container labeled with the patient's name and designated endocervical curettings. The specimen consists of multiple fragments of hemorrhagic soft tissue that in aggregate measure 0.5 x 0.5 x 0.1 cm. The specimen is totally submitted in one cassette. C - Received in fixative is one container labeled with the patient's name and designated cervix, cone. The specimen consists of a previously opened piece of disla, indurated tissue consistent with LEEP conization measuring 3 x 2.5 x 0.9 cm. The specimen is presumed to be open at 12 o?clock position. No mucosal lesion is identified. Nonmucosal surface is inked black. The specimen is radially sectioned and submitted entirely in four cassettes as follows: 1 - 12 to 3 o?clock, 2 - 3 to 6 o?clock, 3 - 6 to 9 o?clock, 4??9 to 12 o?clock. / SJ:nik 07/28/2021 TC:3 CPT: 17676 x2, 63504, 88194
--- NOTE | 2021-07-27 12:08 | HP.PCM_ITS ---
History and Physical Date of Admission: 07/27/21 Vital Signs 06/22/21 10:56 Height 5 ft 2 in Weight: 196 lb 8 oz BMI 35.9 BP 138/88 H Intake Visit Reasons: 6wk pp, declined IUD Senior Benefits Specialist Required: No Is patient in pain?: No Allergies latex Allergy (Verified 06/22/21 10:57) Swelling oxycodone Allergy (Verified 06/22/21 10:57) Itching Medications prenat.vits,jose alberto,[id number] 1 tab PO QDAY 10/10/17 [History Confirmed 06/22/21] citalopram [Celexa] 20 mg PO DAILY 05/06/21 [History Confirmed 06/22/21] acetaminophen [Tylenol Extra Strength] 500 mg PO Q6H PRN #20 tab 05/15/21 [Rx Confirmed 06/22/21] : Yes PFSH Medical History (Updated 06/22/21 @ 11:[address] Milagros Tim MD) Anxiety Surgical History (Updated 06/22/21 @ 11:02 by Michaela Martinez) H/O lithotripsy History of cholecystectomy S/P ACL repair Family History Unknown Colon cancer Social History (Updated 06/22/21 @ 10:58 by Michaela Martinez) adopted: No household members: family housing: house number of children: 4 current occupational status: employed Smoking Status: Never smoker second hand exposure: No alcohol intake: never substance use type: does not use caffeine: Yes what type of physical activity do you participate in: none seatbelt use: always do you feel safe at home: Yes additional social history: [place]- Self Employed Patient works for [employer] Pregancy History 5 Elective abortions Hx Para 4 Spontaneous abortions 1 Hx # Term Pregnancies 4 Ectopic pregnancies Hx # Pregnancies Multiple births # of living children 4 Past Pregnancies Del. Date Name GA/Weeks Outcome Route Bth Weight Infant Gen Labor Lgth Anesthesia Del Locatn Provider FOB Unknown 2008 Aleks 38 live - full term 6lbs 15 oz Male 11 hours epidural [facility] AT 02/07/16 Felton 38 live - full term 7LBS 4OZ Male 3 hours epidural [facility] RR Lucas 05/27/18 Bowen 38 live - full term 7lbs 4oz Female 6 hours epidural [facility] SM Lucas 05/10/21 Servando 38 live - full term Female [facility] [place] Delivery Date: No notes to display Delivery Date: 02/07/16 Laceration: 2nd degree - perineal; lightly stained mecium Mary Ribera Delivery Date: 05/27/18 IOL decels, mild uterine atony was encountered but with bimanual massage and emptying the bladder bleeding was WNL nuchal cord x2 loose Mary Ribera Delivery Date: 05/10/21 IOL Elissa Ovalle Depression Screen PHQ-2/9 PHQ-2 Over the last 2 weeks, how often have you been bothered by any of the following problems? 1. Little interest or pleasure in doing things: not at all 2. Feeling down, depressed, or hopeless: not at all Total score: 0 Post HPI 6wk pp, declined IUD : Details: ULISES GARCIA is a 30 year old who presents for her post visit. wanting sterilization. Details: ULISES GARCIA is a 30 year old who presents for her post visit. ROS Const Reports system reviewed and no additional complaints, except as documented GI Reports system reviewed and no additional complaints, except as documented, Denies bloating, Denies constipation, Denies nausea and Denies vomiting Reports system reviewed and no additional complaints, except as documented, Denies abnormal vaginal bleeding, Denies pelvic pain, Denies sexual dysfunction, Denies urinary incontinence, Denies urinary hesitancy, Denies urinary urgency and Denies vaginal discharge Skin/Breast Reports system reviewed and no additional complaints, except as documented and Reports as per HPI Psych Reports as per HPI Exam Const General: cooperative, healthy appearing, comfortable and no acute distress HENPA Head: normal to inspection Neck Neck: normal visual inspection and no lymphadenopathy Thyroid: thyroid normal Chest Breast inspection: normal inspection of the breasts and normal inspection of the axillae Breast palpation: normal palpation of the breasts and normal palpation of the axillae Resp Effort & Inspection: normal respiratory effort GI Inspection: normal to inspection Palpation: soft, no hepatosplenomegaly and nontender General: bladder normal to palpation External Female Exam: normal external appearance and normal appearance of the urethra Urethra: normal appearance of the urethra Speculum Exam - Vagina: normal appearance of the vagina and normal vaginal discharge Speculum Exam - Cervix: normal appearance of the cervix Bimanual Exam- Vagina & Uterus: normal bimanual exam, uterine size normal, bladder normal to palpation, uterine shape normal and non-tender Bimanual Exam- Adnexa, other: normal adnexae and normal Pelvic Support: normal Skin General: no rashes or lesions noted Coding Level of Care Code No Charge Diagnoses care and examination Z39.2 Sterilization Z30.2 Assessment and Plan Assessment and Plan (1) care and examination: Status: Acute Plan - Dr. Milagros Tim MD: Cervical cancer screening: pap hpv pos, repeat pap done Contraceptive plans: fu for laparoscopic sterilization Complications: none Follow up for annual exams or sooner if indicated. (2) Sterilization: Status: Acute Comment: title 19 signed 06/22 plan leep due to mao III UPDATE- I have seen the patient and performed any clinically relevant updates to the history and physical exam. Milagros Tim MD
--- NOTE | 2021-07-27 12:59 | NURSING ---
Breast pump brought to patient and explained.
--- NOTE | 2021-07-27 13:20 | PCM.OPRPT ---
Problems Associated Problem List Diagnoses (1) MIRANDA II (cervical intraepithelial neoplasia II): (2) Sterilization: Report of Operation Pre-Operative Diagnosis: see problem list Post-Operative Diagnosis: same Surgery/Procedure Performed:: laparoscopic bilateral salpingectomy leep Description of Surgical Findings:: nl uterus tubes ovaries Type of Anesthesia: General and Local Specimen's removed: tubes cervix ecc Drains: none Estimated Blood Loss (mL): 50 Fluids Replaced: crystalloid Description of Procedure: Patient was taken in the operating room and was placed under general anesthesia was prepped and draped in normal sterile fashion in the dorsal lithotomy position. Bladder was drained of clear urine and SCDs were on preoperatively. Uterus was sounded and a uterine manipulator was placed after dilating. Attention was then paid to the abdominal portion of the procedure and the umbilicus was elevated with towel clamps and injected with Marcaine and after a 5 mm incision was made and the Veress needle was entered into the abdomen confirmed to be intra-abdominal with a low opening pressure of less than 5 mmHg. Abdomen was insufflated with CO2 gas and a 5 mm optical trocar was placed under direct visualization. A 5 mm port suprapubically was placed under direct visualization. Uterus was well visualized and bilateral fallopian tubes identified and bilateral tubes were elevated and transecting across the mesosalpinx and the attachment to the uterine corpus bilaterally the tubes were removed without complication. Excellent hemostasis was noted. Fallopian tubes were removed through the lower port site without complication. Liver and upper abdomen were visualized notably within normal limits and no other gross abnormalities were seen in the abdomen. All instruments removed from the abdomen after gas was desufflated. Port sites were closed with 3-0 Monocryl Steri's and op sites were applied. using a loop electrode the outer part of the cervix was removed including the squamocolumnar junction. Endocervical curettings were taken and the base of the cervix was cauterized around the borders and the base to obtain excellent hemostasis. Monsel's paste was placed. All instruments removed from the vagina and patient was awoken and taken recovery in stable condition. Grafts/Implants Used: none Complications none Admit VTE Documentation VTE Present on Admission: No VTE Mechan Device Prophylaxis: SCD's Multi Select Codes Urinary/Genital Urinary/Genital CPT Codes: 62954 LEEP [place] 04494 Laproscopic BS/O
--- NOTE | 2021-07-27 13:22 | DCINST_ITS ---
Discharge Instructions Diet Discharge Diet: No restrictions Activity Discharge Activity: Return to Normal Activity, May Not Drive (for 2 weeks or while taking narcotic pain meds.), May Shower and May Take a Tub Bath (in 7 days) May resume sexual activity in: 1 week Weight Bearing Status: Full weight bearing Dressing / Incision Call your doctor if your incision/area has: Continuous Slow Oozing, Sudden Increased Bleeding, Increased Pain/ Swelling, Increased Redness and Foul Smelling Discharge Call your doctor if you observe: Fever of 101 or Higher, Using more than 1 pad per hour, Shortness of breath, Chest pain and Uncontrolled pain Suture Line Care: Avoid Pulling/Pushing and Avoid Pinching/Bending Remove Dressing in: 1 week (if present) Cleanse incision/area with: Soap & Water and Keep Dressing Clean & Dry Follow Up Care When: Call to make an appointment with your doctor for a fu/incision check in 1- 2 weeks. Test Results: Test results from this visit will be discussed in further detail at your follow-up appointment, if applicable. Discharge Plan Admission Primary Reason for Your Visit: hysterectomy Attending Provider: Milagros Tim Primary Care Provider: Robert Celeste Discharge Orders/Prescriptions Prescriptions: New naproxen [naproxen] 500 MG tablet 500 mg PO BID PRN PRN (Reason: Pain) Qty: 30 RF: 1 Continued prenat.vits,jose alberto,[id number] [ Vitamin] tablet 1 tab PO QDAY RF: 0 citalopram [Celexa] 20 mg tablet 20 mg PO DAILY RF: 0 acetaminophen [Tylenol Extra Strength] 500 mg tablet 500 mg PO Q6H PRN (Reason: fever or pain) Qty: 20 RF: 0 amoxicillin-pot clavulanate 875-125 mg tablet 1 tab PO BID 10 Days Qty: 20 RF: 0 Referrals / Follow Up: Robert Celeste DO [Primary Care Provider] - Disposition Disposition (needs filled in before D/C Order can be placed): Home, Self Care
[2021-07-27] MEDS: Bupivacaine 0.25% 30 ML Vial (13:38)
[2021-07-27] MEDS: Iodine/Potassium Iodide 14ML Bottle 1 DRP TOPICAL (13:57)
[2021-07-27] MEDS: FERRIC SUBSULFATE 8 GM SOLN (13:57)
[2021-07-27 14:11] VITALS: BP 128/82; BP 136/70; PULSE 118; RESP 16; TEMP 36.3; O2SAT 100
[2021-07-27 14:26] VITALS: BP 128/82; BP 149/86; PULSE 102; RESP 16; O2SAT 100
[2021-07-27 14:29] VITALS: BP 123/91; BP 128/82; PULSE 99; RESP 16; TEMP 35.9; O2SAT 96
[2021-07-27 15:29] VITALS: BP 125/86; BP 128/82; PULSE 77; RESP 16; TEMP 36.4; O2SAT 97
== END 2021-07-27 23:59 | disposition home or self-care (01) ==
LOC: SDC 10:01 → AC 10:01
PROVIDERS: PCP Student in an Organized Health Care Education/Training Program; Referring Provider Obstetrics & Gynecology; Visit Provider Obstetrics & Gynecology
PROC: (CPT 58661; principal; 2021-07-27 11:10)
DX: N87.1 Moderate cervical dysplasia (principal); Z30.2 Encounter for sterilization; F41.9 Anxiety disorder, unspecified; Z79.899 Other long term (current) drug therapy
CPT/HCPCS: 00940; 57522; 58661; 81025; 85025; 86850; 86900; 86901; 87426; 88302; 88305; 88307; 88341; 88342; C9803; J7120; J2405

== ENCOUNTER → 2022-01-11 | Outpatient (CLI) | payer SELFPAY | END | disposition home or self-care (01) | PROVIDERS: PCP Student in an Organized Health Care Education/Training Program; Referring Provider Nurse Practitioner Women's Health; Visit Provider Nurse Practitioner Women's Health | DX: R30.0 Dysuria (principal) | CPT/HCPCS: 87086; 87088 ==

== ENCOUNTER 2022-08-03 17:03 | Emergency (ER) | payer SELFPAY ==
[2022-08-03 17:04] VITALS: BP 136/88; PULSE 85; RESP 18; TEMP 35.6; O2SAT 94; BMI 34.2
[2022-08-03 17:32] LABS: White Blood Cells 0 SEEN /hpf (0-5)
[2022-08-03 17:47] LABS: Absolute Neutrophil Count 5.2 X10^3/uL (2.0-7.7); Basophil# 0.01 X10^3/uL; Basophil% 0.1 % (0-1); Eosinophil# 0.08 X10^3/uL; Hematocrit 42.5 % (37-47); Hemoglobin 14.2 g/dL (12.0-15.0); Lymphocyte % 29.8 % (19-41); Mean Corp Hgb Conc 33.4 g/dL (32-36); Mean Corpuscular Hgb 28.6 pg (27.0-32.0); Mean Corpuscular Volume 85.7 fL (81-99); Mean Platelet Vol. 10.1 fl (6.2-12.0); Monocyte# 0.61 X10^3/uL; Monocyte% 7.3 % (0-10); NRBC Flagged by Analyzer 0 % (0-5); Neutrophil # 5.17 X10^3/uL (2.7-7.7); Neutrophil % 61.7 % (47-70); Platelet Count 275 K/mm3 (150-450); RBC Distribution Width CV 12.3 % (11.6-14.6); RBC Distribution Width SD 38.7 fl (35.1-43.9); Red Blood Count 4.96 M/mm3 (4.2-5.4); White Blood Count 8.4 K/mm3 (4.4-11.0)
[2022-08-03 17:52] LABS: Color, Urine Yellow (Yellow); Glucose, Dipstick Normal (Normal); Ketone-Dipstick Negative (Negative); Urine Bilirubin Dipstick Negative (Negative); Urine Clarity Clear (Clear)
[2022-08-03 17:53] LABS: Leukocyte Esterase-Dipstick 25 /ul (Negative); Nitrite-Dipstick Negative (Negative); Occult Blood-Urine 250 /ul (Negative); Protein-Dipstick 15 mg/dl (Negative); Urine Urobilinogen Normal (Normal)
[2022-08-03 17:57] LABS: Bacteria 1+ /hpf (None Seen); Mucous, Urine 2+ /hpf (<or=2+); Red Blood Cells-Urine 5-10 SEEN /hpf (0-5); Squamous Epithelial Cells - UA 0-5 SEEN /hpf (5-10)
[2022-08-03 18:02] LABS: Anion Gap 6 (5-15); BUN 13 mg/dL (7-18); Chloride 109 mmol/L (98-107); Creatinine, Serum 0.76 mg/dL (0.55-1.02); EST Glomerular Filtration Rate 93 mL/min (>60); Est Glom Filt Rate - Afr Amer 112 mL/min (>60); Estimated Creatinine Clearance 80.19 ml/min; Glucose 101 mg/dL (74-106); Potassium 3.8 mmol/L (3.5-5.1); Sodium Level 140 mmol/L (136-145)
[2022-08-03 18:14] LABS: Internal QC Validated? YES +Cl - CLEAR BKGD; Pregnancy, Serum, hCG Quali. NEGATIVE Negative
[2022-08-03 19:24] VITALS: BP 133/93; PULSE 89
--- NOTE | 2022-08-03 19:38 | CT_ITS ---
INDICATION: flank pain, hx kidney stones EXAMINATION: CT Abdomen And Pelvis W/O Contrast Injection TECHNIQUE: Helically acquired images were obtained of the abdomen and pelvis without the use of IV contrast. A radiation dose optimization technique was used for this scan. Oral contrast: None. COMPARISON: 05/15/2021 FINDINGS: Evaluation of the solid organs and vascular structures is limited without intravenous contrast. Visualized lung bases: Unremarkable Liver: Unremarkable Gallbladder: Unremarkable Spleen: Unremarkable Pancreas: Unremarkable Adrenal Glands: Unremarkable Kidneys: Unremarkable Vasculature: Unremarkable GI Tract: Unremarkable Lymphadenopathy: None Peritoneum: No ascites. Bladder: Unremarkable Reproductive organs: Unremarkable Bones/Soft tissues: No suspicious osseous or soft tissue lesions CT/Abdomen/Pelvis without Cont IMPRESSION: No acute abnormalities in the abdomen or pelvis. Specifically, no evidence of renal or ureteral stones. Electronically Signed: Jaxon Baez MD at 20:08 EST ,
[2022-08-03 19:52] LABS: Lipase 319 U/L (73-393)
--- NOTE | 2022-08-03 20:06 | EDS_ITS ---
HPI History of Present Illness Chief Complaint: Flank Pain Informant: patient Narrative Narrative: 31-year-old female presenting with right upper quadrant pain and right flank pain. She states this has been intermittent for the past month. She has a previous history of cholecystectomy. States this feels similar to before her gallbladder was removed. She also has history of kidney stones. Denies urinary complaints. She has been constipated but had a bowel movement on Monday. Denies vomiting. 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) Syncope Home Medications prenat.vits,jose alberto,[id number]-lqwy-moirk ( Vitamin tablet) 1 tab PO QDAY 10/10/17 [History Last Taken 05/13/21 10:00] citalopram 20 mg tablet (Celexa) 20 mg PO DAILY Check with primary doctor 05/06/21 [History Last Taken 05/13/21 10:00] dicyclomine 20 mg tablet 20 mg PO TID PRN abd pain 7 days #20 tabs 08/03/22 [Rx Last Taken Unknown] Allergy/AdvReac Type Severity Reaction Status Date / Time latex Allergy Swelling Verified 08/03/22 17:04 oxycodone Allergy Itching Verified 08/03/22 17:04 Family History Unknown Colon cancer Surgical History H/O lithotripsy History of bilateral salpingectomy History of cholecystectomy S/P ACL repair Social History adopted: No household members: family housing: house number of children: 4 current occupational status: employed Smoking Status: Never smoker second hand exposure: No alcohol intake: never substance use type: does not use caffeine: Yes what type of physical activity do you participate in: none seatbelt use: always do you feel safe at home: Yes additional social history: [place]- Self Employed Patient works for [employer] ROS ROS ED Constitutional Constitutional ED: Denies fever(s) Eyes Eyes: Denies change in vision ENT ENT ED: Denies rhinorrhea or sore throat Cardiovascular Cardiovascular: Denies chest pain or palpitations Respiratory/Chest Respiratory/Chest: Denies cough or dyspnea Gastrointestinal Gastrointestinal: Reports abdominal pain and nausea; Denies diarrhea or vomiting Genitourinary Genitourinary ED: Denies dysuria Musculoskeletal Musculoskeletal: Denies myalgias Integumentary Denies rash Neurologic Neurologic: Denies headache(s) Psychiatric Psychiatric: Denies suicidal thoughts EXAM Physical Exam Const Vital Signs: 08/03/22 17:04 08/03/22 19:24 Temperature 96.1 F L Temperature Source Temporal Pulse Rate 85 89 Respiratory Rate 18 Blood Pressure 136/88 H 133/93 H Blood Pressure Mean 104 106 Pulse Ox 94 Oxygen Delivery Method Room Air Positive well nourished and well developed General Appearance ED: well developed HEENT Reports normocephalic and head/scalp atraumatic Eyes PERRL and EOMs intact bilaterally Neck supple General: Negative for tenderness Chest Wall inspection of chest normal Resp normal respiratory effort and clear to auscultation bilaterally Cardio regular rate and regular rhythm GI non-distended Palpation: soft and tender RUQ; Negative for guarding or rebound tenderness present no CVA tenderness Extremity normal to inspection Neuro oriented x3 Sensorium / Orientation: alert Psych mental status grossly normal Skin no rashes or lesions noted MDM MDM MDM Narrative Medical decision making narrative: CBC shows a normal white count. Chemistries unremarkable. Lipase is normal. negative. Urinalysis shows 0 white blood cells, 5-10 red blood cells. Due to history of kidney stones with hematuria, CT abdomen pelvis was obtained. CT abdomen pelvis shows no acute abnormalities. No renal or ureteral stones. Patient is resting comfortably on reevaluation. She is given prescription for Bentyl and referral to GI. Advised to return to the ED for worsening complaints. Lab Data Attestation: I reviewed the patient's lab results. Labs: Laboratory Results - last 24 hr 08/03/22 08/03/22 08/03/22 17:17 17:20 17:20 WBC 8.4 RBC 4.96 Hgb 14.2 Hct 42.5 MCV 85.7 MCH 28.6 MCHC 33.4 RDW Std Deviation 38.7 RDW Coeff of Seferino 12.3 Plt Count 275 MPV 10.1 Immature Gran % (Auto) 0.100 Neut % (Auto) 61.7 Lymph % (Auto) 29.8 [place] % (Auto) 7.3 Eos % (Auto) 1.0 Baso % (Auto) 0.1 Absolute Neuts (auto) 5.2 Absolute Lymphs (auto) 2.50 Nucleated RBC % 0 Sodium Potassium Chloride Carbon Dioxide Anion Gap BUN Creatinine Estim Creat Clear Calc Est GFR (MDRD) Af Amer Est GFR (MDRD) Non-Af BUN/Creatinine Ratio Glucose Calcium Lipase Serum , Qual NEGATIVE Urine Color Yellow Urine Clarity Clear Urine pH 6.0 Ur Specific [place] 1.020 Urine Protein 15 H Urine Glucose (UA) Normal Urine Ketones Negative Urine Occult Blood 250 Urine Nitrite Negative Urine Bilirubin Negative Urine Urobilinogen Normal Ur Leukocyte Esterase 25 H Urine RBC 5-10 SEEN Urine WBC 0 SEEN Ur Squamous Epith Cells 0-5 SEEN Urine Bacteria 1+ Urine Mucus 2+ 08/03/22 08/03/22 17:20 17:20 WBC RBC Hgb Hct MCV MCH MCHC RDW Std Deviation RDW Coeff of Seferino Plt Count MPV Immature Gran % (Auto) Neut % (Auto) Lymph % (Auto) [place] % (Auto) Eos % (Auto) Baso % (Auto) Absolute Neuts (auto) Absolute Lymphs (auto) Nucleated RBC % Sodium 140 Potassium 3.8 Chloride 109 H Carbon Dioxide 25.0 Anion Gap 6 BUN 13 Creatinine 0.76 Estim Creat Clear Calc 80.19 Est GFR (MDRD) Af Amer 112 Est GFR (MDRD) Non-Af 93 BUN/Creatinine Ratio 17.0 Glucose 101 Calcium 9.0 Lipase 319 Serum , Qual Urine Color Urine Clarity Urine pH Ur Specific [place] Urine Protein Urine Glucose (UA) Urine Ketones Urine Occult Blood Urine Nitrite Urine Bilirubin Urine Urobilinogen Ur Leukocyte Esterase Urine RBC Urine WBC Ur Squamous Epith Cells Urine Bacteria Urine Mucus Radiography Diagnostic Testing: Clinical Impression(s) from Imaging Studies Abdomen/Pelvis CT 08/03/22 19:38 IMPRESSION: No acute abnormalities in the abdomen or pelvis. Specifically, no evidence of renal or ureteral stones. Electronically Signed: Jaxon Baez MD at 20:08 EST , Discharge Plan Triage Chief Complaint: Flank Pain Other Complaint: Abd Pain ED Provider: Radha Tong Dx/Rx/DC Orders Clinical Impression: Abdominal pain Instructions: Abdominal Pain Prescriptions: New dicyclomine 20 mg tablet 20 mg PO TID PRN (Reason: abd pain) 7 Days Qty: 20 0RF No Action prenat.vits,jose alberto,[id number]-nvnru [ Vitamin] tablet 1 tab PO QDAY citalopram [Celexa] 20 mg tablet 20 mg PO DAILY Primary Care Provider: Robert Celeste Referrals: Robert Celeste DO [Primary Care Provider] - Friend,DO Balbir [Med Staff - Active Staff] - Disposition Disposition: Home, Self Care
== END 2022-08-03 21:00 | disposition home or self-care (01) ==
PROVIDERS: Emergency Provider Emergency Medicine; PCP Student in an Organized Health Care Education/Training Program; Visit Provider Emergency Medicine
DX: R10.11 Right upper quadrant pain (principal)
CPT/HCPCS: 74176; 80048; 81001; 83690; 84703; 85025; 99283; A4216

== ENCOUNTER → 2022-08-11 | Outpatient (CLI) | payer SELFPAY ==
[2022-08-11 11:42] LABS: T4 Free Direct 1.25 ng/dL (0.76-1.46); Thyroid Stim Hormone (TSH) 1.29 uIU/mL (0.358-3.74)
[2022-08-18 17:47] LABS: HPV APTIMA, High Risk Negative (Negative)
== END | disposition home or self-care (01) ==
PROVIDERS: PCP Student in an Organized Health Care Education/Training Program; Referring Provider Obstetrics & Gynecology; Visit Provider Obstetrics & Gynecology
DX: Z12.4 Encounter for screening for malignant neoplasm of cervix (principal); E01.0 Iodine-deficiency related diffuse (endemic) goiter
CPT/HCPCS: 36415; 84439; 84443; 87624; 88175; G0145

== ENCOUNTER → 2022-08-19 | Outpatient (CLI) | payer SELFPAY ==
--- NOTE | 2022-08-19 13:08 | US_ITS ---
STUDY: THYROID ULTRASOUND REASON FOR EXAM: Female, 32 years old. Thyromegaly. TECHNIQUE: Ultrasound evaluation of the thyroid was performed with real-time and static bowers-scale imaging. COMPARISON: Comparison is made with prior study 10/12/2017. FINDINGS: RIGHT LOBE: The right lobe of the thyroid gland is enlarged and measures 5.2 cm x 2.2 cm x 1.8 cm. There is a heterogeneous echotexture. Multiple small colloid cysts are seen. The largest measures 5 mm x 4 mm x 3 mm. LEFT LOBE: The left lobe of the thyroid gland measures 4.6 cm x 1.8 cm x 1.6 cm. There is a heterogeneous echotexture. Multiple small colloid cysts are seen. The largest is in the lower pole and measures 8 mm x 8 mm x 6 mm. ISTHMUS: The isthmus measures 3 mm. The regional lymph nodes are normal. US/Thyroid IMPRESSION: Enlargement of the right lobe of the thyroid with bilateral subcentimeter colloid cysts. Electronically Signed: Jony Alexander MD at 14:32 EST ,
== END | disposition home or self-care (01) ==
PROVIDERS: PCP Student in an Organized Health Care Education/Training Program; Visit Provider Obstetrics & Gynecology
DX: E01.0 Iodine-deficiency related diffuse (endemic) goiter (principal)
CPT/HCPCS: 76536

== ENCOUNTER → 2023-07-31 | Outpatient (CLI) | payer SELFPAY ==
--- OUTSIDE RECORDS SUMMARY | 2023-07-31 17:21 | XMS RPT_ITS | CCD ---
Author Name Unknown Address [address] [place] [address] Organization [facility] Care Team Providers Care Machine Dyer Name Role Phone Robert Celeste DO Primary Care Provider ROBERT CELESTE Primary Care Unavailable ROBERT CELESTE Primary Care Unavailable ROBERT CELESTE Primary Care Unavailable Allergies Allergy Classification Reported Allergen(s) Allergy Type Date of Onset Reaction(s) Facility (7 sources) Latex; Translations: [LATEX] Drug Allergy 09-01-2010 Swelling [facility] Work Phone: (7 sources) PARoxetine; Translations: [PAROXETINE HCL] Drug Allergy 07-15-2011 Intolerance [facility] Medications Current Medications Medication Drug Class(es) Dates Sig (Normalized) Sig (Original) amoxicillin 875 mg / clavulanate 125 mg oral tablet (1 source) Penicillin-class Antibacterial Start: 05-24-2023 End: 05-29-2023 take 1 tablet by mouth twice daily amoxicillin-clav ulanate potassium (AUGMENTIN) 875-125 mg per tablet Indications: Acute non-recurrent maxillary sinusitis Take 1 tablet by mouth two times a day for 5 days. 10 tablet 0 05/24/2023 05/29/2023 Active Completed/Discontinued Medications Medication Drug Class(es) Dates Sig (Normalized) Sig (Original) [id number] 200 actuat albuterol 0.09 mg/actuat metered dose inhaler (6 sources) beta2-Adrenergic Agonist Start: 09-23-2014 take 2 puff(s) by inhalation every six hours as needed for wheezing albuterol HFA (PROVENTIL HFA, VENTOLIN HFA) 90 mcg/actuation inhaler Indications: Medication refill Inhale 2 Puffs as instructed every 6 hours as needed for Wheezing/Shortnes s of Breath. 1 Inhaler 2 09/23/2014 Active Problems Active Problems Problem Classification Problem Date Documented Da te Episodic/Chronic Abdominal pain (3 sources) Flank pain; Translations: [Unspecified abdominal pain] Episodic Anxiety disorders (7 sources) Generalized anxiety disorder; Translations: [Generalized anxiety disorder] Onset: 06-28-2011 Chronic Headache; including migraine (6 sources) Migraine with aura; Translations: [Migraine with aura, not intractable, without status migrainosus] Onset: 02-27-2012 02-27-2012 Chronic Other upper respiratory disease (1 source) Hoarse; Translations: [Dysphonia] Episodic Other upper respiratory infections (3 sources) Upper respiratory infection; Translations: [Acute upper respiratory infection, unspecified] Episodic Past or Other Problems Problem Classification Problem Date Documented Da te Episodic/Chronic Calculus of urinary tract (6 sources) History of calculus of kidney; Translations: [Personal history of urinary calculi] Onset: 10-05-2017 10-05-2017 Episodic Other complications of (6 sources) High risk ; Translations: [Supervision of other high risk pregnancies, first trimester] Onset: 07-13-2015 07-05-2021 Episodic Other complications of (6 sources) RhD negative; Translations: [Other specified related conditions, unspecified trimester] Onset: 07-14-2015 07-14-2015 Episodic Other complications of (6 sources) Complication of , childbirth and/or the puerperium; Translations: [Other specified related conditions, unspecified trimester] Onset: 10-05-2017 10-05-2017 Episodic Screening and history of mental health and substance abuse codes (6 sources) H/O: anxiety state; Translations: [Personal history of other mental and behavioral disorders] Onset: 10-05-2017 10-05-2017 Episodic Results Test Name Value Interpretation Reference Range Facil ity Vital Signs Date Time Vital Sign Value Performing Clinician Faci lity 05-24-2023 07:43-0500 Body temperature 98.2 [degF] Kiko Llanes MD Work Phone: [facility] 05-24-2023 07:43-0500 Body weight 44.54 kg Kiko Llanes MD Work Phone: [facility] 05-24-2023 07:43-0500 Diastolic blood pressure 68 mm[Hg] Kiko Llanes MD Work Phone: [facility] 05-24-2023 07:43-0500 Heart rate 72 /min Kiko Llanes MD Work Phone: [facility] 05-24-2023 07:43-0500 Respiratory rate 16 /min Kiko Llanes MD Work Phone: [facility] 05-24-2023 07:43-0500 SaO2% (BldA) [Mass fraction] 98 % Kiko Llanes MD Work Phone: [facility] 05-24-2023 07:43-0500 Systolic blood pressure 118 mm[Hg] Kiko Llanes MD Work Phone: [facility] 06-01-2022 10:06-0500 Body temperature 96.91 [degF] Jaquelin Athy PA-C Work Phone: [facility] 06-01-2022 10:06-0500 Body weight 83.46 kg Jaquelin Athy PA-C Work Phone: [facility] 06-01-2022 10:06-0500 Diastolic blood pressure 68 mm[Hg] Jaquelin Athy PA-C Work Phone: [facility] 06-01-2022 10:06-0500 Heart rate 100 /min Jaquelin Athy PA-C Work Phone: [facility] 06-01-2022 10:06-0500 Respiratory rate 18 /min Jaquelin Athy PA-C Work Phone: [facility] 06-01-2022 10:06-0500 SaO2% (BldA) [Mass fraction] 96 % Jaquelin Athy PA-C Work Phone: [facility] 06-01-2022 10:06-0500 Systolic blood pressure 122 mm[Hg] Jaquelin Athy PA-C Work Phone: [facility] 05-29-2022 09:26-0500 Body temperature 98.49 [degF] Jessica Fung APRN.CNP Work Phone: [facility] 05-29-2022 09:26-0500 Body weight 84.1 kg Jessica Antonieta PROMOTIONS FIRM ACCOUNTS MANAGER.SIMPLEX PRINTER INSTALLER Work Phone: [facility] 05-29-2022 09:26-0500 Diastolic blood pressure 82 mm[Hg] Jessica Antonieta [employer]OMOTIONS FIRM ACCOUNTS MANAGER.SIMPLEX PRINTER INSTALLER Work Phone: [facility] 05-29-2022 09:26-0500 Heart rate 112 /min Jessica Antonieta PROMOTIONS FIRM ACCOUNTS MANAGER.SIMPLEX PRINTER INSTALLER Work Phone: [facility] 05-29-2022 09:26-0500 Respiratory rate 18 /min Jessica Antonieta PROMOTIONS FIRM ACCOUNTS MANAGER.SIMPLEX PRINTER INSTALLER Work Phone: [facility] 05-29-2022 09:26-0500 SaO2% (BldA) [Mass fraction] 98 % Jessica Antonieta PROMOTIONS FIRM ACCOUNTS MANAGER.SIMPLEX PRINTER INSTALLER Work Phone: [facility] 05-29-2022 09:26-0500 Systolic blood pressure 132 mm[Hg] Jessica Antonieta PROMOTIONS FIRM ACCOUNTS MANAGER.SIMPLEX PRINTER INSTALLER Work Phone: [facility] 05-02-2022 10:24-0400 Body temperature 97.7 [degF] Moon Zurawick PROMOTIONS FIRM ACCOUNTS MANAGER.SIMPLEX PRINTER INSTALLER Work Phone: [facility] 05-02-2022 10:24-0400 Body weight 84.73 kg Moon Zurawick PROMOTIONS FIRM ACCOUNTS MANAGER.SIMPLEX PRINTER INSTALLER Work Phone: [facility] 05-02-2022 10:24-0400 Diastolic blood pressure 68 mm[Hg] Moon Zurawick PROMOTIONS FIRM ACCOUNTS MANAGER.SIMPLEX PRINTER INSTALLER Work Phone: [facility] 05-02-2022 10:24-0400 Heart rate 86 /min Moon Zurawick PROMOTIONS FIRM ACCOUNTS MANAGER.SIMPLEX PRINTER INSTALLER Work Phone: [facility] 05-02-2022 10:24-0400 SaO2% (BldA) [Mass fraction] 98 % Moon Zurawick PROMOTIONS FIRM ACCOUNTS MANAGER.SIMPLEX PRINTER INSTALLER Work Phone: [facility] 05-02-2022 10:24-0400 Systolic blood pressure 110 mm[Hg] Moon Zurawick PROMOTIONS FIRM ACCOUNTS MANAGER.SIMPLEX PRINTER INSTALLER Work Phone: [facility] Encounters Encounter Date Encounter Type Care Provider Facility Start: 05-24-2023 End: 05-24-2023 ambulatory ROBERT CELESTE Facility:[facility] Start: 05-24-2023 End: 05-24-2023 Patient encounter procedure Kiko Llanes MD Work Phone: [facility] Procedures Date Procedure Procedure Detail Performing Clinician Start: 05-02-2022 Ct abdomen & pelvis w/o contrast material Moon Boyle [employer]OMOTIONS FIRM ACCOUNTS MANAGER.SIMPLEX PRINTER INSTALLER Work Phone: Start: 05-02-2022 Urnls dip stick/tabl et rgnt auto w/o microscopy Moon Tom [employer]OMOTIONS FIRM ACCOUNTS MANAGER.SIMPLEX PRINTER INSTALLER Work Phone: Plan of Treatment Date Care Activity Detail Author Start: 03-07-2028 Urine microalbumin profile DTa P,Tdap,Td Vaccine (7 - Td or Tdap) [facility] Start: 12-01-2025 Urine microalbumin profile DTA P,TDAP,TD (5 - Td or Tdap) [facility] Start: 03-10-2023 Influenza vaccination Influenza Vacc ine (#1) [facility] Start: 01-06-2023 Influenza vaccination INFLUENZA (#1) [facility] Immunizations Immunization Date Immunization Notes Care Provider Awais devlin 09-26-2016 influenza virus vaccine, unspecified formulation Ct (I-Stat) Work Phone: [facility] 12-02-2015 RHO(D) immune globul in- IV or IM Moon Zurawick [employer]OMOTIONS FIRM ACCOUNTS MANAGER.SIMPLEX PRINTER INSTALLER Work Phone: [facility] Work Phone: 12-02-2015 tetanus toxoid, redu hannah diphtheria toxoid, and acellular pertussis vaccine, adsorbed Moon Zurawick [employer]OMOTIONS FIRM ACCOUNTS MANAGER.SIMPLEX PRINTER INSTALLER Work Phone: [facility] Work Phone: 08-20-2008 RHO(D) immune globul in- IV or IM Moon Zurawick [employer]OMOTIONS FIRM ACCOUNTS MANAGER.SIMPLEX PRINTER INSTALLER Work Phone: [facility] 03-02-1995 diphtheria, tetanus toxoids and acellular pertussis vaccine Moon Zurawick PROMOTIONS FIRM ACCOUNTS MANAGER.SIMPLEX PRINTER INSTALLER Work Phone: [facility] 03-02-1995 trivalent poliovirus vaccine, live, oral Moon Zurawick PROMOTIONS FIRM ACCOUNTS MANAGER.SIMPLEX PRINTER INSTALLER Work Phone: [facility] 11-08-1994 diphtheria, tetanus toxoids and acellular pertussis vaccine Moon Zurawick PROMOTIONS FIRM ACCOUNTS MANAGER.SIMPLEX PRINTER INSTALLER Work Phone: [facility] 06-13-1991 haemophilus influenz ae type b vaccine, HbOC conjugate Moon Zurawick PROMOTIONS FIRM ACCOUNTS MANAGER.SIMPLEX PRINTER INSTALLER Work Phone: [facility] 06-13-1991 measles, mumps and rubella virus vaccine Moon Zurawick PROMOTIONS FIRM ACCOUNTS MANAGER.SIMPLEX PRINTER INSTALLER Work Phone: [facility] 04-26-1990 diphtheria, tetanus toxoids and acellular pertussis vaccine Moon Zurawick PROMOTIONS FIRM ACCOUNTS MANAGER.SIMPLEX PRINTER INSTALLER Work Phone: [facility] 04-26-1990 trivalent poliovirus vaccine, live, oral Moon Zurawick PROMOTIONS FIRM ACCOUNTS MANAGER.SIMPLEX PRINTER INSTALLER Work Phone: [facility] 02-08-1990 diphtheria, tetanus toxoids and acellular pertussis vaccine Moon Zurawick PROMOTIONS FIRM ACCOUNTS MANAGER.SIMPLEX PRINTER INSTALLER Work Phone: [facility] 02-08-1990 trivalent poliovirus vaccine, live, oral Moon Zurawick PROMOTIONS FIRM ACCOUNTS MANAGER.[facility] Work Phone: [facility] Social History Date Type Detail Facility Tobacco smoking status NHIS Never smoked tobacco [facility] Start: 05-02-2022 End: 05-24-2023 Alcohol intake Current non-drinker of alcohol (finding) [facility] Start: 01-13-2020 History SDOH Social Connections Phone 98 [facility] Start: 01-13-2020 History SDOH Social Connections Membership 2 [facility] Start: 01-13-2020 History SDOH Social Connections Meetings 1 [facility] Start: 01-13-2020 History SDOH Physica l Activity DPW 3 [facility] Start: 1990 Sex Assigned At Not on file [facility] Start: 04-22-2022 End: 05-02-2022 Exposure to SARS-CoV-2 (event) Not sure [facility] Start: 01-13-2020 End: 06-15-2020 [facility] Start: 01-13-2020 End: 06-15-2020 Social connection and isolation panel [facility] In a typical week, h ow many times do you talk on the telephone with family, friends, or neighbors? Patient refused [facility] Do you belong to any clubs or organizations such as mu-ism groups, unions, fraBe Spotted or athletic groups, or school groups? No [facility] Are you now , , , , never or living with a partner? Refused [facility] Do you feel stress - tense, restless, nervous, or anxious, or unable to sleep at night because your mind is troubled all the time - these days [OSQ] Only a little [facility] Clinical Notes 04-03-2013 to 05-24-2023 Patient InstructionsKiko Llanes MD - 05/24/2023 7:47 AM César Soriano PA-C - 06/01/2022 2:45 PM ESTPatient InstructionsJessica Fung APRN.CNP - 05/29/2022 9:32 AM EST Note Date & Type Note Facility 05-24-2023 Note HNO ID: [id number] Author: Kiko Llanes MD Service: ? Author Type: Physician Type: Progress Notes Filed: 05/24/2023 8:01 AM Note Text: Patient presents with: Sinus Problem: Sinus pain, preassure headaches x1 week HPI: Feeling sick for 1 week. Initial URI, now mostly right sinus pain. Positive symptoms: Sinus pressure (right cheek, radiates into the teeth), Headache, resolved Cough, improved Sore throat, Earache, Nasal Congestion, Rhinorrhea, Negative symptoms: Fever, OTC: Tylenol MEDICATIONS: Current Outpatient Medications Medication Sig albuterol HFA (PROVENTIL HFA, VENTOLIN HFA) 90 mcg/actuation inhaler Inhale 2 Puffs as instructed every 6 hours as needed for Wheezing/Shortness of Breath. Tamdvsmm-Cj-Khd-Fe-FA tab Take one(1) tablet daily. No current facility-administered medications for this visit. ALLERGIES: ALLERGIES Allergen Reactions Latex Swelling SWELLING WITH CONDOM USE Paxil [Paroxetine H* Intolerance Didn't like how made her feel. VITALS: BP 118/68 Pulse 72 Temp 36.8 ?C (98.2 ?F) Resp 16 Wt 44.5 kg (98 lb 3.2 oz) LMP 11/06/2018 SpO2 98% BMI 18.55 kg/m? PHYSICAL EXAM: GEN: Pleasant, in no acute distress. HEENT: PERRL, EOMI, conjunctiva clear Ears: canals clear. TMs without erythema, bulge, or effusion Sinuses: non-tender frontal sinus, tender right maxillary sinus Throat: moist mucous membranes, no erythema, no exudate Neck: supple, no thyromegaly, no lymphadenopathy HEART: regular rate and rhythm, no murmurs LUNGS: clear to auscultation, no wheezes or crackles, no increased WOB ASSESSMENT/PLAN: 1. Acute non-recurrent maxillary sinusitis - ICD9: 461.0, ICD10: J01.00 Secondary bacterial sinusitis. - AMOXICILLIN 875 MG-POTASSIUM CLAVULANATE 125 MG TABLET Printed saline recipe for neti pot irrigation. Kiko Llanes MD [facility] 05-24-2023 Instructions Kiko Llanes MD - 05/24/2023 7:57 AM EST NASAL SALINE IRRIGATION Sinus rinses can help with the nasal congestion and discomfort associated with sinusitis. They can clear or thin excessive mucus, remove crusting, and even remove allergy causing particles such as pollen from the nose. You can purchase commercially prepared salt mixtures or prepare your own rinse with the recipe below: INSTRUCTIONS FOR THE PREPARATION OF ISOTONIC NASAL IRRIGATION SOLUTION Fill one bottle with 8 ounces of distilled water. If you use tap water, boil it first and let it cool to room temperature. Add 1/2 teaspoon non-iodized table salt. Add 1/2 teaspoon baking soda. Mix well until dissolved. Irrigate each nostril with solution Use a commercial squeeze bottle or bulb syringe. Use of the bottle or one full syringe in each nostril. Squeeze saline into the upper nostril gently with your head rotated and tilted down and over a sink. Breathe through your mouth. The saline solution should come out the other nostril. A small amount may get into your mouth. Repeat the process with the other nostril. You may use these salt water rinses one to four times a day. If your nose is severely blocked do not use rinses. If you experience pain, nose bleeds, or other difficulties with the rinses, DO NOT use them. Contact your health care provider with any problems. documented in this encounter [facility] 05-24-2023 History of Presen t illness Narrative Patient presents with: Sinus Problem: Sinus pain, preassure headaches x1 week HPI: Feeling sick for 1 week. Initial URI, now mostly right sinus pain. Positive symptoms: Sinus pressure (right cheek, radiates into the teeth), Headache, resolved Cough, improved Sore throat, Earache, Nasal Congestion, Rhinorrhea, Negative symptoms: Fever, OTC: Tylenol MEDICATIONS: Current Outpatient Medications Medication Sig albuterol HFA (PROVENTIL HFA, VENTOLIN HFA) 90 mcg/actuation inhaler Inhale 2 Puffs as instructed every 6 hours as needed for Wheezing/Shortness of Breath. Gvdyjqgn-Nz-Ecu-Fe-FA tab Take one(1) tablet daily. No current facility-administered medications for this visit. ALLERGIES: ALLERGIES Allergen Reactions Latex Swelling SWELLING WITH CONDOM USE Paxil [Paroxetine H* Intolerance Didn't like how made her feel. VITALS: BP 118/68 Pulse 72 Temp 36.8 C (98.2 F) Resp 16 Wt 44.5 kg (98 lb 3.2 oz) LMP 11/06/2018 SpO2 98% BMI 18.55 kg/m PHYSICAL EXAM: GEN: Pleasant, in no acute distress. HEENT: PERRL, EOMI, conjunctiva clear Ears: canals clear. TMs without erythema, bulge, or effusion Sinuses: non-tender frontal sinus, tender right maxillary sinus Throat: moist mucous membranes, no erythema, no exudate Neck: supple, no thyromegaly, no lymphadenopathy HEART: regular rate and rhythm, no murmurs LUNGS: clear to auscultation, no wheezes or crackles, no increased WOB ASSESSMENT/PLAN: 1. Acute non-recurrent maxillary sinusitis - ICD9: 461.0, ICD10: J01.00 Secondary bacterial sinusitis. - AMOXICILLIN 875 MG-POTASSIUM CLAVULANATE 125 MG TABLET Printed saline recipe for neti pot irrigation. Kiko Llanes MD documented in this encounter [facility] 06-01-2022 Note HNO ID: [id number] Author: Jaquelin Soriano PA-C Service: ? Author Type: Physician Fulfillment Associate Type: Progress Notes Filed: 06/01/2022 2:48 PM Note Text: This note was created using Posmetricsriter. Subjective Ulises Blake is a 31 year old female. HPI Patient presents with congestion postnasal drip over the past 4 days. Her children have been sick recently. No fever. Minimal cough. Her voice is little hoarse. No vomiting or diarrhea. No cp or sob. No otc meds. Review of Systems Constitutional: Negative for fatigue and fever. HENT: Positive for congestion, postnasal drip and voice change. Respiratory: Positive for cough. Cardiovascular: Negative. Gastrointestinal: Negative. Genitourinary: Negative. Musculoskeletal: Negative. All other systems reviewed and are negative. PAST MEDICAL HISTORY Diagnosis Date fracture 4th grade left arm Generalized anxiety disorder Anxiety, Generalized GERD (gastroesophageal reflux disease) Infertility, female, secondary Kidney stones 07/2017 Panic attacks Current Outpatient Medications Medication Sig Dispense Refill albuterol HFA (PROVENTIL HFA, VENTOLIN HFA) 90 mcg/actuation inhaler Inhale 2 Puffs as instructed every 6 hours as needed for Wheezing/Shortness of Breath. 1 Inhaler 2 Njgaqbbh-Yn-Iyp-Fe-FA tab Take one(1) tablet daily. 0 No current facility-administered medications for this visit. PAST SURGICAL HISTORY Procedure Laterality Date LAPS SURG CHOLECYSTECTOMY W/CHOLANGIOGRAPHY 12/31/12 Normal IOC PAST SURGICAL HISTORY OF 2007 ACL REPAIR, Right PAST SURGICAL HISTORY OF LASER REMOVAL OF WARTS ON KNEES/HANDS PAST SURGICAL HISTORY OF lithotripsy FAMILY HISTORY Problem Relation Age of Onset Thyroid Mother Hypothyriodism Hypertension Father Cancer Paternal Grandmother Colon Cancer Other great PGF Thyroid Sister Hypothyroidism Thyroid Maternal Aunt Hypothyroidism Social History Tobacco Use Smoking status: Never Smokeless tobacco: Never Substance Use Topics Alcohol use: No Drug use: No Objective BP 122/68 Pulse 100 Temp 36.1 ?C (96.9 ?F) Resp 18 Wt 83.5 kg (184 lb) LMP 11/06/2018 SpO2 96% BMI 34.77 kg/m? Physical Exam Vitals reviewed. Constitutional: Appearance: Normal appearance. HENT: Head: Normocephalic and atraumatic. Right Ear: Tympanic membrane, ear canal and external ear normal. Left Ear: Tympanic membrane, ear canal and external ear normal. Nose: Nose normal. Mouth/Throat: Mouth: Mucous membranes are moist. Pharynx: Oropharynx is clear. No oropharyngeal exudate or posterior oropharyngeal erythema. Cardiovascular: Rate and Rhythm: Normal rate and regular rhythm. Heart sounds: Normal heart sounds. Pulmonary: Effort: Pulmonary effort is normal. Breath sounds: Normal breath sounds. Musculoskeletal: Cervical back: Neck supple. Skin: General: Skin is warm and dry. Neurological: General: No focal deficit present. Mental Status: She is alert and oriented to person, place, and time. Assessment and Plan ASSESSMENT/PLAN: 1. Viral URI - ICD9: 465.9, ICD10: J06.9 - Discussed viral etiology and rationale for treatment. - Symptomatic treatment with prn analgesia - Supportive care with fluids and rest -Patient declined any viral testing. Jaquelin Soriano PA-C [facility] 06-01-2022 History of Presen t illness Narrative This note was created using Fortisphereter. Subjective Ulises Blake is a 31 year old female. HPI Patient presents with congestion postnasal drip over the past 4 days. Her children have been sick recently. No fever. Minimal cough. Her voice is little hoarse. No vomiting or diarrhea. No cp or sob. No otc meds. Review of Systems Constitutional: Negative for fatigue and fever. HENT: Positive for congestion, postnasal drip and voice change. Respiratory: Positive for cough. Cardiovascular: Negative. Gastrointestinal: Negative. Genitourinary: Negative. Musculoskeletal: Negative. All other systems reviewed and are negative. PAST MEDICAL HISTORY Diagnosis Date fracture 4th grade left arm Generalized anxiety disorder Anxiety, Generalized GERD (gastroesophageal reflux disease) Infertility, female, secondary Kidney stones 07/2017 Panic attacks Current Outpatient Medications Medication Sig Dispense Refill albuterol HFA (PROVENTIL HFA, VENTOLIN HFA) 90 mcg/actuation inhaler Inhale 2 Puffs as instructed every 6 hours as needed for Wheezing/Shortness of Breath. 1 Inhaler 2 Mhwisyri-Zt-Rrt-Fe-FA tab Take one(1) tablet daily. 0 No current facility-administered medications for this visit. PAST SURGICAL HISTORY Procedure Laterality Date LAPS SURG CHOLECYSTECTOMY W/CHOLANGIOGRAPHY 12/31/12 Normal IOC PAST SURGICAL HISTORY OF 2007 ACL REPAIR, Right PAST SURGICAL HISTORY OF LASER REMOVAL OF WARTS ON KNEES/HANDS PAST SURGICAL HISTORY OF lithotripsy FAMILY HISTORY Problem Relation Age of Onset Thyroid Mother Hypothyriodism Hypertension Father Cancer Paternal Grandmother Colon Cancer Other great PGF Thyroid Sister Hypothyroidism Thyroid Maternal Aunt Hypothyroidism Social History Tobacco Use Smoking status: Never Smokeless tobacco: Never Substance Use Topics Alcohol use: No Drug use: No Objective BP 122/68 Pulse 100 Temp 36.1 C (96.9 F) Resp 18 Wt 83.5 kg (184 lb) LMP 11/06/2018 SpO2 96% BMI 34.77 kg/m Physical Exam Vitals reviewed. Constitutional: Appearance: Normal appearance. HENT: Head: Normocephalic and atraumatic. Right Ear: Tympanic membrane, ear canal and external ear normal. Left Ear: Tympanic membrane, ear canal and external ear normal. Nose: Nose normal. Mouth/Throat: Mouth: Mucous membranes are moist. Pharynx: Oropharynx is clear. No oropharyngeal exudate or posterior oropharyngeal erythema. Cardiovascular: Rate and Rhythm: Normal rate and regular rhythm. Heart sounds: Normal heart sounds. Pulmonary: Effort: Pulmonary effort is normal. Breath sounds: Normal breath sounds. Musculoskeletal: Cervical back: Neck supple. Skin: General: Skin is warm and dry. Neurological: General: No focal deficit present. Mental Status: She is alert and oriented to person, place, and time. Assessment and Plan ASSESSMENT/PLAN: 1. Viral URI - ICD9: 465.9, ICD10: J06.9 - Discussed viral etiology and rationale for treatment. - Symptomatic treatment with prn analgesia - Supportive care with fluids and rest -Patient declined any viral testing. Jaquelin Soriano PA-C documented in this encounter [facility] 05-29-2022 Note HNO ID: [id number] Author: Jessica Fung APRN.SIMPLEX PRINTER INSTALLER Service: ? Author Type: Nurse Practitioner Type: Progress Notes Filed: 05/29/2022 9:56 AM Note Text: Subjective The history is provided by the patient and a relative. No foreign language stenographer was used. HPI Ulises Blake is a 31 year old female who presents today for CC of cough, congestion and loss of voice. She had not used any otc cold medications. Family members also ill. Declines covid/flu testing. BP 132/82 Pulse 112 Temp 36.9 ?C (98.5 ?F) (Tympanic) Resp 18 Wt 84.1 kg (185 lb 6.4 oz) LMP 11/06/2018 SpO2 98% BMI 35.03 kg/m? Social History Tobacco Use Smoking status: Never Smokeless tobacco: Never Substance Use Topics Alcohol use: No Drug use: No PAST MEDICAL HISTORY Diagnosis Date fracture 4th grade left arm Generalized anxiety disorder Anxiety, Generalized GERD (gastroesophageal reflux disease) Infertility, female, secondary Kidney stones 07/2017 Panic attacks I have confirmed and edited as necessary, the [facility] Review of Systems Constitutional: Negative for chills and fever. HENT: Positive for congestion and sore throat. Negative for ear pain and sinus pain. Respiratory: Positive for cough. Negative for sputum production, shortness of breath and wheezing. Cardiovascular: Negative for chest pain. Musculoskeletal: Negative for myalgias. Neurological: Negative for headaches. Objective Physical Exam Vitals and nursing note reviewed. HENT: Head: Normocephalic and atraumatic. Right Ear: Tympanic membrane, ear canal and external ear normal. Left Ear: Tympanic membrane, ear canal and external ear normal. Nose: No mucosal edema, congestion or rhinorrhea. Right Sinus: No maxillary sinus tenderness or frontal sinus tenderness. Left Sinus: No maxillary sinus tenderness or frontal sinus tenderness. Mouth/Throat: Pharynx: Uvula midline. Posterior oropharyngeal erythema present. No oropharyngeal exudate. Cardiovascular: Rate and Rhythm: Normal rate and regular rhythm. Heart sounds: Normal heart sounds. Pulmonary: Effort: Pulmonary effort is normal. Breath sounds: Normal breath sounds. Lymphadenopathy: Head: Right side of head: No submental, submandibular or tonsillar adenopathy. Left side of head: No submental, submandibular or tonsillar adenopathy. Cervical: No cervical adenopathy. Skin: General: Skin is warm and dry. Neurological: Mental Status: She is alert. Psychiatric: Mood and Affect: Affect normal. ASSESSMENT/PLAN: 1. URI with cough and congestion - ICD9: 465.9, ICD10: J06.9 (primary diagnosis) - Discussed viral etiology and rationale for treatment. - Symptomatic treatment with prn analgesia - Supportive care with fluids and rest 2. Hoarse voice quality - ICD9: 784.42, ICD10: R49.0 Comfort measures as discussed. Diagnosis and treatment plan were discussed and questions were answered to the patient's satisfaction. Pt acknowledged understanding of concepts and follow up plan. Specific signs and symptoms that would indicate the need for higher level of care were discussed in detail warranting prompt ER evaluation. Jessica Fung APRN.CNP [facility] 05-29-2022 Instructions Jessica Fung APRN.CNP - 05/29/2022 9:42 AM EST Rest, increase water intake Motrin or Tylenol as needed for fever or pain. Salt water gargles, chloraseptic spray or lozenges as needed for sore throat. Warm beverages, honey. Nasal saline spray as needed Cool mist humidifier at night A cold normally lasts 7-10 days. If your symptoms are lasting longer, develop fever, or worsening by that time instead of improving then return to clinic or follow up with PCP for re-evaluation. Tylenol (generic acetaminophen) 500 mg-2 tabs every 8 hrs. as needed for fever and aches Ibuprofen 600 mg (3-200mg tablets) every 6 hours -Sudafed (generic is fine), behind the counter, 2x30 mg tabs twice daily as needed for congestion -Mucinex (generic is fine) Guaifenesin 1200 mg twice daily to help with cough and to thin out mucus documented in this encounter [facility] 05-29-2022 History of Presen t illness Narrative Subjective The history is provided by the patient and a relative. No foreign language stenographer was used. HPI Jazzcigabriela Blake is a 31 year old female who presents today for CC of cough, congestion and loss of voice. She had not used any otc cold medications. Family members also ill. Declines covid/flu testing. BP 132/82 Pulse 112 Temp 36.9 C (98.5 F) (Tympanic) Resp 18 Wt 84.1 kg (185 lb 6.4 oz) LMP 11/06/2018 SpO2 98% BMI 35.03 kg/m Social History Tobacco Use Smoking status: Never Smokeless tobacco: Never Substance Use Topics Alcohol use: No Drug use: No PAST MEDICAL HISTORY Diagnosis Date fracture 4th grade left arm Generalized anxiety disorder Anxiety, Generalized GERD (gastroesophageal reflux disease) Infertility, female, secondary Kidney stones 07/2017 Panic attacks I have confirmed and edited as necessary, the [facility] Review of Systems Constitutional: Negative for chills and fever. HENT: Positive for congestion and sore throat. Negative for ear pain and sinus pain. Respiratory: Positive for cough. Negative for sputum production, shortness of breath and wheezing. Cardiovascular: Negative for chest pain. Musculoskeletal: Negative for myalgias. Neurological: Negative for headaches. Objective Physical Exam Vitals and nursing note reviewed. HENT: Head: Normocephalic and atraumatic. Right Ear: Tympanic membrane, ear canal and external ear normal. Left Ear: Tympanic membrane, ear canal and external ear normal. Nose: No mucosal edema, congestion or rhinorrhea. Right Sinus: No maxillary sinus tenderness or frontal sinus tenderness. Left Sinus: No maxillary sinus tenderness or frontal sinus tenderness. Mouth/Throat: Pharynx: Uvula midline. Posterior oropharyngeal erythema present. No oropharyngeal exudate. Cardiovascular: Rate and Rhythm: Normal rate and regular rhythm. Heart sounds: Normal heart sounds. Pulmonary: Effort: Pulmonary effort is normal. Breath sounds: Normal breath sounds. Lymphadenopathy: Head: Right side of head: No submental, submandibular or tonsillar adenopathy. Left side of head: No submental, submandibular or tonsillar adenopathy. Cervical: No cervical adenopathy. Skin: General: Skin is warm and dry. Neurological: Mental Status: She is alert. Psychiatric: Mood and Affect: Affect normal. ASSESSMENT/PLAN: 1. URI with cough and congestion - ICD9: 465.9, ICD10: J06.9 (primary diagnosis) - Discussed viral etiology and rationale for treatment. - Symptomatic treatment with prn analgesia - Supportive care with fluids and rest 2. Hoarse voice quality - ICD9: 784.42, ICD10: R49.0 Comfort measures as discussed. Diagnosis and treatment plan were discussed and questions were answered to the patient's satisfaction. Pt acknowledged understanding of concepts and follow up plan. Specific signs and symptoms that would indicate the need for higher level of care were discussed in detail warranting prompt ER evaluation. Jessica Fung APRN.CLINT documented in this encounter [facility] 05-02-2022 Miscellaneous Notes Patient calls and notified of results and providers instructions. Patient verbalizes understanding. Leyda Topete RN Please call patient and let her know that CT of flank was negative for any kidney stones, hydronephrosis, or any acute concerns. I would like to repeat UA in 2-4 weeks to reassess blood in urine to make sure this improves. Otherwise, back pain may be related to muscle strain. I recommend trial OTC NSAID to help improve discomfort. Thank you, Moon Tom APRN.CLINT documented in this encounter [facility] 05-02-2022 History of Presen t illness Narrative Radiology Service Progress Note PATIENT NAME: Ulises Blake DATE OF SERVICE: May 02, 2022 TIME: 4:11 PM PATIENT IDENTITY VERIFICATION COMPLETED USING TWO (2) IDENTIFIERS: Name and Date of confirmed by patient verbally. FALL SCREENING: Has the patient had 2 falls in the last year or 1 fall with injury or currently using an Ambulatory Assistive Device (Walker, Cane, Wheelchair, Crutches, etc.)? No PATIENT GENDER DATA: Female. status: : No status: NO. PATIENT RELEVANT IMPLANT DATA REVIEWED: Yes RADIOLOGY DEPARTMENT: CT; Exam(s) Completed: Abdomen/Pelvis PERIPHERAL IV DATA: Not applicable SIGNED BY: RT Lisa(R) May 02, 2022 4:11 PM documented in this encounter [facility] 05-02-2022 History of Presen t illness Narrative Chief Complaint Patient presents with: Pain: Couple days ago pain came back, pushing fluids its been off and on foe a tear since had last child when had stent placed. HPI Ulises Blake is a 31 year old female who presents here today for Above Complaints. Ulises is an established patient of Dr. Booker DO. Ulises is a new patient to me today. Concerns today.. Flank pain -- R sided flank pain x 1 week. Reports mild irritation and annoyance. Wraps around R side intermittently. Reports it as an aching and burning sensation. Reports increase in pop -- drank pop every day for the past few weeks. Also admits to poor water intake. Hx of kidney stones x 2 to the R. Needed surgery with both. Last episode was in 2020. Had ureter stent placed as well x 2 weeks due to stone, and associated infection/abscess. This was done by [facility] in May 2021. Dx of emphysematous pyelonephritis and calculus. Reached out to [place] [facility]ist for this concern today and due to self-pay, was told to come to PCP first to make sure urologist was needed. Denies dysuria or noticeable hematuria. Denies any urinary urgency or frequency. SHABANA/depression -- Has been off and on medication her whole life. No medication regimen currently. Does not like feeling dependent on medication. Recently got off Effexor due to most recent . Still breast feeding for hopefully a few more months. Feels mood is well managed at this time on her own but would like to discuss options once she is done and see how she feels. No SI/HI. Catharpin effexor worked the best for her so far. Has tried zoloft and celexa in the past without success. Past medical history, appointments, medications, allergies reviewed. Previous Medical History PAST MEDICAL HISTORY Diagnosis Date fracture 4th grade left arm Generalized anxiety disorder Anxiety, Generalized GERD (gastroesophageal reflux disease) Infertility, female, secondary Kidney stones 07/2017 Panic attacks Previous Surgical History PAST SURGICAL HISTORY Procedure Laterality Date LAPS SURG CHOLECYSTECTOMY W/CHOLANGIOGRAPHY 12/31/12 Normal IOC PAST SURGICAL HISTORY OF 2007 ACL REPAIR, Right PAST SURGICAL HISTORY OF LASER REMOVAL OF WARTS ON KNEES/HANDS PAST SURGICAL HISTORY OF lithotripsy Family History FAMILY HISTORY Problem Relation Age of Onset Thyroid Mother Hypothyriodism Hypertension Father Cancer Paternal Grandmother Colon Cancer Other great PGF Thyroid Sister Hypothyroidism Thyroid Maternal Aunt Hypothyroidism Patient Allergies ALLERGIES Allergen Reactions Latex Swelling SWELLING WITH CONDOM USE Paxil [Paroxetine H* Intolerance Didn't like how made her feel. Current Medications Current Outpatient Medications on File Prior to Visit Medication Sig cephALEXin (KEFLEX) 500 mg capsule Take 500 mg by mouth once daily. ranitidine (ZANTAC) 150 mg tablet Take 1 tablet by mouth twice daily. as needed (Patient not taking: Reported on 01/29/2021 ) albuterol HFA (PROVENTIL HFA, VENTOLIN HFA) 90 mcg/actuation inhaler Inhale 2 Puffs as instructed every 6 hours as needed for Wheezing/Shortness of Breath. Omqzouub-Ps-Bdt-Fe-FA ( VITAMIN) ORAL Tab Take one(1) tablet daily. No current facility-administered medications on file prior to visit. Social History Social History Tobacco Use Smoking status: Never Smokeless tobacco: Never Substance Use Topics Alcohol use: No Drug use: No REVIEW OF SYSTEMS: as above Reviewed relevant PMHx, PSHx, Social Hx, current medications and allergies. Review of Symptoms REVIEW OF SYSTEMS See HPI. All other systems are negative. EXAM: BP 110/68 (BP Site: Left Arm, BP Position: Sitting, BP Cuff Size: Regular Adult) Pulse 86 Temp 36.5 C (97.7 F) Wt 84.7 kg (186 lb 12.8 oz) LMP 11/06/2018 SpO2 98% BMI 35.30 kg/m General Appearance: Well appearing, alert, in no acute distress, well-hydrated, well nourished.. Skin: Skin color, texture, turgor normal, no suspicious rashes or lesions. Head: Normocephalic, no masses, lesions, tenderness or abnormalities. Back:no pain to palpation of vertebrae, good flexion and extension, good range of motion, no muscle tenderness, reflexes are 2+ and symmetric, motor and sensory appear to be normal, negative SLR test, no evidence of scoliosis Lungs: Lungs clear to auscultation. No wheezing, rhonchi, rales.. Heart: RRR without murmur, gallop, or rubs. No ectopy. Abdomen: Normal abdominal exam, Abdomen soft, non-tender. Bowel sounds normal. No masses, organomegaly, Negative CVA tenderness. Health Maintenance List HEPATITIS B(1 of 3 - 3-dose series) Never done COVID-19 VACCINE(1) Never done HEPATITIS C SCREENING Never done HPV TESTING Never done PAP TESTING due on 02/04/2020 DEPRESSION ASSESSMENT Never done INFLUENZA(1) due on 03/10/2022 DTAP,TDAP,TD(5 - Td or Tdap) due on 12/01/2025 HIV SCREENING Completed ASSESSMENT/PLAN: 1. Flank pain - ICD9: 789.09, ICD10: R10.9 Biggest concern is for kidney stone due to history and UA results. Stat flank CT scan. If concerning, will refer back to [facility] due to knowing the patient's past. Discussed Toradol injection -- pt declined at this time due to mild pain currently. - Work up with CT flank study - UA DIP, URINE (POC) --- normal besides small amount of blood. - URINE CULTURE - DEPRESSION SCREENING/ASSESSMENT - CT FLANK WO IVCON 2. SHABANA (generalized anxiety disorder) - ICD9: 300.02, ICD10: F41.1 Continue to monitor at this time. Stable. Well managed on her own without medication regimen currently. RTO once done to discuss options and reassess. Will get recent routine blood work results from [facility] office to update our records. Has been using OB as PCP recently due to 4 young children. RTO as needed and for routine physical visit. Prescription instructions reviewed with patient as applicable. Potential red flag symptoms discussed with the patient. Reviewed appropriate action plan to take if red flag symptoms occur. Patient agreeable to treatment plan. Moon Tom APRN.[employer]PLE[employer] PRINTER INST[employer] [address] [place] [address] documented in this encounter [facility] documented as of this encounter (statuses as of 05/02/2022) [facility] History of Past illness Narrative* Problem Noted Date Resolved Date Infertility, female, secondary 04/03/2013 0 07/13/2015 Vertigo of central origin 09/12/20122015 Peripheral vertigo, unspecified 09/12/2012 07/13/2015 C. difficile colitis 08/23/2011 04/03/2013 Hypoglycemia 05/13/2010 07/13/2015 Anxiety 04/26/2010 07/13/2015 documented as of this encounter (statuses as of 05/02/2022) [facility] History of Past illness Narrative* Problem Noted Date Resolved Date Infertility, female, secondary 04/03/2013 0 07/13/2015 Vertigo of central origin 09/12/20122015 Peripheral vertigo, unspecified 09/12/2012 07/13/2015 C. difficile colitis 08/23/2011 04/03/2013 Hypoglycemia 05/13/2010 07/13/2015 Anxiety 04/26/2010 07/13/2015 documented as of this encounter (statuses as of 05/29/2022) [facility] History of Past illness Narrative* Problem Noted Date Resolved Date Infertility, female, secondary 04/03/2013 0 07/13/2015 Vertigo of central origin 09/12/20122015 Peripheral vertigo, unspecified 09/12/2012 07/13/2015 C. difficile colitis 08/23/2011 04/03/2013 Hypoglycemia 05/13/2010 07/13/2015 Anxiety 04/26/2010 07/13/2015 documented as of this encounter (statuses as of 06/01/2022) [facility] History of Past illness Narrative* Problem Noted Date Diagnosed Date Resolved Date Infertility, female, secondary 04/03/2013 07/13/2015 Vertigo of central origin 09/12/2012 Peripheral vertigo, unspecified 09/12/2012 07/13/2015 C. difficile colitis 08/23/2011 013 Hypoglycemia 05/13/2010 07/13/2015 Anxiety 04/26/2010 07/13/2015 documented as of this encounter (statuses as of 05/14/2023) [facility] History of Past illness Narrative* Problem Noted Date Diagnosed Date Resolved Date Infertility, female, secondary 04/03/2013 07/13/2015 Vertigo of central origin 09/12/2012 Peripheral vertigo, unspecified 09/12/2012 07/13/2015 C. difficile colitis 08/23/2011 013 Hypoglycemia 05/13/2010 07/13/2015 Anxiety 04/26/2010 07/13/2015 documented as of this encounter (statuses as of 05/24/2023) [facility] note* Diagnosis Flank pain- Primary Abdominal pain, unspecified site SHABANA (generalized anxiety disorder) Generalized anxiety disorder documented in this encounter [facility] note* Diagnosis Flank pain- Primary Abdominal pain, unspecified site documented in this encounter [facility] note* Diagnosis URI with cough and congestion- Primary Hoarse voice quality Dysphonia documented in this encounter [facility] note* Diagnosis Viral URI- Primary Acute upper respiratory infections of unspecified site documented in this encounter [facility] note* Diagnosis Flank pain Abdominal pain, unspecified site documented in this encounter [facility] note* Diagnosis Acute non-recurrent maxillary sinusitis- Primary documented in this encounter [facility] Reason for Referral Specialty Diagnoses / Procedures Referred By Contac t Referred To Contact CT IMAGING Diagnoses Flank pain Procedures CT FLANK WO IVCON CT ABD & PELVIS W/O CONTRAST Moon Tom, KHLOE.SIMPLEX PRINTER INSTALLER [address] [place] [address] Ct Imaging Referral ID Status Reason Start Date Expiration Date V isits Requested Visits Authorized [id number] Closed Auto-Generate d Referral 05/02/2022 06/01/2023 1 1 Specialty Diagnoses / Procedures Referred By Contac t Referred To Contact CT IMAGING Diagnoses Flank pain Procedures CT FLANK WO IVCON CT ABD & PELVIS W/O CONTRAST Moon Boyle, KHLOE.SIMPLEX PRINTER INSTALLER [address] [place] [address] [place] [address] Summary Purpose Family History No Family History Records Found Advance Directives No Advanced Directives Records Found Additional Source Comments Source Comments (unrecognize d section and content) In the event this informatio n is protected by the Federal Confidentiality of Alcohol and Drug Abuse Patient Records regulations: The Federal rules restrict any use of the information to criminally investigate or prosecute any alcohol or drug abuse patient.[facility] the event this information is protected by the Federal Confidentiality of Alcohol and Drug Abuse Patient Records regulations: The Federal rules restrict any use of the information to criminally investigate or prosecute any alcohol or drug abuse patient.[facility] the event this information is protected by the Federal Confidentiality of Alcohol and Drug Abuse Patient Records regulations: The Federal rules restrict any use of the information to criminally investigate or prosecute any alcohol or drug abuse patient.[facility] the event this information is protected by the Federal Confidentiality of Alcohol and Drug Abuse Patient Records regulations: The Federal rules restrict any use of the information to criminally investigate or prosecute any alcohol or drug abuse patient.[facility] the event this information is protected by the Federal Confidentiality of Alcohol and Drug Abuse Patient Records regulations: The Federal rules restrict any use of the information to criminally investigate or prosecute any alcohol or drug abuse patient.[facility] the event this information is protected by the Federal Confidentiality of Alcohol and Drug Abuse Patient Records regulations: The Federal rules restrict any use of the information to criminally investigate or prosecute any alcohol or drug abuse patient.[facility] Reason for Visit (unrecogniz ed section and content) Reason Comments Results Reason Comments Cough Cough, congestion an d ST x 3 days Reason Comments Post-nasal Drip sinus pressure x 6 d ays Reason Comments Radiology CT Specialty Diagnoses / Procedures Referred By Markel richard Referred To Contact CT IMAGING Diagnoses Flank pain Procedures CT FLANK WO IVCON CT ABD & PELVIS W/O CONTRAST Moon Boyle, [employer]OUNTS MANAGER.[employer]PLE[employer] PRINTER INSTALLER [address] [place] [address] Ct Imaging [place] [address] Referral ID Status Reason Start Date Expiration Date V isits Requested Visits Authorized [id number] Closed Auto-Generate d Referral 05/02/2022 06/01/2023 1 1 Reason Comments Sinus Problem Sinus pain, preassur e headaches x1 week Specialty Diagnoses / Procedures Referred By Markel richard Referred To Contact [facility] Diagnoses sinus, congestion, headache Procedures EST SAME DAY Self [facility] [address] [place] [address] Referral ID Status Reason Start Date Expiration Date Visits Requested Visits Authorized [id number] Pending Review Financial Clearance Required - Self Pay 3 08/22/2023 1 1 Care Teams (unrecognized sec tion and content) Machine Dyer Relationship Specialty Start Date End Date Robert Celeste DO [address] [place] [address] PCP - General Family Medicine 10/10/12 Machine Dyer Relationship Specialty Start Date End Date Robert Celeste DO [address] [place] [address] PCP - General Family Medicine 10/10/12 Machine Dyer Relationship Specialty Start Date End Date Robert Celeste DO [address] [place] [address] PCP - General Family Medicine 10/10/12 Machine Dyer Relationship Specialty Start Date End Date Robert Celeste DO [address] [place] [address] PCP - General Family Medicine 10/10/12 Machine Dyer Relationship Specialty Start Date End Date Robert Celeste DO [address] [place] [address] PCP - General Family Medicine 10/10/12 INFORMATION SOURCE (unrecogn ized section and content) FOR RECORDS PERTAINING TO PATIENTS WHO ARE OR HAVE BEEN ENROLLED IN A CHEMICAL DEPENDENCY/SUBSTANCEABUSE PROGRAM, SOME INFORMATION MAY BE OMITTED. This clinical summary was aggregated from multiple sources. Caution should be exercised in using it in the provision of clinical care. This summary normalizes information from multiple sources, and as a consequence, information in this document may materially change the coding, format and clinical context of patient data. In addition, data may be omitted in some cases. CLINICAL DECISIONS SHOULD BE BASED ON THE PRIMARY CLINICAL RECORDS. [facility]. provides no warranty or guarantee of the accuracy or completeness of information in this document.
[2023-08-03 14:09] LABS: HPV APTIMA, High Risk Negative (Negative)
== END | disposition home or self-care (01) ==
PROVIDERS: PCP Student in an Organized Health Care Education/Training Program; Referring Provider Obstetrics & Gynecology; Visit Provider Obstetrics & Gynecology
DX: Z12.4 Encounter for screening for malignant neoplasm of cervix (principal)
CPT/HCPCS: 87624; 88175; G0145

== ENCOUNTER 2025-01-29 18:17 | Emergency (ER) | payer SELFPAY ==
[2025-01-29 18:19] VITALS: BP 147/97; PULSE 137; RESP 18; TEMP 36.6; O2SAT 98; BMI 27.0
--- NOTE | 2025-01-29 18:57 | EDS_ITS ---
HPI History of Present Illness Chief Complaint: Palpitations PFSH PFS Medical History Anxiety MIRANDA II (cervical intraepithelial neoplasia II) HPV test positive Low grade squamous intraepithelial lesion (LGSIL) Syncope Home Medications ?Medication ?Instructions ?Recorded ?Last Taken ?Type NK 07/31/23 Unknown History Allergy/AdvReac Type Severity Reaction Status Date / Time latex Allergy Swelling Verified 01/29/25 18:20 oxycodone Allergy Itching Verified 01/29/25 18:20 Family History Unknown Colon cancer Surgical History H/O lithotripsy History of bilateral salpingectomy History of cholecystectomy S/P ACL repair Social History adopted: No household members: family housing: house number of children: 4 current occupational status: employed Smoking Status: Never smoker second hand exposure: No alcohol intake: never substance use type: does not use caffeine: Yes what type of physical activity do you participate in: none seatbelt use: always do you feel safe at home: Yes additional social history: [place]- Self Employed Patient works for [employer] [facility] [employer] [facility] [employer] EXAM Physical Exam Const Vital Signs: 01/29/25 18:19 01/29/25 19:13 01/29/25 19:13 Temperature 97.9 F Temperature Source Oral Pulse Rate 137 H Respiratory Rate 18 Respiratory Effort Normal Blood Pressure 147/97 H Blood Pressure Mean 113 Pulse Ox 98 Oxygen Delivery Method Room Air Room Air 01/29/25 19:18 01/29/25 20:00 Temperature Temperature Source Pulse Rate 112 H 96 Respiratory Rate 20 H 19 H Respiratory Effort Blood Pressure 152/93 H 128/93 H Blood Pressure Mean 112 104 Pulse Ox 98 98 Oxygen Delivery Method Room Air Room Air MDM MDM MDM Narrative Medical decision making narrative: HISTORY OF PRESENT ILLNESS: Chief complaint: Palpitations, elevated heart rate 34-year-old female presents with concern for elevated heart rate for 2 days. Notes her heart rate has been as high as 130s and 160s. She notes chest heaviness and tightness. She further states she has recently been exposed to pneumonia and her children. She notes feeling short of breath and have chest tightness. Notes pain is worse with breathing. No she feels warm denies fever. Denies vomiting or diarrhea. Denies family history of abnormal heart rhythms. Denies drug use. Denies history of thyroid dysfunction. The patient denies recent surgery in the last 4 weeks or immobilization in the last 3 days, denies previous diagnosis of DVT or PE, hemoptysis, unilateral leg swelling or malignancy with treatment the last 6 months or palliative. No estrogen use noted. REVIEW OF SYSTEMS: Pertinent positives: Chest tightness, shortness of breath, palpitation Pertinent negatives: Fever, syncope PHYSICAL EXAM: Nursing triage notes reviewed, Vital signs reviewed Constitutional: please see [facility] HENT: MMM Eyes: Pupils equal round and reactive to light, Extraocular muscles intact Neck: No stridor, no JVD, full neck ROM Lungs: Clear to auscultation, No wheezing or rales. No increased work of breathing, no conversational dyspnea, no accessory muscle use, no nasal flaring. No respiratory distress noted Heart: Fast rate and rhythm, No murmurs, No rubs and No gallops, 2+ distal pulses (radial, femoral, posterior tibial) in all extremities Abdomen: Soft, there is no tenderness, rigidity, rebound or guarding, no obvious peritoneal signs, no palpable pulsatile abdominal masses, no auscultated abdominal bruit : No CVAT Extremities: No edema Neuro: No new focal neurological deficits, cranial nerves II through XII intact, 5/5 strength in all present extremities. Intact sensation to light touch in all present extremities, 2+ reflexes bilateral patella tendons. Skin: No rash or lesions noted MEDICAL DECISION MAKING: Chief Complaint: please see [facility] External records reviewed: I reviewed prior cardiovascular testing Factors affecting care: As per HPI Social determinants of health: Denies illicit drugs History obtained from others: none Consults: none [facility] Narrative: The patient was initially tachycardic rate 137, afebrile. Exam without focal cardiopulmonary abnormalities. Heart rate was fast however was regular I considered the following differential diagnosis: Arrhythmia, anemia, electrolyte disturbance, dehydration, PE, thyroid dysfunction, drug ingestion I obtained a broad lab and imaging workup to further determine if the patient was suffering from a life-threatening etiology. Initially resuscitated patient 1 L normal saline ALL IMAGES (IF OBTAINED) HAVE BEEN PERSONALLY REVIEWED AND INTERPRETED BY MYSELF. CBC with no leukocytosis, no anemia or thrombocytopenia D-dimer negative making VTE and dissection less likely BMP without evidence of significant electrolyte abnormalities, no anion gap, no acute kidney injury. Noted borderline elevated anion gap this may be related to infectious etiology certainly there is no sign of sepsis on the patient's initial exam. High-sensitivity troponin is negative, no evidence of myocardial ischemia TSH, free T3 and free T4 normal Chest x-ray was read reviewed by myself I do see some sign of possible infiltrate right lower lobe although this is very faint. Radiologist notes possible atelectasis or pneumonia. Given sick contacts and children will give antibiotics to treat community- acquired pneumonia. On reevaluation patient heart rate improved to 96. She was given a dose of Augmentin here and a 7-day course. Strict return precautions were discussed The patient and/or family, caregivers express understanding. The patient and/or family, caregivers agrees with the plan. Shared decision making: I will have a discussion with the patient and or visitors regarding risk/benefits of further testing or admission. They will be made aware of of the risk/benefits inherent in this decision they will be given the opportunity to voice understanding. Total critical care time today provided was at least 0 minutes. This excludes separately billable procedures. Critical care time (if documented) is secondary to the patient having high probability of clinically significant/life threatening deterioration in the patient's condition which required my urgent intervention. Impression: 1. Tachycardic 2. Community acquired pneumonia Dispo: Discharge home This note was generated with [employer] dictation software. It may contain incorrect words, spelling, and punctuation that were not noted in review of the chart prior to signing. Lab Data Labs: Laboratory Results - last 24 hr 01/29/25 18:59 WBC 7.1 RBC 4.25 Hgb 12.4 Hct 35.7 L MCV 84.0 MCH 29.2 MCHC 34.7 RDW Std Deviation 36.3 RDW Coeff of Seferino 12.0 Plt Count 274 MPV 9.8 Immature Gran % (Auto) 0.400 Neut % (Auto) 74.4 H Lymph % (Auto) 14.3 L Haakon % (Auto) 10.5 H Eos % (Auto) 0.1 Baso % (Auto) 0.3 Absolute Neuts (auto) 5.3 Absolute Lymphs (auto) 1.01 Nucleated RBC % 0 D-Dimer Quant (PE/DVT) 0.38 Sodium 138 Potassium 3.4 Chloride 100 Carbon Dioxide 22.2 Anion Gap 16 H BUN 6 Creatinine 0.61 L Estim Creat Clear Calc 111.00 Est GFR (MDRD) Non-Af 120 BUN/Creatinine Ratio 10.3 Glucose 107 H Calcium 9.0 Troponin T High Sens < 6 TSH 1.720 Free T4 1.40 Free T3 pg/dL 2.6 Radiography Diagnostic Testing: Clinical Impression(s) from Imaging Studies Chest X-Ray 01/29/25 19:10 IMPRESSION: Right basilar atelectasis or pneumonia. Reading Location: [facility] Discharge Plan Triage Chief Complaint: Palpitations ED Provider: Duke Garvin Dx/Rx/DC Orders Prescriptions: No Action NK Primary Care Provider: Bao Mosquera [employer] CONSULTANT Referrals: Robert Celeste DO [Non-Staff] - Print Language: Upper Sorbian
--- NOTE | 2025-01-29 18:59 | EKG12_ITS ---
Test Reason : PALP Blood Pressure : */* mmHG Vent. Rate : 123 BPM Atrial Rate : 123 BPM P-R Int : 126 ms QRS Dur : 84 ms QT Int : 326 ms P-R-T Axes : 69 41 22 degrees QTcB Int : 466 ms Sinus tachycardia Otherwise normal ECG Confirmed by BEN BRIONES, HANNAH ([id number]), makeup editor JOCELYN MORALES ([id number]) on 01/31/2025 1:12:24 PM Referred By: ARLEEN Confirmed By: HANNAH CONTRERAS MD
--- NOTE | 2025-01-29 19:10 | RAD_ITS ---
EXAM: XR Chest, 1 View CLINICAL INDICATION: CHEST PAIN TECHNIQUE: Frontal view of the chest. COMPARISON: No relevant prior studies available. FINDINGS: LUNGS AND PLEURAL SPACES: Right basilar atelectasis or pneumonia. No pneumothorax. HEART: Unremarkable. No cardiomegaly. MEDIASTINUM: Unremarkable. Normal mediastinal contour. BONES/JOINTS: Unremarkable. No acute fracture. RAD/Chest 1 View (Portable) IMPRESSION: Right basilar atelectasis or pneumonia. Reading Location: [id number]
[2025-01-29 19:15] LABS: Hematocrit 35.7 % (37-47); Hemoglobin 12.4 g/dL (12.0-15.0); Immature Granulocytes Count 0.030 X10^3/uL (0.0-0.0); Mean Corp Hgb Conc 34.7 g/dL (32-36); Mean Corpuscular Volume 84.0 fL (81-99); Mean Platelet Vol. 9.8 fl (6.2-12.0); NRBC Flagged by Analyzer 0 % (0-5); Platelet Count 274 K/mm3 (150-450); RBC Distribution Width CV 12.0 % (11.6-14.6); RBC Distribution Width SD 36.3 fl (35.1-43.9); Red Blood Count 4.25 M/mm3 (4.2-5.4); White Blood Count 7.1 K/mm3 (4.4-11.0)
[2025-01-29 19:18] VITALS: BP 152/93; PULSE 112; RESP 20; O2SAT 98
[2025-01-29] MEDS: 0.9% Normal Saline (1000mL) 1,000 ML 999 ML IV (19:26)
[2025-01-29 19:36] LABS: D-Dimer Quantitative (DVT/PE) 0.38 FEU/ug/m (0.27-0.49)
[2025-01-29 20:00] VITALS: BP 128/93; PULSE 96; RESP 19; O2SAT 98
[2025-01-29 20:24] LABS: Anion Gap 16 (5-15); BUN 6 mg/dL (4-19); BUN/Creat Ratio 10.3 RATIO (10-20); Calcium,Total 9.0 mg/dL (7.6-11.0); Carbon Dioxide 22.2 mmol/L (21.0-32.0); Chloride 100 mmol/L (98-108); Estimated Creatinine Clearance 111.00 ml/min (50-250); Free T3 2.6 pg/mL (2.18-3.98); Glucose 107 mg/dL (70-99); Potassium 3.4 mmol/L (3.3-5.1); Troponin T High Sensitivity < 6 ng/L (<=14)
[2025-01-29 21:00] VITALS: BP 136/78; PULSE 100; RESP 20; O2SAT 100
[2025-01-29 21:01] VITALS: BP 136/78; PULSE 100; RESP 20; TEMP 36.8; O2SAT 100
== END 2025-01-29 21:05 | disposition home or self-care (01) ==
PROVIDERS: Emergency Provider Emergency Medicine; PCP Nurse Practitioner Family; Visit Provider Emergency Medicine
DX: J18.9 Pneumonia, unspecified organism (principal)
CPT/HCPCS: 71045; 80048; 84439; 84443; 84481; 84484; 85025; 85379; 93005; 96360; 96361; 99284; A4216